=== PATIENT | male | born 1935 | race Two or more races ===

== ENCOUNTER 2020-10-23 15:15 | Inpatient (IN) | payer MEDICARE, OTHER ==
[~2020-10-23] VITALS: Ht 172.7 cm; Wt 63.5 kg
--- NOTE | 2020-10-23 15:32 | NUR ---
Patient brought in RA 84 for a mechnical fall on the right side of body that occurred three days ago, no signs of acute distress noted
--- NOTE | 2020-10-23 15:33 | NUR ---
at bedside for assessment
[2020-10-23] MEDS ORDERED: OMEP40CA13 PO (16:13)
[2020-10-23] MEDS ORDERED: LEVA15HF4 IH (16:13)
[2020-10-23] MEDS ORDERED: GABA300C PO (16:13)
[2020-10-23] MEDS ORDERED: TIOT18CA3 IH (16:13)
[2020-10-23] MEDS ORDERED: LEVO137T2 PO (16:13)
[2020-10-23] MEDS ORDERED: FLUT1DIS28 IH (16:13)
[2020-10-23] MEDS ORDERED: SERT50TA PO (16:13)
[2020-10-23] MEDS ORDERED: ASPI81TA31 PO (16:13)
[2020-10-23] MEDS ORDERED: ZOLP10TA2 PO (16:13)
[2020-10-23] MEDS ORDERED: FLUT1BLS4 IH (16:13)
[2020-10-23] MEDS ORDERED: ATOR10TA PO (16:13)
[2020-10-23] MEDS ORDERED: MELO-105 PO (16:13)
[2020-10-23] MEDS ORDERED: SILO8CAP2 PO (16:13)
[2020-10-23] MEDS ORDERED: ERGO500040 PO (16:13)
[2020-10-23] MEDS ORDERED: UMEC1BLS IH (16:13)
[2020-10-23] MEDS ORDERED: METH5TAB2 PO (16:13)
[2020-10-23] MEDS ORDERED: IV NORMAL SALINE 1000 ML BAG IV ONE (16:45)
[2020-10-23 16:59] LABS: BASOPHILS % (AUTO) 0.2 % (0.0-2.0); EOSINOPHILS # (AUTO) 0.1 K/uL (0.0-0.7); EOSINOPHILS % (AUTO) 2.9 % (0.0-7.0); HEMATOCRIT 36.8 % (36.7-47.1); HEMOGLOBIN 12.4 g/dL (12.5-16.3); LYMPHOCYTES # (AUTO) 1.1 K/uL (20.0-40.0); LYMPHOCYTES % (AUTO) 23.5 % (20.5-51.5); MEAN CORPUSCULAR HEMOGLOBIN 33.2 uug (23.8-33.4); MEAN CORPUSCULAR HGB CONC 34 g/dL (32.5-36.3); MEAN CORPUSCULAR VOLUME 98.8 fL (73.0-96.2); MONOCYTES # (AUTO) 0.3 K/uL (2.0-10.0); MONOCYTES % (AUTO) 6.1 % (0.0-11.0); NEUTROPHILS # (AUTO) 3.2 K/uL (1.8-8.9); NEUTROPHILS % (AUTO) 67.3 % (38.5-71.5); PLATELET COUNT (AUTO) 162 K/uL (152-348); RED BLOOD CELL COUNT(AUTO) 3.72 MIL/uL (4.06-5.63); WHITE BLOOD COUNT (AUTO) 4.7 K/uL (3.6-10.2)
[2020-10-23 17:04] LABS: CREATININE 0.8 mg/dL (0.6-1.3); POTASSIUM 3.9 mmol/L (3.5-5.1)
[2020-10-23] MEDS ORDERED: MORPHINE SULFATE 4 MG/1 ML DISP.SYRIN IV ONE (17:15)
[2020-10-23] MEDS ORDERED: ONDANSETRON 4 MG/2 ML VIAL IV ONE (17:15)
[2020-10-23] MEDS ORDERED: ONDANSETRON 4 MG/2 ML VIAL ONE (17:17)
[2020-10-23] MEDS ORDERED: MORPHINE SULFATE 2 MG/1 ML DISP.SYRIN ONE (17:18)
[2020-10-23 17:20] LABS: BILIRUBIN,DIRECT 0.2 mg/dL (0.0-0.2); BILIRUBIN,TOTAL 0.5 mg/dL (0.2-1.0); TOTAL PROTEIN, SERUM 6.8 g/dL (6.4-8.2)
--- NOTE | 2020-10-23 17:25 | NUR ---
Medsur bed 307
--- NOTE | 2020-10-23 17:30 | NUR ---
urine sent to lab
[2020-10-23 18:08] LABS: *BILIRUBIN,URIN NEGATIVE (NEGATIVE); *BLOOD, URINE NEGATIVE (NEGATIVE); *CLARITY,URINE CLEAR (CLEAR); *COLOR,URINE YELLOW (YELLOW); *KETONES,URINE NEGATIVE (NEGATIVE); *UROBILINOGEN,URINE 0.2 E.U./dl (NORMAL); LEUKOCYTE ESTERASE ,URINE NEGATIVE (NEGATIVE); NITRITE, URINE NEGATIVE (NEGATIVE); UGLUCOSE NEGATIVE (NEGATIVE)
[2020-10-23] MEDS ORDERED: ONDANSETRON 4 MG/2 ML VIAL IV PRN (19:15)
--- NOTE | 2020-10-23 19:46 | NUR ---
Report given to Clare BEATTY Medsurg.
--- NOTE | 2020-10-23 20:15 | NUR ---
Admitted a 85 year old male to tele unit came from Er via gurphi accompanied by ER nurse.Dx of s/p fall and weakness.Patient alert able to make needs know. Farsi speaking .No s/s of distress noted.O2 at 2LPm via NC saturating at 96 %.Iv on left Ac 20g patent and intact. Patient continent ,able to use urinal.Safety measure in place. Call light with in reach. VSS .Will continue to monitor.
[2020-10-23] MEDS: ATORVASTATIN 10 MG TABLET PO SCH (20:38)
[2020-10-23] MEDS: ACETAMINOPHEN 325 MG TABLET PO PRN (20:39)
[2020-10-23 20:52] VITALS: BP 132/67
[2020-10-23] MEDS ORDERED: ZOLPIDEM 5 MG TABLET PO PRN (22:45)
[2020-10-24] MEDS: MORPHINE SULFATE 2 MG/1 ML DISP.SYRIN IV PRN ×3 (00:20→06:44)
[2020-10-24 00:30] VITALS: BP 127/65
--- NOTE | 2020-10-24 00:45 | NUR ---
Patient restless and agitated c/o right hip pain.Dr Dixon made aware with new order given noted and carried out. Morphine IVP given. Will continue to monitor.
[2020-10-24 05:41] VITALS: BP 125/64
[2020-10-24] MEDS: LEVOTHYROXINE SODIUM 137 MCG TABLET PO SCH (06:08)
[2020-10-24] MEDS: PANTOPRAZOLE SODIUM 40 MG TABLET.DR PO SCH (06:08)
[2020-10-24 07:04] LABS: BASOPHILS % (AUTO) 0.4 % (0.0-2.0); EOSINOPHILS # (AUTO) 0.2 K/uL (0.0-0.7); EOSINOPHILS % (AUTO) 3.9 % (0.0-7.0); HEMATOCRIT 36.6 % (36.7-47.1); HEMOGLOBIN 12.2 g/dL (12.5-16.3); LYMPHOCYTES # (AUTO) 1.2 K/uL (20.0-40.0); LYMPHOCYTES % (AUTO) 27.5 % (20.5-51.5); MEAN CORPUSCULAR HEMOGLOBIN 33.2 uug (23.8-33.4); MEAN CORPUSCULAR HGB CONC 33 g/dL (32.5-36.3); MEAN CORPUSCULAR VOLUME 99.3 fL (73.0-96.2); MONOCYTES # (AUTO) 0.3 K/uL (2.0-10.0); MONOCYTES % (AUTO) 7.5 % (0.0-11.0); NEUTROPHILS # (AUTO) 2.7 K/uL (1.8-8.9); NEUTROPHILS % (AUTO) 60.7 % (38.5-71.5); PLATELET COUNT (AUTO) 163 K/uL (152-348); RED BLOOD CELL COUNT(AUTO) 3.68 MIL/uL (4.06-5.63); WHITE BLOOD COUNT (AUTO) 4.5 K/uL (3.6-10.2)
[2020-10-24 07:26] LABS: BILIRUBIN,TOTAL 0.7 mg/dL (0.2-1.0); CREATININE 0.7 mg/dL (0.6-1.3); PHOSPHOROUS 3.1 mg/dL (2.5-4.9); POTASSIUM 3.7 mmol/L (3.5-5.1); TOTAL PROTEIN, SERUM 6.3 g/dL (6.4-8.2)
[2020-10-24] MEDS: GABAPENTIN 300 MG CAPSULE PO SCH ×2 (08:03→16:47)
[2020-10-24] MEDS: MELOXICAM 7.5 MG TABLET PO SCH (08:03)
[2020-10-24] MEDS: SERTRALINE HCL 50 MG TABLET PO SCH (08:04)
[2020-10-24] MEDS: ASPIRIN 81 MG TAB.CHEW PO SCH (08:04)
--- NOTE | 2020-10-24 08:34 | NUR ---
RECEIVED PATIENT AWAKE, ALERT AND ORIENTED. FARSI SPEAKING. ABLE TO MAKE BASIC NEEDS KNOWN. INSTRUCTED PATIENT ON HOW TO USE BEDSIDE PHONE - DAUGHTER'S PHONE NUMBER AT BEDSIDE. PLACED CALL TO DAUGHTER ANDRY. MORNING MEDICATIONS GIVEN ORDERED. DENIES PAIN AT THIS TIME. SAFETY PRECAUTIONS IN PLACE. WILL CONTINUE TO MONITOR.
[2020-10-24] MEDS ORDERED: BREO ELLIPTA 200-25 MCG INH INH SCH ×2 (09:00→12:47)
[2020-10-24] MEDS ORDERED: RAPAFLO PO SCH (09:00)
[2020-10-24] MEDS ORDERED: MORPHINE SULFATE 4 MG/1 ML DISP.SYRIN IV PRN (09:49)
--- NOTE | 2020-10-24 10:06 | NUR ---
PER PATIENT'S SON, PATIENT WOULD LIKE TO MODIFY THE TEXTURE OF HIS FOOD HE WAS HAVING A HARD TIME CHEWING HIS FOOD. ALSO, PATIENT REQUESTED ENSURE WITH EVERY MEAL. WILL NOTIFY .
[2020-10-24 12:00] VITALS: BP 110/69
[2020-10-24] MEDS ORDERED: SILODOSIN 4 MG PO SCH (12:44)
--- NOTE | 2020-10-24 15:05 | NUR ---
SON AND [id number] VISITED THIS AFTERNOON. BROUGHT SOME FOOD FOR PATIENT AT BEDSIDE. SUPERVISOR PROPERTIES NOTED A SMALL KITCHEN KNIFE WITH THE FOOD BROUGHT BY FAMILY. REMOVED KNIFE FROM BEDSIDE AND REPLACED IT WITH A PLASTIC KNIFE A SAFETY PRECAUTION. WILL INFORM FAMILY OF CONTRABAND PROTOCOL, INCLUDING SHARP OBJECTS AT BEDSIDE. SAFETY PRECAUTIONS IN PLACE. WILL CONTINUE TO MONITOR.
[2020-10-24 16:00] VITALS: BP 124/61
[2020-10-24 20:14] VITALS: BP 112/67
[2020-10-24] MEDS: METHADONE HCL 10 MG TABLET PO PRN (21:15)
[2020-10-24] MEDS: ATORVASTATIN 10 MG TABLET PO SCH (21:15)
--- NOTE | 2020-10-24 21:45 | NUR ---
Patient in bed alert and able to make needs known.Farsi speaking c/o right hip pain. Medicated with PRn methadone with good result.No acute distress noted. On O2 at 2LPM via NC saturating at 97%. Denies SOB.Patient requesting for breathing tx.Ashley Dwyer made aware. Stated will f/u with in a.m.Will continue to monitor .continue safety measures.
[2020-10-25 00:24] VITALS: BP 105/56
[2020-10-25] MEDS: ACETAMINOPHEN 325 MG TABLET PO PRN (01:44)
[2020-10-25 05:33] VITALS: BP 124/64
[2020-10-25] MEDS: PANTOPRAZOLE SODIUM 40 MG TABLET.DR PO SCH (06:04)
[2020-10-25] MEDS: LEVOTHYROXINE SODIUM 137 MCG TABLET PO SCH (06:04)
[2020-10-25 06:52] LABS: BASOPHILS % (AUTO) 0.3 % (0.0-2.0); EOSINOPHILS # (AUTO) 0.2 K/uL (0.0-0.7); EOSINOPHILS % (AUTO) 4.4 % (0.0-7.0); HEMATOCRIT 37.2 % (36.7-47.1); HEMOGLOBIN 12.5 g/dL (12.5-16.3); LYMPHOCYTES # (AUTO) 1.1 K/uL (20.0-40.0); LYMPHOCYTES % (AUTO) 22.1 % (20.5-51.5); MEAN CORPUSCULAR HEMOGLOBIN 33.4 uug (23.8-33.4); MEAN CORPUSCULAR HGB CONC 34 g/dL (32.5-36.3); MEAN CORPUSCULAR VOLUME 99.4 fL (73.0-96.2); MONOCYTES # (AUTO) 0.4 K/uL (2.0-10.0); NEUTROPHILS # (AUTO) 3.1 K/uL (1.8-8.9); NEUTROPHILS % (AUTO) 65.2 % (38.5-71.5); PLATELET COUNT (AUTO) 167 K/uL (152-348); RED BLOOD CELL COUNT(AUTO) 3.74 MIL/uL (4.06-5.63); WHITE BLOOD COUNT (AUTO) 4.8 K/uL (3.6-10.2)
--- NOTE | 2020-10-25 07:36 | NUR ---
RECEIVED PATIENT IN BED ASLEEP BUT EASILY AROUSABLE ON ROUNDS HE IS ALERT AND ORIENTED NO S/S OF PAIN OR DISCOMFORTS AT THIS TIME ON O2 AT 2L/M BY NASAL CANULLA WITH NO SOB AT THIS TIME CALL LIGHTS AND PERSONAL BELONGINGS ARE WITHIN EASY REACH WILL CONTINUE TO OBSERVE AND PROVIDE COMFORT.
[2020-10-25 07:44] LABS: CREATININE 0.9 mg/dL (0.6-1.3); PHOSPHOROUS 4.1 mg/dL (2.5-4.9); POTASSIUM 4.4 mmol/L (3.5-5.1)
[2020-10-25] MEDS: SILODOSIN 4 MG PO SCH (08:34)
[2020-10-25] MEDS: SERTRALINE HCL 50 MG TABLET PO SCH (08:35)
[2020-10-25] MEDS: MELOXICAM 7.5 MG TABLET PO SCH (08:35)
[2020-10-25] MEDS: ASPIRIN 81 MG TAB.CHEW PO SCH (08:35)
[2020-10-25] MEDS: GABAPENTIN 300 MG CAPSULE PO SCH ×2 (08:35→16:13)
[2020-10-25] MEDS: METHADONE HCL 10 MG TABLET PO PRN (09:02)
[2020-10-25] MEDS: BREO ELLIPTA 200-25 MCG INH INH SCH (09:13)
--- NOTE | 2020-10-25 09:30 | NUR ---
PATIENT PICKED UP BY BED TO RADIOLOGY FOR CT SCAN ORDERED FAMILY AT THE BEDSIDE VISITING.
--- NOTE | 2020-10-25 09:45 | NUR ---
PATIENT RETURNED BACK TO HIS ROOM AWAKE ALERT AND ORIENTED DENIES DISCOMFORTS NOT IN DISTRESS AT THIS TIME.
[2020-10-25 11:31] VITALS: BP 100/50
--- NOTE | 2020-10-25 11:50 | NUR ---
WOUND CARE CONSULT: PT PRESENTS WITH LEFT 4TH FINGER OPEN WOUND, PRESENT ON ADMISSION. RECOMMEND SURGICAL CONSULT. PT SEEN BY PLASTIC SURGERY Jaya OZUNA. RECOMMENDATIONS MADE FOR WOUND CARE AND SKIN PROTECTION AND DISCUSSED WITH NURSING STAFF WELL SURGICAL Jaya RESTREPO IN AGREEMENT WITH PLAN OF CARE. Addendum: 10/25/20 at 1152 by GARRISON ALARCON RN Amended: Links added. Addendum: 10/25/20 at 1208 by GARRISON ALARCON RN DR BROOKS NOTIFIED OF SURGICAL CONSULT REQUEST.
[2020-10-25 15:32] VITALS: BP 107/59
--- NOTE | 2020-10-25 15:32 | NUR ---
JUNAID DIE DESIGNER APPRENTICE HERE TO SEE PATIENT WITH NEW ORDERS AND NOTED
--- NOTE | 2020-10-25 18:09 | NUR ---
PATIENTS DAUGHTER JOAN HERE AND AWARE OF THE ORDERS FOR CT HEAD CT ABDOMEN AND PELVIS AND ALSO TO GET MEDICAL RECORDS FROM HIS [facility] ONCOLOGIST NEEDED HER TO CONSCENT AND SHE DECLINED STATED THAT THERE WAS NO NEED FOR ALL THAT THEY ALREADY KNOW THAT HE HAS CANCER SO DR SALAZAR AND DR MADRID NOTIFIED THAT PATIENTS DAUGHTER HAS DECLINED THESE TESTS ORDERED.
--- NOTE | 2020-10-25 19:30 | NUR ---
Received patient lying in bed. AAOx4 but Farsi speaking only. [facility] translated for this nurse. Denies any pain or SOB. On O2 at 2LPM via NC in place. NSR on tele at 72/hr. IV site on left AC intact and patent. Safety measure initiated and call dennis within reached.
[2020-10-25 20:06] VITALS: BP 105/69
[2020-10-25] MEDS: ATORVASTATIN 10 MG TABLET PO SCH (20:07)
--- NOTE | 2020-10-25 23:47 | NUR ---
Informed Dr. Garcia that patient and family already agreed to have Ct abd/pelvis with contrast and Ct head without contrast done. IC obtained and verified. Pt NPO at midnight.
[2020-10-26 00:03] VITALS: BP 113/65
[2020-10-26] MEDS: METHADONE HCL 10 MG TABLET PO PRN ×2 (01:36→08:42)
[2020-10-26 04:06] VITALS: BP 117/69
--- NOTE | 2020-10-26 05:55 | NUR ---
AAOx4. Methadone 5mg PO given for complain of hip pain and effective. Denies any SOB. O2 at 2LPM via NC in place. O2 sat at 98%. NSR on tele at 72/hr. IV site on left AC intact and patent. NPO status. Needs attended to and met. Safety measure initiated and call dennis within reached.
[2020-10-26] MEDS: LEVOTHYROXINE SODIUM 137 MCG TABLET PO SCH (06:07)
[2020-10-26] MEDS: PANTOPRAZOLE SODIUM 40 MG TABLET.DR PO SCH (06:07)
[2020-10-26] MEDS ORDERED: SWABABLE VALVE TRANSFER SET EA MC ONE (07:32)
[2020-10-26] MEDS ORDERED: IOHEXOL 300MG/ML 100 ML INFUS..BTL ONE (07:33)
[2020-10-26] MEDS ORDERED: IV NORMAL SALINE 250 ML IV ONE (07:33)
[2020-10-26 08:06] LABS: *IMMUNOGLOBULIN G, SERUM 818 mg/dL (603-1613); IMMUNOGLOBULIN A, SERUM 341 mg/dL (61-437); IMMUNOGLOBULIN M, SERUM 43 mg/dL (15-143)
--- NOTE | 2020-10-26 08:28 | NUR ---
CALL RECEIVED FROM PATIENTS SON EVAN STATED THAT HE HAS CHANGED HIS MIND ABOUT THE CT SCAN EVEN THOUGH THE CONSCENT WAS SIGNED ALREADY WILL NOTIFY THE DOCTOR.
[2020-10-26] MEDS: SERTRALINE HCL 50 MG TABLET PO SCH (08:42)
[2020-10-26] MEDS: GABAPENTIN 300 MG CAPSULE PO SCH (08:42)
[2020-10-26] MEDS: ASPIRIN 81 MG TAB.CHEW PO SCH (08:42)
[2020-10-26] MEDS: MELOXICAM 7.5 MG TABLET PO SCH (08:42)
[2020-10-26] MEDS: SILODOSIN 4 MG PO SCH (08:43)
[2020-10-26] MEDS: BREO ELLIPTA 200-25 MCG INH INH SCH (08:44)
[2020-10-26] MEDS ORDERED: NEOMY/BACITRAC/POLYMI OINT 28.35 GM TUBE TOP SCH (09:00)
--- NOTE | 2020-10-26 09:38 | NUR ---
DR MADRID NOTIFIED RE PATIENTS SON DID NOT WANT THE CT SCAN SHE ORDERED AND SHE STATED WILL CALL AND TALK TO THE FAMILY.
[2020-10-26 10:07] LABS: ALPHA-1-GLOBULIN 0.3 g/dL (0.0-0.4); ALPHA-2-GLOBULIN 0.7 g/dL (0.4-1.0); BETA GLOBULIN 1.1 g/dL (0.7-1.3); GAMMA GLOBULIN 0.9 g/dL (0.4-1.8); GLOBULIN, TOTAL 3.1 g/dL (2.2-3.9); M-SPIKE Not Observed g/dL (Not Observed)
--- NOTE | 2020-10-26 11:00 | NUR ---
CALL RECEIVED FROM PATIENTS DAUGHTER STATED THAT SHE WILL LIKE HER FATHER TO BE DISCHARGED TODAY WILL NOTIFIED DR VAIBHAV HERNANDEZ SOON POSSIBLE.
[2020-10-26 11:32] VITALS: BP 104/69
--- NOTE | 2020-10-26 12:30 | NUR ---
DR BLANK HERE SEEN PATIENT AND NOTIFIED THAT PATIENTS DAUGHTER JOAN WANTS PATIENT DISCHARGED TODAY STATED OKAY AND HE ORDERED FOR PATIENT TO BE DISCHARGE TODAY AND FOR LAUNDRY EQUIPMENT OPERATOR TO FOLLOW UP.
--- NOTE | 2020-10-26 13:00 | NUR ---
PATIENT WILL BE PICKED UIP BY [phone] TODAY WILL NOTIFY THE DAUGHTER JOAN OF DISCHARGE TIMING.
--- NOTE | 2020-10-26 13:41 | NUR ---
PATIENT IS BEING PREPPED FOR DISCHARGE [place] REMOVED WOUND ON HIS LEFT INDEX FINGER CLEANSED AND TX APPLIED PATIENT AWARE THAT HE WILL BE DISCHARGED TODAY WAS TOLD TO HIM BY HIS DAUGHTER.
--- NOTE | 2020-10-26 14:00 | NUR ---
PATIENTS DAUGHTER CALLED AND STATED THAT PATIENT HAS STITCHES ON HIS LEFT RING FINGER BUT I DID NOT SEE ANY STITCHES SO I ASKED 2 NURSES TO VERIFY WITH ME BUT NON OF THEM SAW ANY STITCHES AT THIS TIME DRESSING IS DRY AND INTACT.
[2020-10-26] MEDS ORDERED: BISACODYL 10 MG SUPP.RECT RC ONE (14:15)
--- NOTE | 2020-10-26 15:44 | NUR ---
2:45pm: Hybrid Car Mechanic consultation received. SW spoke with Dr. Shoemaker, and discussed reason for consultation, which includes to assess for safe discharge plan, as patient's family has asked for patient to be discharged home today, and family has refused CT scans that were recommended. Per patients medical records, patient has a history of cancer, and had been seen by an oncologist at [facility] in the past, however patient has not been under the regular care of this oncologist. SW consulted with DIVISION HEAD Ekta Hunt, who stated that she has been in contact with patients daughter, who had expressed not wanting chemotherapy for the patient, and therefore alternative treatment options for patients cancer treatment were discussed. Ekta stated that family would like to do some research on these options before deciding on how to proceed. Per nursing, patient is in constant communication with his family throughout the day, and family is involved in patients care. Discharge plans are for the patient to go home. This SW called patients daughter Antonia [phone] to assess for psychosocial needs, however Antonia was not available and therefore this SW left a voicemail message asking for a call back.
--- NOTE | 2020-10-26 15:45 | NUR ---
PATIENT DISCHARGED PICKED UP BY [facility] IN SATISFACTORY CONDITION WITH ALL HIS PERSONAL BELONGINGS PATIENT HOME MEDICATIONS WAS PICKED UP FROM THE PHARMACY AND GIVEN TO THE LINE APPLIANCE ASSEMBLER TO DELIVER TO PATIENTS DAUGHTER AT HIS HOUSE.
[2020-10-26] MEDS ORDERED: ENSURE ENLIVE (VAN) 240 ML LIQUID PO SCH (17:00)
[2020-10-29] MEDS ORDERED: VITAMIN D2 PO SCH (08:00)
== END 2020-10-26 16:53 | disposition home or self-care (01) | DRG 605 ==
LOC: ER 15:17 → MEDSURG3 19:50 → TELE3 20:29
PROVIDERS: ADMIT Internal Medicine
DX: S70.01XA Contusion of right hip, initial encounter (principal); E44.0 Moderate protein-calorie malnutrition; C78.02 Secondary malignant neoplasm of left lung; C78.01 Secondary malignant neoplasm of right lung; D68.69 Other thrombophilia; M25.551 Pain in right hip; G89.4 Chronic pain syndrome; E89.0 Postprocedural hypothyroidism; Z85.850 Personal history of malignant neoplasm of thyroid; K56.41 Fecal impaction; D64.9 Anemia, unspecified; Z79.891 Long term (current) use of opiate analgesic; Z87.891 Personal history of nicotine dependence; N40.0 Benign prostatic hyperplasia without lower urinary tract symptoms; Z20.822 Contact with and (suspected) exposure to COVID-19; M19.90 Unspecified osteoarthritis, unspecified site; M85.80 Other specified disorders of bone density and structure, unspecified site; D75.89 Other specified diseases of blood and blood-forming organs; N28.1 Cyst of kidney, acquired; S61.215A Laceration without foreign body of left ring finger without damage to nail, initial encounter; F32.9 Major depressive disorder, single episode, unspecified; J44.9 Chronic obstructive pulmonary disease, unspecified; M48.061 Spinal stenosis, lumbar region without neurogenic claudication; M54.16 Radiculopathy, lumbar region; W18.30XA Fall on same level, unspecified, initial encounter; Y93.9 Activity, unspecified; Y92.89 Other specified places as the place of occurrence of the external cause; R59.1 Generalized enlarged lymph nodes; R55 Syncope and collapse; Z74.09 Other reduced mobility; R94.31 Abnormal electrocardiogram [ECG] [EKG]; Z79.890 Hormone replacement therapy; Z68.21 Body mass index [BMI] 21.0-21.9, adult
CPT/HCPCS: 36415; 70030-TC; 71045; 71250; 72131; 72192; 82378; 82652; 82784; 83605; 83690; 83735; 84100; 84153; 84155; 84165; 84443; 85025; 85730; 86334; 87086; 93005; A4663; G0378; J2270; J2405; J7050; Q9967; U0003

== ENCOUNTER 2021-03-20 13:43 | Inpatient (IN) | payer MEDICARE, OTHER ==
[~2021-03-20] VITALS: Ht 172.7 cm; Wt 54.9 kg
[~2021-03-20 13:43] MED LIST: ASPI81TA31 PO; ATOR10TA PO; ERGO500040 PO; FLUT1BLS4 IH; FLUT1DIS28 IH; GABA300C PO; LEVA15HF4 IH; LEVO137T2 PO; MELO-105 PO; METH-815 PO; OMEP40CA21 PO; SERT50TA PO; SILO8CAP2 PO; TIOT18CA3 IH; UMEC1BLS IH; ZOLP10TA2 PO
[2021-03-20] MEDS ORDERED: BISACODYL 10 MG SUPP.RECT RC ONE (14:07)
--- NOTE | 2021-03-20 14:13 | NUR ---
UNABLE TO RECONCILE MEDS PT IS A POOR HISTORIAN.
[2021-03-20] MEDS ORDERED: IV NORMAL SALINE 500 ML BAG IV ONE (14:15)
[2021-03-20] MEDS ORDERED: ONDANSETRON 4 MG/2 ML VIAL IV ONE (14:15)
[2021-03-20] MEDS ORDERED: MORPHINE SULFATE 2 MG/1 ML DISP.SYRIN IV ONE (14:15)
[2021-03-20 14:27] LABS: MEAN CORPUSCULAR HEMOGLOBIN 31.5 uug (23.8-33.4); MEAN CORPUSCULAR VOLUME 93.7 fL (73.0-96.2); PLATELET COUNT (AUTO) 237 K/uL (152-348)
[2021-03-20] MEDS ORDERED: ONDANSETRON 4 MG/2 ML VIAL ONE (14:27)
[2021-03-20] MEDS ORDERED: MORPHINE SULFATE 2 MG/1 ML DISP.SYRIN ONE (14:28)
[2021-03-20 14:35] LABS: CREATININE 0.8 mg/dL (0.6-1.3); POTASSIUM 4.2 mmol/L (3.5-5.1)
[2021-03-20 14:51] LABS: BILIRUBIN,DIRECT 0.1 mg/dL (0.0-0.2); BILIRUBIN,TOTAL 0.5 mg/dL (0.2-1.0); TOTAL PROTEIN, SERUM 5.8 g/dL (6.4-8.2)
--- NOTE | 2021-03-20 16:00 | NUR ---
Pt resting in gurney with eyes closed and no s/s of acute distress noted. Per pt to be admitted to tele, no tele beds available at this time.
[2021-03-20 16:09] LABS: *BILIRUBIN,URIN NEGATIVE (NEGATIVE); *BLOOD, URINE NEGATIVE (NEGATIVE); *CLARITY,URINE SLIGHTLY CLOUDY (CLEAR); *COLOR,URINE YELLOW (YELLOW); *KETONES,URINE NEGATIVE (NEGATIVE); LEUKOCYTE ESTERASE ,URINE NEGATIVE (NEGATIVE); NITRITE, URINE NEGATIVE (NEGATIVE); PH,URINE 7.5 (5.0-8.0); UGLUCOSE NEGATIVE (NEGATIVE)
[2021-03-20 16:15] LABS: BACTERIA,URINE FEW /HPF (NONE SEEN); RBC,URINE 0-3 /HPF (0-3); SQUAMOUS EPITHELIAL CELL,UR NONE SEEN /HPF (NONE SEEN); URINE AMORPHOUS PHOSPHATES MANY /HPF; WBC,URINE 0-3 /HPF (0-3)
[2021-03-20] MEDS ORDERED: METRONIDAZOLE 500 MG/NS 100 ML PIGGYBACK IV ONE (16:45)
[2021-03-20] MEDS ORDERED: PIPERACILLIN SODIUM/TAZOBACTAM 3.375 G in IV DEXTROSE 5% 50 ML IV ONE (16:45)
[2021-03-20] MEDS ORDERED: PIPERACILLIN/TAZOBACTAM/D5W 50 ML IV ONE (17:00)
[2021-03-20] MEDS ORDERED: Z GUARD REMEDY PASTE 57 GM TUBE TOP PRN (17:15)
[2021-03-20] MEDS ORDERED: ONDANSETRON 4 MG/2 ML VIAL IV PRN (17:15)
[2021-03-20] MEDS ORDERED: MAGNESIUM HYDROXIDE 30 ML LIQUID UDC PO PRN (17:15)
[2021-03-20] MEDS ORDERED: ACETAMINOPHEN 325 MG TABLET PO PRN (17:15)
--- NOTE | 2021-03-20 17:30 | NUR ---
Brittny Garcia in to see pt.
[2021-03-20] MEDS ORDERED: levoFLOXacin 500 MG/D5W 100 ML ONE (17:51)
[2021-03-20] MEDS: levoFLOXacin 500 MG/D5W 500 MG in PREMIXED 1 EACH IV SCH (17:53)
--- NOTE | 2021-03-20 18:35 | NUR ---
Pt eating dinner, pending tele admission, NAD noted.
[2021-03-20] MEDS: HYDROCODONE/APAP 10-325 MG TABLET PO PRN (19:29)
[2021-03-20] MEDS ORDERED: HYDROCODONE/APAP 10-325 MG TABLET ONE (19:34)
--- NOTE | 2021-03-20 20:51 | NUR ---
Report given to Diaz BEATTY Tele.
[2021-03-20 22:37] VITALS: BP 101/45
[2021-03-20] MEDS ORDERED: ZOLPIDEM 5 MG TABLET ONE (23:29)
[2021-03-20] MEDS: ATORVASTATIN 10 MG TABLET PO SCH (23:45)
[2021-03-21 00:31] VITALS: BP 105/54
[2021-03-21 04:40] VITALS: BP 108/50
[2021-03-21] MEDS ORDERED: ZOLPIDEM 5 MG TABLET PO PRN (06:00)
[2021-03-21 06:19] LABS: HEMATOCRIT 32.6 % (36.7-47.1); MEAN CORPUSCULAR VOLUME 94.1 fL (73.0-96.2); PLATELET COUNT (AUTO) 210 K/uL (152-348)
[2021-03-21 06:41] LABS: CREATININE 0.8 mg/dL (0.6-1.3); PHOSPHOROUS 4.2 mg/dL (2.5-4.9); POTASSIUM 4.3 mmol/L (3.5-5.1)
[2021-03-21] MEDS: LEVOTHYROXINE SODIUM 137 MCG TABLET PO SCH (06:43)
[2021-03-21] MEDS: PANTOPRAZOLE SODIUM 40 MG TABLET.DR PO SCH (06:43)
[2021-03-21] MEDS ORDERED: PANTOPRAZOLE SODIUM 40 MG TABLET.DR PO SCH (07:00)
[2021-03-21] MEDS: MELOXICAM 7.5 MG TABLET PO SCH (08:51)
[2021-03-21] MEDS: GABAPENTIN 300 MG CAPSULE PO SCH ×2 (08:51→16:22)
[2021-03-21] MEDS: METHADONE HCL 10 MG TABLET PO SCH ×2 (08:51→21:49)
[2021-03-21] MEDS: SERTRALINE HCL 50 MG TABLET PO SCH (08:51)
[2021-03-21] MEDS: ASPIRIN 81 MG TAB.CHEW PO SCH (08:51)
[2021-03-21] MEDS: FLUTICASONE/VILANTEROL 1 EACH BLST.W.DEV INH SCH (09:49)
[2021-03-21 11:58] VITALS: BP 106/47
[2021-03-21 15:15] VITALS: BP 98/47
[2021-03-21] MEDS ORDERED: LACTULOSE 20 G/30 ML LIQUID UDC PO ONE (15:30)
[2021-03-21] MEDS: levoFLOXacin 500 MG/D5W 500 MG in PREMIXED 1 EACH IV SCH (17:09)
--- NOTE | 2021-03-21 18:20 | NUR ---
Patient awake resting in bed. AOx3-4. On 4L O2 via NC, saturating at 95-96%. No signs of acute distress. Patient denies pain/ discomfort. Patient denies SOB/ . Patient compliant with medications and care. Needs anticipated and met. Safety measures provided. Call light within reach. Bed in low position. Will endorse to incoming shift for continuity of care.
[2021-03-21 20:00] VITALS: BP 91/43
--- NOTE | 2021-03-21 20:00 | NUR ---
pt a/ox1 farsee speaking, c/o pain, pain meds given, pt went for ct abdomen this evening. pt 's daughter here to see pt and discuss which meds her father is taken. pt 's iv site infiltrated and new one placed. report given to day nurse.
[2021-03-21] MEDS: HYDROCODONE/APAP 10-325 MG TABLET PO PRN (20:20)
[2021-03-21] MEDS: ATORVASTATIN 10 MG TABLET PO SCH (21:00)
[2021-03-21] MEDS ORDERED: ZOLPIDEM 5 MG TABLET PO SCH (21:00)
[2021-03-21] MEDS: DOCUSATE SODIUM 100 MG CAPSULE PO SCH (21:48)
[2021-03-22 04:00] VITALS: BP 95/51
[2021-03-22] MEDS: PANTOPRAZOLE SODIUM 40 MG TABLET.DR PO SCH (07:00)
[2021-03-22 07:15] LABS: MEAN CORPUSCULAR HEMOGLOBIN 31.1 uug (23.8-33.4); MEAN CORPUSCULAR VOLUME 94.1 fL (73.0-96.2); PLATELET COUNT (AUTO) 203 K/uL (152-348)
[2021-03-22 07:31] LABS: CARBON DIOXIDE 38 mmol/L (21-32); CHLORIDE 96 mmol/L (98-107); CREATINE KINASE, TOTAL 22 U/L (39-308); CREATININE 0.5 mg/dL (0.6-1.3); GLUCOSE 93 mg/dL (74-106); LACTATE DEHYDROGENASE 105 U/L (85-227); POTASSIUM 4.4 mmol/L (3.5-5.1); UREA NITROGEN, BLOOD 20 mg/dL (7-18)
[2021-03-22] MEDS: LEVOTHYROXINE SODIUM 137 MCG TABLET PO SCH (07:52)
[2021-03-22] MEDS: METHADONE HCL 10 MG TABLET PO SCH ×2 (07:59→20:15)
[2021-03-22] MEDS: ASPIRIN 81 MG TAB.CHEW PO SCH (07:59)
[2021-03-22] MEDS: DOCUSATE SODIUM 100 MG CAPSULE PO SCH ×2 (08:00→20:15)
[2021-03-22] MEDS: GABAPENTIN 300 MG CAPSULE PO SCH ×2 (08:00→16:05)
[2021-03-22] MEDS: SERTRALINE HCL 50 MG TABLET PO SCH (08:00)
[2021-03-22] MEDS: FLUTICASONE/VILANTEROL 1 EACH BLST.W.DEV INH SCH (08:00)
[2021-03-22] MEDS: MELOXICAM 7.5 MG TABLET PO SCH (08:00)
[2021-03-22 09:34] LABS: IRON, SERUM 23 ug/dL (50-175)
[2021-03-22 09:37] LABS: FERRITIN 114 ng/mL (26-388)
[2021-03-22] MEDS ORDERED: IV NORMAL SALINE 500 ML IV ONE ×2 (11:00→19:00)
[2021-03-22 11:17] VITALS: BP_SYST 90; BP_SYST 92; BP_DIAS 45; BP_DIAS 52
[2021-03-22 16:05] VITALS: BP 97/48
[2021-03-22] MEDS: ENSURE ENLIVE (VAN) 240 ML LIQUID PO SCH (16:06)
[2021-03-22] MEDS: levoFLOXacin 500 MG/D5W 500 MG in PREMIXED 1 EACH IV SCH (17:02)
[2021-03-22 20:00] VITALS: BP 81/41
[2021-03-22] MEDS ORDERED: IRON SUCROSE COMPLEX 200 MG in IV NORMAL SALINE 100 ML IV SCH (20:00)
[2021-03-22] MEDS: SOD FERRIC GLUC COMPLX/SUCROSE 125 MG in IV NORMAL SALINE 100 ML IV SCH (20:09)
[2021-03-22] MEDS: ATORVASTATIN 10 MG TABLET PO SCH (20:15)
[2021-03-23] VITALS (21 sets, daily range): BP systolic 90–117; BP diastolic 43–71
[2021-03-23] MEDS: PANTOPRAZOLE SODIUM 40 MG TABLET.DR PO SCH (06:03)
[2021-03-23] MEDS: LEVOTHYROXINE SODIUM 137 MCG TABLET PO SCH (06:03)
[2021-03-23 06:37] LABS: MEAN CORPUSCULAR HEMOGLOBIN 31.4 uug (23.8-33.4); MEAN CORPUSCULAR VOLUME 96.2 fL (73.0-96.2); PLATELET COUNT (AUTO) 192 K/uL (152-348)
[2021-03-23 06:54] LABS: CREATININE 1.1 mg/dL (0.6-1.3); PHOSPHOROUS 4.9 mg/dL (2.5-4.9); POTASSIUM 5.7 mmol/L (3.5-5.1)
[2021-03-23] MEDS ORDERED: IV NS 1000 ML 1,000 ML IV ONE (08:30)
[2021-03-23] MEDS ORDERED: DEXTROSE 50% 50 ML DISP.SYRIN IV ONE ×3 (08:30→20:30)
[2021-03-23] MEDS ORDERED: INSULIN REGULAR, HUMAN 300 UNIT/3 ML VIAL IV ONE (08:30)
[2021-03-23] MEDS: ASPIRIN 81 MG TAB.CHEW PO SCH (08:43)
[2021-03-23] MEDS: DOCUSATE SODIUM 100 MG CAPSULE PO SCH ×2 (08:43→21:00)
[2021-03-23] MEDS: SERTRALINE HCL 50 MG TABLET PO SCH (08:44)
[2021-03-23] MEDS: SILODOSIN 4MG CAPSULE PO SCH (08:44)
[2021-03-23] MEDS: METHADONE HCL 10 MG TABLET PO SCH ×2 (08:44→21:00)
[2021-03-23] MEDS: ENSURE ENLIVE (VAN) 240 ML LIQUID PO SCH ×2 (08:44→17:00)
[2021-03-23] MEDS: GABAPENTIN 300 MG CAPSULE PO SCH (08:44)
[2021-03-23] MEDS: MELOXICAM 7.5 MG TABLET PO SCH (08:44)
[2021-03-23] MEDS: FLUTICASONE/VILANTEROL 1 EACH BLST.W.DEV INH SCH (10:45)
[2021-03-23] MEDS: SOD FERRIC GLUC COMPLX/SUCROSE 125 MG in IV NORMAL SALINE 100 ML IV SCH (14:18)
[2021-03-23] MEDS ORDERED: LEVOFLOXACIN/D5W 250 MG in PREMIX 1 EA IV SCH (17:00)
[2021-03-23] MEDS ORDERED: CEFTRIAXONE 1 G in IV DEXTROSE 5% 50 ML IV SCH (17:00)
[2021-03-23] MEDS ORDERED: IV D5 1/2 NS 1000 ML 1,000 ML IV PRN (18:00)
[2021-03-23 18:47] LABS: *BILIRUBIN,URIN NEGATIVE (NEGATIVE); *BLOOD, URINE 1+ (NEGATIVE); *CLARITY,URINE CLEAR (CLEAR); *COLOR,URINE DARK YELLOW (YELLOW); *KETONES,URINE NEGATIVE (NEGATIVE); *UROBILINOGEN,URINE 0.2 E.U./dl (NORMAL); LEUKOCYTE ESTERASE ,URINE NEGATIVE (NEGATIVE); NITRITE, URINE NEGATIVE (NEGATIVE); PH,URINE 5.5 (5.0-8.0); UGLUCOSE NEGATIVE (NEGATIVE)
[2021-03-23] MEDS ORDERED: ASPIRIN 325 MG TABLET PO ONE (19:00)
[2021-03-23] MEDS ORDERED: IV D5W 1000ML 1,000 ML IV PRN (19:00)
[2021-03-23 19:01] LABS: HEMATOCRIT 35.8 % (36.7-47.1); MEAN CORPUSCULAR HEMOGLOBIN 31.3 uug (23.8-33.4); MEAN CORPUSCULAR VOLUME 96.9 fL (73.0-96.2); PLATELET COUNT (AUTO) 180 K/uL (152-348)
[2021-03-23] MEDS ORDERED: SWABABLE VALVE TRANSFER SET EA MC ONE (19:07)
[2021-03-23] MEDS ORDERED: IOHEXOL 350 100 ML INFUS..BTL ONE (19:07)
[2021-03-23] MEDS ORDERED: IV NORMAL SALINE 250 ML IV ONE (19:08)
[2021-03-23 19:09] LABS: CREATININE 0.7 mg/dL (0.6-1.3); POTASSIUM 4.5 mmol/L (3.5-5.1)
[2021-03-23 19:13] LABS: BACTERIA,URINE NONE SEEN /HPF (NONE SEEN); SQUAMOUS EPITHELIAL CELL,UR FEW /HPF (NONE SEEN); URINE AMORPHOUS URATE FEW /HPF
--- NOTE | 2021-03-23 19:20 | NUR ---
RECEIVED PATIENT FROM CT S/P CODE STROKE FROM THE MEDICAL SURGICAL FLOOR . PATIENT VERY LETHARGIC AROUSAL ONLY OT PAIN ,ON AND OFF MOVED UPPER AND LOWER EXTREMITIES BUT VERY WEAK . ON 02 AT 4L/MIN TOLERATING SATURATION 100% AND RR 18 TO 20, PATIENT DOESN'T NOT FOLLOW COMMANDS ,CONNECTED TO ICU MONITOR . PATIENT WITH CONDOM CATHETER IN PLACED . NEUROLOGIST AT THE TELESTROKE MONITOR SCREEN DOING HIS TELE STROKE ASSESSMENT . PATIENT UNABLE TO FOLLOW COMMANDS,AND EXAM IS LIMITED DUE TO LANGUAGE BARRIER .CT NO BLEED ,AMS DUE TO HYPOGLYCEMIA .MEDICAL HISTORY GIVEN TO THE NEUROLOGIST.
--- NOTE | 2021-03-23 19:30 | NUR ---
temperature low done rectally 94.5 F,placed Rahul hugger to warm patient .
--- NOTE | 2021-03-23 19:31 | NUR ---
teleneurologist consult at bedside DR: GEMINI MACIEL 1.ALTERED MENTAL STATUS- WITH SEVER HYPOGLYCEMIA THAT IS BEING CORRECTED ,NOT LIKELY TO BE STROKE WITH NON FOCAL EXAMINATION AND KNOWN REASON FOR ALTERED MENTAL STATUS .ENCEPHALOPATHY BEST EXPLAIN AND HYPOGLYCEMIA . PLEASE REFER TO HIS NOTES IN THE CHART .
--- NOTE | 2021-03-23 19:45 | NUR ---
called troponin result to SG DAVISON . TROPONIN 1.471 (H)
--- NOTE | 2021-03-23 19:50 | NUR ---
During rounds, patient appeared lethargic and difficult to arouse. Patient had cold, clammy skin. Vital signs taken 91/62, MO 82, O2 saturation 96%. Blood glucose was 12. Grand juice with sugar given. Blood glucose retaken was 15. Contacted Dr. Underwood for orders. D50 50ml one time order given. Order carried out. Blood glucose retaken after 10 minutes was 174. Patient remained lethargic. Blood glucose taken was 149. Continued to monitor patient and attempted to arouse. Rechecked blood glucose, blood glucose was 130. Patient still remained difficult to arouse. Rechecked blood glucose, blood glucose was 76. Rapid response called at 1841pm due to altered mental status. Code stroke called at 1844pm. Dr. Underwood informed of code stroke. Dr. Wright of ED responded and gave orders. Orders carried out. Patient tranfered to CCU. Nursing report given to CCU RN.
--- NOTE | 2021-03-23 20:00 | NUR ---
fingerstick done and blood sugar is 58 low - given x1 d50
--- NOTE | 2021-03-23 20:30 | NUR ---
PATIENTS DAUGHTER JOAN VERY ACCUSATORY AND SAYING THAT THE RN UPSTAIRS KILL THE PATIENT AND OVER MEDICATED PATIENT WITH METHADONE AND GAVE PATIENT INSULIN AND DROP THE BLOOD SUGAR AND DID NOT CHECKED THE BLOOD SUGAR . INFORMED THAT WHATEVER HAPPENS UPSTAIRS I HAVE NO INFORMATION I'M HERE IN ICU NOW AND WILL DO WHAT I CAN FOR THIS PATIENT AND WILL FOLLOW ORDERS ACCORDINGLY AND WILL UPDATE HER EVERY NOW AND THEN WHAT MEDICATION IM GIVING .
[2021-03-23] MEDS ORDERED: GLUCAGON,HUMAN RECOMBINANT 1 MG VIAL IM ONE (20:45)
[2021-03-23] MEDS ORDERED: VANCOMYCIN IV 1,000 MG in IV DEXTROSE 5% 250 ML IV ONE (21:00)
[2021-03-23] MEDS: ATORVASTATIN 10 MG TABLET PO SCH (21:00)
[2021-03-23] MEDS ORDERED: IV 10% DEXTROSE 1,000 ML IV PRN (21:00)
[2021-03-23 21:01] LABS: ABG BASE EXCESS 7.3 mmol/L; ABG HCO3 38.3 mmol/L; ABG PCO2 97.5 mmHg (35.0-45.0); ABG PH 7.212 (7.350-7.450); ABG SITE RIGHT RADIAL; ABG TOTAL HEMOGLOBIN 12.1 G/dL (13.5-18.0); COHb 1.8 % (0.5-1.5); MetHb 0.2 % (0.0-1.5); O2Hb 92.9 % (94.0-97.0); VENT MODE Nasal Cannula
[2021-03-23] MEDS: HYDROCORTISONE SOD SUCCINATE 100 MG/2 ML VIAL IV SCH (21:12)
--- NOTE | 2021-03-23 21:15 | NUR ---
abg result dictated to MANAGER OF [facility] LENI BETTENCOURT and EKG results fax to MANAGER OF [facility] ALSO .
--- NOTE | 2021-03-23 21:30 | NUR ---
inserted Nicole catheter done aseptically , no resistance , urine send for c and s.
--- NOTE | 2021-03-23 22:00 | NUR ---
RESPIRATORY THERAPIST AT B/S PLACED PATIENT ON BIPAP 15/5 RATE 20 100% FIO2.
[2021-03-23] MEDS: PIPERACILLIN SODIUM/TAZOBACTAM 3.375 G in IV DEXTROSE 5% 50 ML IV SCH (22:03)
[2021-03-23] MEDS ORDERED: HEPARIN SODIUM,PORCINE 5,000 UNITS/ML VIAL IV ONE (22:15)
[2021-03-23] MEDS: HEPARIN/D5W DRIP 500 ML IV PRN (22:42)
[2021-03-23] MEDS: OCTREOTIDE ACETATE 50 MCG/1 ML ML SQ SCH ×2 (22:49→23:05)
[2021-03-23] MEDS ORDERED: OCTREOTIDE ACETATE 500 MCG/1 ML VIAL ONE ×2 (22:53→23:08)
[2021-03-23] MEDS ORDERED: IV D5W 1000ML 1,000 ML IV ONE (23:15)
[2021-03-23 23:31] LABS: ABG BASE EXCESS 9.8 mmol/L; ABG HCO3 43.2 mmol/L; ABG PCO2 128.3 mmHg (35.0-45.0); ABG PH 7.145 (7.350-7.450); ABG PO2 195.8 mmHg (75.0-100.0); ABG SITE RIGHT RADIAL; ABG TOTAL HEMOGLOBIN 12.4 G/dL (13.5-18.0); COHb 1.4 % (0.5-1.5); MetHb 0.3 % (0.0-1.5); O2Hb 97.5 % (94.0-97.0); VENT MODE BIPAP 15/5
[2021-03-24] VITALS (103 sets, daily range): BP systolic 38–176; BP diastolic 19–104
--- NOTE | 2021-03-24 | NUR ---
CALLED PATIENT FAMILY MEMBERS UNABLE TO CALL JOAN DAUGHTER PHONE KEEPS ON RINGING CALLED EVAN AND INFORMED PATIENT NEED TO BE INTUBATED HE SAID YES GO AHEAD AND INTUBATE PATIENT AND THEY ARE ON THERE WAY TO THE HOSPITAL .
[2021-03-24] MEDS ORDERED: ETOMIDATE 20 MG/10 ML VIAL IV ONE ×2 (00:05→06:00)
[2021-03-24] MEDS ORDERED: ROCURONIUM BROMIDE 50 MG/5 ML VIAL IV ONE ×2 (00:06→06:00)
--- NOTE | 2021-03-24 00:10 | NUR ---
ADAN CARMEN called ER MD TO SEE PATIENT : DR :ARPIT MARTINEZ CAME AND INTUBATED PATIENT .
[2021-03-24] MEDS ORDERED: PROPOFOL 50 ML IV PRN (00:30)
[2021-03-24] MEDS: IV D5/ 0.9% NACL 1,000 ML IV PRN ×2 (00:30→14:26)
[2021-03-24] MEDS ORDERED: IV NS 1000 ML 1,000 ML IV ONE (00:30)
[2021-03-24] MEDS: NOREPINEPHRINE BITARTRATE 8 MG in IV NORMAL SALINE 242 ML IV PRN ×2 (00:55→15:23)
--- NOTE | 2021-03-24 00:56 | NUR ---
called PATSY DIAZ patient went to SB [facility] and PEA,ACLS protocol followed and JUANITO MARTINEZ came and mandated the code blue . see code blue papers .
--- NOTE | 2021-03-24 01:09 | NUR ---
PER ADAN CARMEN ADVISED TO RETRACT THE ETT 2CM INFORMED CLEMENTINE RESPIRATORY THERAPIST . DONE
--- NOTE | 2021-03-24 01:14 | NUR ---
SPOKED TO DAUGHTER VIA PHONE NAME JOAN NOW SHE WANTS HIM NO CODE AND SHES COMING TO THE HOSPITAL .
[2021-03-24 01:21] LABS: ABG BASE EXCESS 9.5 mmol/L; ABG HCO3 37.2 mmol/L; ABG PCO2 68.3 mmHg (35.0-45.0); ABG PH 7.354 (7.350-7.450); ABG PO2 438.1 mmHg (75.0-100.0); ABG SITE RIGHT RADIAL; ABG TOTAL HEMOGLOBIN 11.3 G/dL (13.5-18.0); COHb 0.9 % (0.5-1.5); MetHb 0.2 % (0.0-1.5); O2Hb 98.8 % (94.0-97.0); VENT MODE VENT - A/C; VT, ABG 450 mL
[2021-03-24] MEDS ORDERED: NOREPINEPHRINE BITARTRATE 4 MG/4 ML VIAL IV ONE (01:28)
--- NOTE | 2021-03-24 01:30 | NUR ---
cally BEATTY /YAMILKA Rosas at bedside for PICCLINE insertion .
--- NOTE | 2021-03-24 01:40 | NUR ---
chest xray at bedside for portable chest . verification of piccline placement .
--- NOTE | 2021-03-24 01:57 | NUR ---
family at bedside daughter and son .
--- NOTE | 2021-03-24 02:00 | NUR ---
daughter JOAN refused NGT placement and thinking of DNR . she will meet with all siblings in the morning .
--- NOTE | 2021-03-24 04:00 | NUR ---
TEMPERATURE 100.4 F RECTALLY ,SPONGE BATH PATIENT WITH COLD WATER APPLIED ICE PACKS TO BILATERAL GROIN AND AXILLARY AREA .
[2021-03-24] MEDS: PIPERACILLIN SODIUM/TAZOBACTAM 3.375 G in IV DEXTROSE 5% 50 ML IV SCH ×4 (04:30→21:04)
[2021-03-24] MEDS ORDERED: PROPOFOL 100 ML IV PRN (04:45)
[2021-03-24] MEDS ORDERED: Z GUARD REMEDY PASTE 57 GM TUBE TOP PRN (04:45)
[2021-03-24] MEDS: PROPOFOL 100 ML IV PRN ×3 (04:51→23:28)
[2021-03-24 05:07] LABS: HEMATOCRIT 33.7 % (36.7-47.1); PLATELET COUNT (AUTO) 164 K/uL (152-348)
[2021-03-24 05:24] LABS: CREATININE 0.7 mg/dL (0.6-1.3); MAGNESIUM 1.7 mg/dL (1.8-2.4); PHOSPHOROUS 2.8 mg/dL (2.5-4.9); POTASSIUM 4.6 mmol/L (3.5-5.1)
[2021-03-24 05:26] LABS: ABG BASE EXCESS 12.1 mmol/L; ABG HCO3 35.9 mmol/L; ABG PCO2 42.9 mmHg (35.0-45.0); ABG PO2 238.3 mmHg (75.0-100.0); ABG SITE RIGHT RADIAL; COHb 0.8 % (0.5-1.5); MetHb 0.2 % (0.0-1.5); O2Hb 98.6 % (94.0-97.0); VENT MODE VENT - A/C; VT, ABG 450 mL
--- NOTE | 2021-03-24 05:33 | NUR ---
Pt is currently on AC 24, VT 450, PEEP +5 and FIO2 40%. 7.5 ETT is patent and secure at approx. 24 cm at the lip. Pt had been routinely sx'd and is in no resp. distress. Ventilator alarms are on and audible. BVM is at bedside.
[2021-03-24] MEDS ORDERED: SUCCINYLCHOLINE CHLORIDE 200 MG/10 ML VIAL IV ONE (06:00)
[2021-03-24] MEDS: PANTOPRAZOLE SODIUM 40 MG TABLET.DR PO SCH (06:17)
[2021-03-24] MEDS: LEVOTHYROXINE SODIUM 137 MCG TABLET PO SCH (06:18)
[2021-03-24] MEDS: HYDROCORTISONE SOD SUCCINATE 100 MG/2 ML VIAL IV SCH ×3 (06:19→21:03)
--- NOTE | 2021-03-24 07:15 | NUR ---
Received report from sports agent nurse, patient in bed on propofol but able to move all extremities. Opens eyes to light pain. Vent on AC mode, Levophed infusing at 0.1mcg/kg/min, Afebrile. Nicole catheter intact and draining appropriately. Sacral redness noted with mepilex in place. SCD's on. Bed in low position, side rial up x2, all alarms checked.
[2021-03-24] MEDS: OCTREOTIDE ACETATE 50 MCG/1 ML ML SQ SCH ×3 (07:42→21:05)
[2021-03-24] MEDS ORDERED: HEPARIN SODIUM,PORCINE 5,000 UNITS/ML VIAL SQ ONE (07:45)
--- NOTE | 2021-03-24 07:58 | NUR ---
ENDORSED TO DAY SHIFT RN MATTHIAS . PATIENT IN BED TOLERATING VENT SETTINGS SEDATED ON PROPOFOL AND ON LEVOPHED DRIP FOR BP SUPPORT .
[2021-03-24] MEDS ORDERED: HEPARIN SODIUM,PORCINE 5,000 UNITS/ML VIAL IV ONE (08:15)
[2021-03-24] MEDS: BLOOD SUGAR DIAGNOSTIC 1 EACH STRIP VI SCH ×9 (08:23→22:41)
[2021-03-24] MEDS ORDERED: SERTRALINE HCL 50 MG TABLET GT SCH (08:55)
[2021-03-24] MEDS ORDERED: ASPIRIN 81 MG TAB.CHEW GT SCH (08:56)
[2021-03-24] MEDS ORDERED: ZOLPIDEM 5 MG TABLET GT PRN (08:56)
[2021-03-24] MEDS ORDERED: ZOLPIDEM 5 MG TABLET NG PRN (08:57)
[2021-03-24] MEDS ORDERED: METHADONE HCL 10 MG TABLET GT SCH (08:57)
[2021-03-24] MEDS ORDERED: MAGNESIUM HYDROXIDE 30 ML LIQUID UDC NG PRN (08:59)
[2021-03-24] MEDS: ASPIRIN 81 MG TAB.CHEW NG SCH (09:00)
[2021-03-24] MEDS ORDERED: LACTULOSE 20 G/30 ML LIQUID UDC GT SCH (09:00)
[2021-03-24] MEDS: LACTULOSE 20 G/30 ML LIQUID UDC NG SCH (09:00)
[2021-03-24] MEDS: FLUTICASONE/VILANTEROL 1 EACH BLST.W.DEV INH SCH (09:00)
[2021-03-24] MEDS ORDERED: LACTULOSE 20 G/30 ML LIQUID UDC PO SCH (09:00)
[2021-03-24] MEDS: METHADONE HCL 10 MG TABLET NG SCH ×2 (09:00→20:59)
[2021-03-24] MEDS: SILODOSIN 4MG CAPSULE PO SCH (09:00)
[2021-03-24] MEDS: ENSURE ENLIVE (VAN) 240 ML LIQUID NG SCH ×2 (09:00→17:00)
--- NOTE | 2021-03-24 09:06 | NUR ---
Patients family is at the bedside, discussed need for NG tube in order to administer medications. Patients son stated that he needs to talk to the sister that is a nurse, and refused at this time for NG insertion.
[2021-03-24] MEDS ORDERED: DOCUSATE SODIUM 100 MG/10 ML LIQUID UDC NG PRN (09:15)
[2021-03-24] MEDS: Z GUARD REMEDY PASTE 57 GM TUBE TOP SCH ×2 (11:29→20:59)
[2021-03-24] MEDS ORDERED: HEPARIN SODIUM,PORCINE 5,000 UNITS/ML VIAL IV PRN (11:30)
--- NOTE | 2021-03-24 11:39 | NUR ---
Patient's family requested to sign paperwork as to the withdrawal of care. Patient notified by this expert medical writer that contact will be made with the practitioner and that they should express their wishes to her. YAMILKA Underwood notified.
--- NOTE | 2021-03-24 11:45 | NUR ---
sound effects technician at bedside, after discussing with patients family that they want to withdraw care, they refused echocardiogram.
--- NOTE | 2021-03-24 12:17 | NUR ---
YAMILKA Johnson notified that patient has a temperature of 100F. no new orders received at this time.
--- NOTE | 2021-03-24 12:20 | NUR ---
Laura Underwood notified that the family changed their mind and does not want to withdraw care as one of the son's does not agree. They want to continue with trying to "feed patient and see what happens in a few days to give him a chance".
[2021-03-24] MEDS: ACETAMINOPHEN 650 MG/20.3 ML LIQUID UDC NG PRN (13:05)
[2021-03-24] MEDS: MAGNESIUM SULFATE/D5W 100 ML IV SCH ×2 (14:07→15:01)
[2021-03-24] MEDS ORDERED: VANCOMYCIN IV 750 MG in IV DEXTROSE 5% 250 ML IV SCH (15:00)
[2021-03-24] MEDS: SOD FERRIC GLUC COMPLX/SUCROSE 125 MG in IV NORMAL SALINE 100 ML IV SCH (15:09)
[2021-03-24] MEDS: FENTANYL CITRATE/PF 1,000 MCG in IV NORMAL SALINE 80 ML IV PRN (15:24)
--- NOTE | 2021-03-24 15:47 | NUR ---
NARENDRA Consult: SW was requested for consult. NARENDRA was present with Lakeshia, Admin and family discussing on treatment. Family had concerns in regards to patients treatment and in regards to Methadone dosages. Lakeshia went through patient's medication list and explained what was given to pt. Lakeshia expressed to conduct a meeting with administration and family to come to a conclusion. Dr. Mcmahon also spoke with pt's daughter and explained what would be the appropriate treatment for pt. Lakeshia will coordinate meeting.
[2021-03-24] MEDS: VANCOMYCIN FOR PO/GT/NG USE NG SCH (16:59)
--- NOTE | 2021-03-24 18:36 | NUR ---
Patient continues to be sedated on propofol 25mcg/kg/min, and fentanyl 25mcg/hr. Patient is intubated, afebrile at this time. Patient has episodes of bradycardia. Patient continues to be on heparin drip, minor oral bleeding noted, OG tube to feeding at 10cc/hr, patient has 50 residual as of now. Received orders for reglan from YAMILKA Underwood. Air mattress inflated, scd's on. Bed in low position, side rails up x2. Will give report to casino shift manager nurse.
--- NOTE | 2021-03-24 20:00 | NUR ---
rounds made patient in bed resting and tolerating vent setting AC 24/450 TV /PEEP OF 5 FIO2 40% .saturation 100% rr 24, suction via ett and around the mouth with moderate amt of thick to thin brownish to blood blood. sedated on propofol and on fentanyl drip patient withdraws to pain but doesn't follow commands .open eyes but doesn't follow .TF in progress Glucerna at 10 ml /hr ,hob up and aspiration precaution observed , Levophed drip in progress for BP support .heparin drip in progress and to follow heparin drip protocol appt is due and will call labs to draw the blood . continue to monitor v/s q15 minutes and to monitor levels of comfort . sr to sb on the heart monitor .patient in DNR status .
--- NOTE | 2021-03-24 20:42 | NUR ---
RECEIVED PATIENT INTUBATED ON A MECHANICAL VENTILATOR WITH THE FOLLOWING SETTINGS THAT ARE CHARTED ON THE MECHANICAL VENTILATOR NOTES. PATIENT HAS A SIZE 7.5 ET TUBE. ET TUBE IS PATENT AND SECURED AT APPROX 24CM AT THE LIP USING AN ANCHOR FAST. AMBU BAG IS BY BEDSIDE. VENTILATOR IS PLUGGED IN THE RED EMERGENCY OUTLET. VENTILATOR ALARMS CHECKED AND THEY ARE ON AND AUDIBLE. PATIENT IS TOLERATING CURRENT VENTILATOR SETTINGS WELL WITH NO SOB NOTED AT THIS TIME. WILL CONTINUE TO MONITOR.
[2021-03-24] MEDS: DOCUSATE SODIUM 100 MG/10 ML LIQUID UDC NG SCH (21:02)
[2021-03-24] MEDS: ATORVASTATIN 10 MG TABLET NG SCH (21:03)
--- NOTE | 2021-03-24 21:30 | NUR ---
suction via the ett and around the mouth ,oral care done . turned and reposition patient and offloaded back with pillows . upper bilateral extremities elevated with pillows .
[2021-03-24] MEDS: METOCLOPRAMIDE HCL 10 MG/10 ML UDC NG SCH (23:29)
[2021-03-25] VITALS (94 sets, daily range): BP systolic 76–156; BP diastolic 37–85
--- NOTE | 2021-03-25 00:19 | NUR ---
patient son EVAN came with his and visited patient ,updated with patient v/s ,medication and vent .EVAN verbalizes that his father dont want any of this and he will speak again to her sister in the morning about the ETT AND VENT .
[2021-03-25] MEDS: BLOOD SUGAR DIAGNOSTIC 1 EACH STRIP VI SCH ×7 (00:39→23:40)
--- NOTE | 2021-03-25 02:00 | NUR ---
decrease Levophed drip to 0.03 mcg/kg/min bp 122 /65 hr 62. continue to monitor bp .
[2021-03-25] MEDS: IV D5/ 0.9% NACL 1,000 ML IV PRN ×2 (02:39→14:44)
--- NOTE | 2021-03-25 03:00 | NUR ---
am care done ,bath patient changed soiled linens and gown . z guard applied to sacral area , placed protective Mepilex to sacral area c/o redness.turned and offloaded back with pillow ,heels off loaded with pillows . Nicole care done . tolerating tube feeding ,increase to 20 ml/hr and continue to checked residual very minimal residual about 10 ml.hob up aspiration precaution observed .
[2021-03-25] MEDS: PIPERACILLIN SODIUM/TAZOBACTAM 3.375 G in IV DEXTROSE 5% 50 ML IV SCH ×2 (03:26→10:29)
[2021-03-25 05:07] LABS: HEMATOCRIT 29.6 % (36.7-47.1); MEAN CORPUSCULAR HEMOGLOBIN 31.6 uug (23.8-33.4); PLATELET COUNT (AUTO) 165 K/uL (152-348)
[2021-03-25] MEDS: HYDROCORTISONE SOD SUCCINATE 100 MG/2 ML VIAL IV SCH ×3 (05:34→21:35)
[2021-03-25] MEDS: METOCLOPRAMIDE HCL 10 MG/10 ML UDC NG SCH ×3 (05:34→18:00)
[2021-03-25 05:35] LABS: BILIRUBIN,DIRECT 0.2 mg/dL (0.0-0.2); BILIRUBIN,TOTAL 0.4 mg/dL (0.2-1.0); TOTAL PROTEIN, SERUM 4.7 g/dL (6.4-8.2)
[2021-03-25] MEDS: OCTREOTIDE ACETATE 50 MCG/1 ML ML SQ SCH ×3 (05:35→21:35)
[2021-03-25 05:36] LABS: CREATININE 0.6 mg/dL (0.6-1.3); MAGNESIUM 1.9 mg/dL (1.8-2.4); PHOSPHOROUS 2.2 mg/dL (2.5-4.9); POTASSIUM 3.5 mmol/L (3.5-5.1)
[2021-03-25] MEDS: HEPARIN/D5W DRIP 500 ML IV PRN ×2 (05:41→06:37)
[2021-03-25 05:56] LABS: ABG BASE EXCESS 10.4 mmol/L; ABG HCO3 33.6 mmol/L; ABG PCO2 39.5 mmHg (35.0-45.0); ABG PH 7.548 (7.350-7.450); ABG PO2 112.3 mmHg (75.0-100.0); ABG SITE RIGHT RADIAL; ABG TOTAL HEMOGLOBIN 10.4 G/dL (13.5-18.0); COHb 0.6 % (0.5-1.5); MetHb 0.2 % (0.0-1.5); O2Hb 97.6 % (94.0-97.0); VENT MODE VENT - A/C; VT, ABG 450 mL
[2021-03-25] MEDS: LEVOTHYROXINE SODIUM 137 MCG TABLET NG SCH (06:36)
--- NOTE | 2021-03-25 07:15 | NUR ---
Received report from warehouse supervisor 3rd shift nurse, patient in bed sedated on propofol and fentanyl with ETT in place ventilating adequately. Nicole catheter intact and draining appropriately. Patient is on air mattress with SCD's on. Alarms checked for safety, side rails up x2, bed alarm on. Patient is on levophed, and IV fluids infusing through right arm Picc line. Left arm swollen from prior infiltrated IV.
--- NOTE | 2021-03-25 07:45 | NUR ---
This comic book writer notified by Radiology partners that ET Tube must be pulled back 4 cm. Notified Respiratory therapist and adjustments made per radiologist.
[2021-03-25] MEDS: FLUTICASONE/VILANTEROL 1 EACH BLST.W.DEV INH SCH (08:01)
[2021-03-25] MEDS: PANTOPRAZOLE ORAL SUSPENSION 40 MG SUSPDR.PKT NG SCH (08:01)
[2021-03-25] MEDS: SERTRALINE HCL 50 MG TABLET NG SCH (08:01)
[2021-03-25] MEDS: ASPIRIN 81 MG TAB.CHEW NG SCH (08:01)
[2021-03-25] MEDS: LACTULOSE 20 G/30 ML LIQUID UDC NG SCH (08:02)
[2021-03-25] MEDS: DOCUSATE SODIUM 100 MG/10 ML LIQUID UDC NG SCH ×2 (08:02→20:05)
[2021-03-25] MEDS: METHADONE HCL 10 MG TABLET NG SCH ×2 (08:02→20:04)
[2021-03-25] MEDS: ERGOCALCIFEROL 50,000 UNIT CAPSULE PO SCH (08:04)
[2021-03-25] MEDS: Z GUARD REMEDY PASTE 57 GM TUBE TOP SCH ×2 (08:06→20:06)
[2021-03-25] MEDS: VANCOMYCIN FOR PO/GT/NG USE NG SCH (08:09)
[2021-03-25] MEDS: SILODOSIN 4MG CAPSULE NG SCH (08:25)
[2021-03-25] MEDS ORDERED: DEXTROSE 50% 50 ML DISP.SYRIN IV PRN (08:45)
[2021-03-25] MEDS: GLUCERNA 1.2 1000ML LIQUID NG PRN (09:14)
[2021-03-25] MEDS: PROPOFOL 100 ML IV PRN ×2 (11:18→22:04)
[2021-03-25] MEDS: INSULIN REGULAR, HUMAN 300 UNIT/3 ML VIAL SQ PRN ×3 (11:43→23:42)
--- NOTE | 2021-03-25 13:50 | NUR ---
WOUND CARE CONSULT: PT PRESENTS WITH SACRAL SCARRING, PRESENT ON ADMISSION. RECOMMENDATIONS MADE FOR SKIN PROTECTION. DISCUSSED WITH NURSING STAFF. PT IS ON FIRST STEP KRISSY ZAPATA MD IN AGREEMENT WITH PLAN OF CARE. Addendum: 03/25/21 at 1351 by GARRISON ALARCON RN Amended: Links added.
[2021-03-25] MEDS: SOD FERRIC GLUC COMPLX/SUCROSE 125 MG in IV NORMAL SALINE 100 ML IV SCH (14:36)
[2021-03-25] MEDS: METRONIDAZOLE 500 MG/NS 100ML 500 MG in PREMIXED 1 EACH IV SCH ×2 (14:36→21:34)
[2021-03-25] MEDS ORDERED: CEFTRIAXONE 1 G VIAL IM SCH ×2 (15:00→16:30)
[2021-03-25] MEDS: FENTANYL CITRATE/PF 1,000 MCG in IV NORMAL SALINE 80 ML IV PRN (15:30)
--- NOTE | 2021-03-25 15:50 | NUR ---
SW Consult: SW was requested for consult. Per RN in CCU, family is still unsure of what the appropriate treatment would be. Family is considering hospice care and case management will coordinate appropriate discharge planning for family.
--- NOTE | 2021-03-25 15:54 | NUR ---
Case Management: SW contacted [facility] management ([phone]) to contact family in regards to discharge plan.
[2021-03-25] MEDS ORDERED: NEUTRA PHOS PACKET PO ONE (16:00)
[2021-03-25] MEDS: NOREPINEPHRINE BITARTRATE 8 MG in IV NORMAL SALINE 242 ML IV PRN (16:36)
[2021-03-25] MEDS: CEFTRIAXONE 1 G in IV DEXTROSE 5% 50 ML IV SCH (17:07)
[2021-03-25] MEDS: ATORVASTATIN 10 MG TABLET NG SCH (20:06)
[2021-03-26] VITALS (23 sets, daily range): BP systolic 102–136; BP diastolic 43–73
--- NOTE | 2021-03-26 00:17 | NUR ---
PATIENT ON CONT VEGA VENT WITH 7.5 ET//TUBE IN PLACE 21 LIP , MOVE ANCHOR FAST Q2 HOURS ; PT WITH CURRENT VENT SETTINGS, A/C 20, 450ML, PEEP5, 40%, PT WITH MOSTLY CONTROLLED VENTILATION, SUCTION LIGHT PALE YELL TINGE SECRETIONS, AND SUCTION MOUTH WITH YANKAUER TOLL WELL, NO VENT CHANGES MADE, ALL VENT ALARMS GOOD,SAT 98% APPROX, VENT PLUGGED INTO RED WALL OUT . Ritika CARROLLP Addendum: 03/26/21 at 0020 by OLIVIER BEST Amended: Links added. Addendum: 03/26/21 at 0122 by OLIVIER BEST CORRECTION PATIENT ON CON PB 840 VENT . Ritika SCHULER RCP Addendum: 03/26/21 at 2048 by OLIVIER SCHULER RT CORRECTION: PATIENT ON FIO2 @ 35% JONELLE SCHULER RCP
[2021-03-26 04:56] LABS: HEMATOCRIT 28.2 % (36.7-47.1); MEAN CORPUSCULAR HEMOGLOBIN 31.6 uug (23.8-33.4); MEAN CORPUSCULAR VOLUME 95.6 fL (73.0-96.2); PLATELET COUNT (AUTO) 128 K/uL (152-348)
[2021-03-26] MEDS: METRONIDAZOLE 500 MG/NS 100ML 500 MG in PREMIXED 1 EACH IV SCH ×3 (05:08→21:44)
[2021-03-26] MEDS: HYDROCORTISONE SOD SUCCINATE 100 MG/2 ML VIAL IV SCH ×3 (05:08→21:40)
[2021-03-26 05:14] LABS: ALANINE AMINOTRANSFERASE 370 U/L (16-63); ALKALINE PHOSPHATASE 129 U/L (50-136); ASPARTATE AMINOTRANSFERASE 72 U/L (15-37); BILIRUBIN,DIRECT 0.2 mg/dL (0.0-0.2); BILIRUBIN,TOTAL 0.3 mg/dL (0.2-1.0); CARBON DIOXIDE 34 mmol/L (21-32); CHLORIDE 102 mmol/L (98-107); CREATININE 0.5 mg/dL (0.6-1.3); GLUCOSE 156 mg/dL (74-106); PHOSPHOROUS 2.8 mg/dL (2.5-4.9); POTASSIUM 3.7 mmol/L (3.5-5.1); TOTAL PROTEIN, SERUM 4.3 g/dL (6.4-8.2); TRIGLYCERIDES 113 MG/DL (30-150); UREA NITROGEN, BLOOD 20 mg/dL (7-18)
[2021-03-26] MEDS: BLOOD SUGAR DIAGNOSTIC 1 EACH STRIP VI SCH ×3 (05:30→18:56)
[2021-03-26] MEDS: INSULIN REGULAR, HUMAN 300 UNIT/3 ML VIAL SQ PRN ×2 (05:32→18:58)
[2021-03-26] MEDS: LEVOTHYROXINE SODIUM 137 MCG TABLET NG SCH (06:15)
[2021-03-26] MEDS: OCTREOTIDE ACETATE 50 MCG/1 ML ML SQ SCH ×3 (07:12→21:53)
[2021-03-26] MEDS: FLUTICASONE/VILANTEROL 1 EACH BLST.W.DEV INH SCH (07:34)
[2021-03-26] MEDS: METHADONE HCL 10 MG TABLET NG SCH ×2 (07:35→21:00)
[2021-03-26] MEDS: PANTOPRAZOLE ORAL SUSPENSION 40 MG SUSPDR.PKT NG SCH (07:37)
[2021-03-26] MEDS: DOCUSATE SODIUM 100 MG/10 ML LIQUID UDC NG SCH ×2 (07:37→21:40)
[2021-03-26] MEDS: SILODOSIN 4MG CAPSULE NG SCH (07:37)
[2021-03-26] MEDS: SERTRALINE HCL 50 MG TABLET NG SCH (07:37)
[2021-03-26] MEDS: ASPIRIN 81 MG TAB.CHEW NG SCH (07:37)
[2021-03-26] MEDS: VANCOMYCIN FOR PO/GT/NG USE NG SCH (07:38)
[2021-03-26] MEDS: LACTULOSE 20 G/30 ML LIQUID UDC NG SCH (07:38)
[2021-03-26] MEDS: Z GUARD REMEDY PASTE 57 GM TUBE TOP SCH ×2 (07:40→21:44)
[2021-03-26 08:50] LABS: ABG BASE EXCESS 10.9 mmol/L; ABG HCO3 35.4 mmol/L; ABG PCO2 47.1 mmHg (35.0-45.0); ABG PH 7.494 (7.350-7.450); ABG PO2 89.2 mmHg (75.0-100.0); ABG SITE RIGHT RADIAL; ABG TOTAL HEMOGLOBIN 9.7 G/dL (13.5-18.0); MetHb 0.1 % (0.0-1.5); O2Hb 95.5 % (94.0-97.0); VENT MODE VENT - A/C; VT, ABG 450 mL
[2021-03-26] MEDS: IV D5/ 0.9% NACL 1,000 ML IV PRN (08:59)
[2021-03-26] MEDS: GLUCERNA 1.2 1000ML LIQUID NG PRN (09:00)
[2021-03-26] MEDS: SOD FERRIC GLUC COMPLX/SUCROSE 125 MG in IV NORMAL SALINE 100 ML IV SCH (14:48)
[2021-03-26] MEDS: FENTANYL CITRATE/PF 1,000 MCG in IV NORMAL SALINE 80 ML IV PRN (15:21)
[2021-03-26] MEDS: CEFTRIAXONE 1 G in IV DEXTROSE 5% 50 ML IV SCH (17:12)
[2021-03-26] MEDS: PROPOFOL 100 ML IV PRN (18:38)
--- NOTE | 2021-03-26 21:04 | NUR ---
PATIENT ON CONT 7.5 ET/TUBE IN PLACE AND SECURED WITH ANCHOR FAST, ROTATE Q2 , CURRENT VENT SETTINGS, A/C 20 , 450ML, FIO2 @ 35% , PEEP 5, SUCTIONED LIGHT PALE YELL TINGE SECRETIONS, CHECK CUFF, NO VENT CHANGES MADE, ALL VENT ALARMS GOOD, SAT 95-97% APPROX, HR 57 APPROX, AMBU BAG AT BEDSIDE ; CHANGE BANKS AND DWAYNE CARROLLP Addendum: 03/26/21 at 2108 by OLIVIER SCHULER RT Amended: Links added. Addendum: 03/26/21 at 2112 by OLIVIER BEST CORRECTION; PATIENT ON CONT PB 840 VENT . Ritika SCHULER RCP
[2021-03-26] MEDS: ATORVASTATIN 10 MG TABLET NG SCH (21:43)
[2021-03-27] VITALS (25 sets, daily range): BP systolic 94–148; BP diastolic 40–75
[2021-03-27] MEDS: BLOOD SUGAR DIAGNOSTIC 1 EACH STRIP VI SCH ×4 (00:05→17:27)
[2021-03-27] MEDS: PROPOFOL 100 ML IV PRN ×3 (03:11→18:54)
[2021-03-27 05:18] LABS: HEMATOCRIT 27.6 % (36.7-47.1); MEAN CORPUSCULAR HEMOGLOBIN 31.3 uug (23.8-33.4); PLATELET COUNT (AUTO) 147 K/uL (152-348)
[2021-03-27] MEDS: HYDROCORTISONE SOD SUCCINATE 100 MG/2 ML VIAL IV SCH ×3 (05:19→21:42)
[2021-03-27] MEDS: METRONIDAZOLE 500 MG/NS 100ML 500 MG in PREMIXED 1 EACH IV SCH ×3 (05:21→21:43)
[2021-03-27 05:29] LABS: CARBON DIOXIDE 34 mmol/L (21-32); CHLORIDE 105 mmol/L (98-107); CREATININE 0.5 mg/dL (0.6-1.3); GLUCOSE 168 mg/dL (74-106); MAGNESIUM 1.8 mg/dL (1.8-2.4); PHOSPHOROUS 2.9 mg/dL (2.5-4.9); POTASSIUM 3.8 mmol/L (3.5-5.1); UREA NITROGEN, BLOOD 20 mg/dL (7-18)
[2021-03-27] MEDS: INSULIN REGULAR, HUMAN 300 UNIT/3 ML VIAL SQ PRN ×3 (05:46→17:29)
[2021-03-27] MEDS: LEVOTHYROXINE SODIUM 137 MCG TABLET NG SCH (05:47)
[2021-03-27] MEDS: OCTREOTIDE ACETATE 50 MCG/1 ML ML SQ SCH (06:53)
--- NOTE | 2021-03-27 07:20 | NUR ---
Pt received in bed, laying semi-Butcher's, unable to communicate.. Orally intubated, ETT 7.5, approx 21 at lip, secured in place with [place] Fast.. Continuous mechanical ventilation with vent: settings: A/C 20, Vt 450, PEEP +5, FiO2 35%, tolerating well, will continue to monitor..
[2021-03-27 08:15] LABS: ABG BASE EXCESS 9.6 mmol/L; ABG HCO3 33.7 mmol/L; ABG PCO2 43.8 mmHg (35.0-45.0); ABG PH 7.504 (7.350-7.450); ABG PO2 79.3 mmHg (75.0-100.0); ABG SITE RIGHT RADIAL; ABG TOTAL HEMOGLOBIN 9.3 G/dL (13.5-18.0); COHb 1.4 % (0.5-1.5); MetHb 0.2 % (0.0-1.5); O2Hb 94.2 % (94.0-97.0); VENT MODE VENT - A/C; VT, ABG 450 mL
[2021-03-27] MEDS: FLUTICASONE/VILANTEROL 1 EACH BLST.W.DEV INH SCH (08:24)
[2021-03-27] MEDS: METHADONE HCL 10 MG TABLET NG SCH ×2 (08:24→21:00)
[2021-03-27] MEDS: SILODOSIN 4MG CAPSULE NG SCH (08:26)
[2021-03-27] MEDS: PANTOPRAZOLE ORAL SUSPENSION 40 MG SUSPDR.PKT NG SCH (08:26)
[2021-03-27] MEDS: DOCUSATE SODIUM 100 MG/10 ML LIQUID UDC NG SCH ×2 (08:26→21:41)
[2021-03-27] MEDS: SERTRALINE HCL 50 MG TABLET NG SCH (08:26)
[2021-03-27] MEDS: ASPIRIN 81 MG TAB.CHEW NG SCH (08:26)
[2021-03-27] MEDS: Z GUARD REMEDY PASTE 57 GM TUBE TOP SCH ×2 (08:27→21:37)
[2021-03-27] MEDS: VANCOMYCIN FOR PO/GT/NG USE NG SCH (08:27)
[2021-03-27] MEDS: IV D5/ 0.9% NACL 1,000 ML IV PRN (09:27)
--- NOTE | 2021-03-27 10:05 | NUR ---
Seen by Dr Mcmahon, pulmonology. New orders received and implemented.
--- NOTE | 2021-03-27 12:42 | NUR ---
Facial grimacing, moving extremities, attempting to reach towards ET tube, and eyes opening. Fentanyl drip increased to 75 mcg/hr and propofol drip increased to 50 mcg/kg/hr. Monitored closely at bedside until proper sedation was achieved. Will continue to monitor.
--- NOTE | 2021-03-27 13:30 | NUR ---
Patient properly sedated. Titrated fentanyl down to 50 mcg/hr and propofol down to 35 mcg/kg/hr. Addendum: 03/27/21 at 1620 by BLAKE LAFLEUR RN Fentanyl titrated down to 25 mcg/h at 1345
[2021-03-27] MEDS: FENTANYL CITRATE/PF 1,000 MCG in IV NORMAL SALINE 80 ML IV PRN (15:28)
--- NOTE | 2021-03-27 16:14 | NUR ---
and daughter visiting at bedside at this time.
--- NOTE | 2021-03-27 16:57 | NUR ---
Two family members visiting at bedside.
[2021-03-27] MEDS: CEFTRIAXONE 1 G in IV DEXTROSE 5% 50 ML IV SCH (17:00)
[2021-03-27] MEDS: ATORVASTATIN 10 MG TABLET NG SCH (21:42)
--- NOTE | 2021-03-27 21:53 | NUR ---
PATIENT ON CONT PB 840 VENT , WITH 7.5 ET/TUBE IN PLACE AND SECURED, WITH CURRENT VENT SETTINGS, A/C 20 450, PEEP5, FIO2 @ 35%, PT WITH MOSTLY CONTROLLED VENTILATION, PT SEDATED, SUCTIONED WHITISH TINGE SECRETIONS, CHANGE HME, ALL VENT ALARMS GOOD, , WEANING AT 08:00 ON TRIAL CPAP 8, ABG @ 0900 ORDERED .Ritika SCHULER RCP Addendum: 03/27/21 at 2155 by OLIVIER SCHULER RT Amended: Links added.
[2021-03-28] VITALS (24 sets, daily range): BP systolic 98–149; BP diastolic 46–99
[2021-03-28] MEDS: BLOOD SUGAR DIAGNOSTIC 1 EACH STRIP VI SCH ×4 (00:08→17:18)
[2021-03-28] MEDS: PROPOFOL 100 ML IV PRN (01:06)
[2021-03-28 05:03] LABS: HEMATOCRIT 27.6 % (36.7-47.1); MEAN CORPUSCULAR HEMOGLOBIN 31.9 uug (23.8-33.4); MEAN CORPUSCULAR VOLUME 95.7 fL (73.0-96.2); PLATELET COUNT (AUTO) 141 K/uL (152-348)
[2021-03-28] MEDS: HYDROCORTISONE SOD SUCCINATE 100 MG/2 ML VIAL IV SCH ×3 (05:06→21:19)
[2021-03-28 05:07] LABS: CARBON DIOXIDE 33 mmol/L (21-32); CHLORIDE 106 mmol/L (98-107); CREATININE 0.5 mg/dL (0.6-1.3); GLUCOSE 153 mg/dL (74-106); MAGNESIUM 1.9 mg/dL (1.8-2.4); PHOSPHOROUS 2.6 mg/dL (2.5-4.9); POTASSIUM 3.8 mmol/L (3.5-5.1); TRIGLYCERIDES 67 MG/DL (30-150); UREA NITROGEN, BLOOD 25 mg/dL (7-18)
[2021-03-28] MEDS: METRONIDAZOLE 500 MG/NS 100ML 500 MG in PREMIXED 1 EACH IV SCH ×3 (05:07→21:19)
[2021-03-28] MEDS: INSULIN REGULAR, HUMAN 300 UNIT/3 ML VIAL SQ PRN (05:24)
[2021-03-28] MEDS: LEVOTHYROXINE SODIUM 137 MCG TABLET NG SCH (05:25)
[2021-03-28] MEDS: METHADONE HCL 10 MG TABLET NG SCH ×2 (08:39→20:18)
[2021-03-28] MEDS: FLUTICASONE/VILANTEROL 1 EACH BLST.W.DEV INH SCH (08:39)
[2021-03-28] MEDS: SERTRALINE HCL 50 MG TABLET NG SCH (08:40)
[2021-03-28] MEDS: ASPIRIN 81 MG TAB.CHEW NG SCH (08:40)
[2021-03-28] MEDS: DOCUSATE SODIUM 100 MG/10 ML LIQUID UDC NG SCH ×2 (08:40→20:18)
[2021-03-28] MEDS: PANTOPRAZOLE ORAL SUSPENSION 40 MG SUSPDR.PKT NG SCH (08:40)
[2021-03-28] MEDS: SILODOSIN 4MG CAPSULE NG SCH (08:40)
[2021-03-28] MEDS: VANCOMYCIN FOR PO/GT/NG USE NG SCH (08:40)
[2021-03-28] MEDS: Z GUARD REMEDY PASTE 57 GM TUBE TOP SCH ×2 (08:41→20:41)
[2021-03-28] MEDS: IV D5/ 0.9% NACL 1,000 ML IV PRN (08:49)
--- NOTE | 2021-03-28 09:11 | NUR ---
B/L wrist restraints initiated during CPAP trial. Patient actively reaching up for ET tube. Will continue to closely monitor.
[2021-03-28 09:33] LABS: ABG BASE EXCESS 8.2 mmol/L; ABG HCO3 32.3 mmol/L; ABG PCO2 42.6 mmHg (35.0-45.0); ABG PH 7.497 (7.350-7.450); ABG PO2 104.8 mmHg (75.0-100.0); ABG SITE LEFT RADIAL; ABG TOTAL HEMOGLOBIN 10.3 G/dL (13.5-18.0); CPAP,BG 0 cmH20; MetHb 0.1 % (0.0-1.5); VENT MODE VENT - CPAP0 PS8; VT, ABG 409 mL
--- NOTE | 2021-03-28 09:45 | NUR ---
Seen by Dr. Mcmahon, pulmonary. Passed weaning trial, received orders to be extubated. HISTOLOGY SUPERVISOR notified to inform family.
[2021-03-28] MEDS ORDERED: DC PROPOFOL ONCE EXTUBATED XX PRN (09:50)
--- NOTE | 2021-03-28 09:57 | NUR ---
Extubated at 0950 with respiratory therapists at bedside. OG tube removed as well. Patient awake and off sedation. Oral care done post-extubation.
--- NOTE | 2021-03-28 09:58 | NUR ---
B/L wrist restraints discontinued at this time post-extubation.
--- NOTE | 2021-03-28 10:32 | NUR ---
Oral suctioning and deep suctioning through right nare done. Large amount of red and white thick secretions suctioned. Elevated HR 130-140s, SpO2 96% on 4L NC, RR 26, BP 147/95
--- NOTE | 2021-03-28 11:08 | NUR ---
HR 160-180s and sustaining in that rate. CLINICAL BIOSTATISTICIAN notified. Order for STAT EKG received. CLINICAL BIOSTATISTICIAN spoke to Raz (son). Per son, if patient continues to deteriorate, he does not want patient to be re-intubated. However, he will speak with his sisters and get back with their decision whether to put patient on comfort measures only. Awaiting family callback.
--- NOTE | 2021-03-28 11:24 | NUR ---
EKG result relayed to Dr Glynn, cardiology, and Kj PRATHER.
--- NOTE | 2021-03-28 11:40 | NUR ---
Received messaged back from Dr Glynn. Orders and received and implemented.
[2021-03-28] MEDS ORDERED: DILTIAZEM HCL 25 MG IV IV ONE (11:45)
--- NOTE | 2021-03-28 11:50 | NUR ---
Daughter at bedside. Insisting that she is the person to contact and notify regarding patient. Showed her patient's facesheet where it states that it is her brother who is the point of contact. Daughter also has many questions regarding medication given for patient's rapid HR and asked "why are they saying he has to be intubated again?" Informed daughter of hospital protocol regarding code status as patient is a DNR status, but not DNI. Informed her that if her and the family decide for him not to be intubated again, they have to make that decision and inform us as soon as possible.
[2021-03-28] MEDS ORDERED: AMIODARONE HCL IV 150 MG in IV DEXTROSE 5% 100 ML IV ONE (12:00)
--- NOTE | 2021-03-28 12:13 | NUR ---
Daughter and son visiting at bedside at this time.
--- NOTE | 2021-03-28 13:11 | NUR ---
Amiodarone bolus initiated at 1245, amio drip started at 1300. VSS at this time.
[2021-03-28] MEDS: AMIODARONE HCL IV 450 MG in IV DEXTROSE 5% 250 ML IV PRN ×2 (13:17→23:06)
[2021-03-28] MEDS: IPRATROPIUM BROMIDE 0.5 MG/2.5 ML NEBU NEB PRN (13:49)
[2021-03-28] MEDS: ALBUTEROL SULFATE 2.5 MG/3 ML NEBU NEB PRN (13:49)
[2021-03-28] MEDS ORDERED: METRONIDAZOLE 500 MG TABLET GT SCH (14:00)
--- NOTE | 2021-03-28 15:17 | NUR ---
Daughter remains at bedside. Informed her of visitation policy and insisted to speak with director to stay overnight. Given Lakeshia's office number and notified director as well. Allowed by this functional tester typewriters to stay at bedside for now as patient appears anxious calling out her name when daughter leaves during hygiene care. Addendum: 03/28/21 at 1629 by BLAKE LAFLEUR RN Daughter left bedside around 1515.
[2021-03-28] MEDS: CEFTRIAXONE 1 G in IV DEXTROSE 5% 50 ML IV SCH (17:00)
--- NOTE | 2021-03-28 19:15 | NUR ---
RECEIVED PATIENT AWAKE , ABLE TO FOLLOW SIMPLE COMMAND , ON 3L NC , CRACKLES NOTED ON BREATH AUSCULTATIONS , SCHREIBER AND IV INTACT , ON AMIODARONE 0.5 MG . IV OF D5NS AT 50 ML . HR OF 94 . BP OF 139 /71 , RR OF 24 , SATURATING 96 % , NO FEVER NOTED
--- NOTE | 2021-03-28 20:00 | NUR ---
dr matthews is here to see patient , updates given on patient condition today
--- NOTE | 2021-03-28 20:15 | NUR ---
family members at bedside
[2021-03-28] MEDS: ATORVASTATIN 10 MG TABLET NG SCH (20:19)
--- NOTE | 2021-03-28 20:59 | NUR ---
another family members at bedside
--- NOTE | 2021-03-28 22:00 | NUR ---
ambien requested by family to be given to the patient as per patient request
[2021-03-29] VITALS (13 sets, daily range): BP systolic 133–162; BP diastolic 62–103
[2021-03-29] MEDS: BLOOD SUGAR DIAGNOSTIC 1 EACH STRIP VI SCH ×4 (00:18→18:15)
--- NOTE | 2021-03-29 02:33 | NUR ---
dr akbar was called to inform of severe pain as per requested by the patient for pain medication , waiting for call back
--- NOTE | 2021-03-29 02:48 | NUR ---
dr akbar called updated on patient's condition , received order
[2021-03-29] MEDS: HYDROCODONE/APAP 5-325MG TABLET PO PRN ×2 (02:59→21:08)
[2021-03-29 05:16] LABS: HEMATOCRIT 31.5 % (36.7-47.1); MEAN CORPUSCULAR HEMOGLOBIN 32.1 uug (23.8-33.4); MEAN CORPUSCULAR VOLUME 96.5 fL (73.0-96.2); PLATELET COUNT (AUTO) 147 K/uL (152-348)
[2021-03-29 05:23] LABS: CARBON DIOXIDE 35 mmol/L (21-32); CHLORIDE 106 mmol/L (98-107); CREATININE 0.4 mg/dL (0.6-1.3); GLUCOSE 256 mg/dL (74-106); MAGNESIUM 1.7 mg/dL (1.8-2.4); PHOSPHOROUS 2.6 mg/dL (2.5-4.9); UREA NITROGEN, BLOOD 16 mg/dL (7-18)
[2021-03-29] MEDS: METRONIDAZOLE 500 MG/NS 100ML 500 MG in PREMIXED 1 EACH IV SCH ×2 (05:23→13:44)
[2021-03-29] MEDS: HYDROCORTISONE SOD SUCCINATE 100 MG/2 ML VIAL IV SCH ×3 (05:23→21:35)
[2021-03-29] MEDS: IV D5/ 0.9% NACL 1,000 ML IV PRN (05:36)
[2021-03-29] MEDS: LEVOTHYROXINE SODIUM 137 MCG TABLET NG SCH (05:46)
[2021-03-29 05:53] LABS: POTASSIUM 2.6 mmol/L (3.5-5.1)
--- NOTE | 2021-03-29 06:10 | NUR ---
labored breathing on rest period , rr is on the 30 's , hr 111, no fever noted . complains of pain on bilateral chest , placed on 15/5 rate of 18 , fio2 of 35 % , tolerating well , amiodarone at 0.5 mg , d5 ns 50 ml , cedeno and iv intact , bs of 191
--- NOTE | 2021-03-29 06:13 | NUR ---
Pt placed on BIPAP at this time on settings of IPAP 15, EPAP 5 and FIO2-35%. Full face mask medium. Pt to be monitored through duration of shift. Pt appears to be tolerating BIPAP well at this time. BIPAP alarm parameters have been checked and remain audible.
--- NOTE | 2021-03-29 06:30 | NUR ---
dr akbar was called in for lab work this morning , waiting for call back
[2021-03-29] MEDS: INSULIN REGULAR, HUMAN 300 UNIT/3 ML VIAL SQ PRN ×2 (06:35→18:26)
--- NOTE | 2021-03-29 06:52 | NUR ---
placed the patient back on nc 3 l was refusing the bipap
[2021-03-29] MEDS: MAGNESIUM SULFATE/D5W 100 ML IV SCH ×2 (07:46→08:51)
[2021-03-29] MEDS: POTASSIUM CHLORIDE 50 ML IV SCH ×4 (07:46→10:45)
[2021-03-29 08:10] LABS: ABG BASE EXCESS 5.4 mmol/L; ABG HCO3 34.6 mmol/L; ABG PCO2 76.6 mmHg (35.0-45.0); ABG PH 7.273 (7.350-7.450); ABG PO2 83.8 mmHg (75.0-100.0); ABG SITE LEFT RADIAL; ABG TOTAL HEMOGLOBIN 12.7 G/dL (13.5-18.0); COHb 1.8 % (0.5-1.5); MetHb 0.2 % (0.0-1.5); O2Hb 92.5 % (94.0-97.0); VENT MODE Nasal Cannula
--- NOTE | 2021-03-29 08:21 | NUR ---
PLACED ON PRN BIPAP ORDERED DUE TO ABG RESULTS. CO2 CRITICALLY ELEVATED. MINIMAL LEAKAGE NOTED ON BIPAP. WILL CONTINUE TO MONITOR.
[2021-03-29] MEDS: DOCUSATE SODIUM 100 MG/10 ML LIQUID UDC NG SCH ×2 (08:37→21:04)
[2021-03-29] MEDS: METHADONE HCL 10 MG TABLET NG SCH ×2 (08:37→21:08)
[2021-03-29] MEDS: ASPIRIN 81 MG TAB.CHEW NG SCH (08:37)
[2021-03-29] MEDS: SILODOSIN 4MG CAPSULE NG SCH (08:38)
[2021-03-29] MEDS: VANCOMYCIN FOR PO/GT/NG USE NG SCH (08:38)
[2021-03-29] MEDS: SERTRALINE HCL 50 MG TABLET NG SCH (08:38)
--- NOTE | 2021-03-29 09:11 | NUR ---
Dr. Whitt in unit to assess patient. Dr. Whitt spoke with patients daughter (Antonia) and she decided to make patient DNI/DNR.
[2021-03-29] MEDS: FLUTICASONE/VILANTEROL 1 EACH BLST.W.DEV INH SCH (10:15)
[2021-03-29] MEDS: Z GUARD REMEDY PASTE 57 GM TUBE TOP SCH ×2 (10:19→21:35)
[2021-03-29] MEDS: PANTOPRAZOLE SODIUM 40 MG VIAL IV SCH (10:25)
--- NOTE | 2021-03-29 10:47 | NUR ---
Dr. Mcmahon in unit to assess patient
--- NOTE | 2021-03-29 11:00 | NUR ---
PT TAKEN OFF BIPAP PER PT'S FAMILY REQUEST. PT IS AWAKE, ALERT, AND RESPONSIVE WITH FAMILY. WILL CONTINUE TO MONITOR.
[2021-03-29] MEDS: IPRATROPIUM BROMIDE 0.5 MG/2.5 ML NEBU NEB PRN (12:01)
[2021-03-29] MEDS: ALBUTEROL SULFATE 2.5 MG/3 ML NEBU NEB PRN (12:01)
[2021-03-29] MEDS: GLUCERNA 1.2 1000ML LIQUID NG PRN (13:36)
[2021-03-29] MEDS: MORPHINE SULFATE 2 MG/1 ML DISP.SYRIN IV PRN (14:46)
[2021-03-29] MEDS: AMIODARONE HCL IV 450 MG in IV DEXTROSE 5% 250 ML IV PRN (15:13)
--- NOTE | 2021-03-29 18:39 | NUR ---
Patient restless but able to make needs known non-verbally. Family at bedside sporadically. Gag + cough reflex present. PERRLA. Afib albeit more controlled now. Amiodarone running at 0.5mg/hr despite it being past its 24 hour layla per orders from Dr. Glynn. Afebrile. BPs stable w/o the need for pressor support. Saturations >90% on 2L NC. Orders to keep saturations between 88-92% from Dr. Mcmahon. Large amounts of secretions suctioned at start of shift - but have now lessened as of this note. GI/: No bm (feeding initiated at 1400). 1.5L clear tea colored urine. IVF dc'd.
--- NOTE | 2021-03-29 19:15 | NUR ---
received patient awake , able to follow simple command, on nc 2l , gt ngt glucerna at 30 ml , no residual noted , placement checked and verified , amiodarone 0.5 mg running , picc line intact ang , cedeno draining , labored breathing on exertion , afib 112 hr , rr 24 , 93 oxygen saturation , no fever sbp 146/ 107 ,productive cough with yellow sputum ,
--- NOTE | 2021-03-29 20:30 | NUR ---
several family members of the family in and out to visit
--- NOTE | 2021-03-29 20:45 | NUR ---
shows signs of retching with tube feeding and water flushes , feeding was decreased from 30 ml to 20 ml , continue monitoring
[2021-03-29] MEDS: ATORVASTATIN 10 MG TABLET NG SCH (21:04)
--- NOTE | 2021-03-29 21:30 | NUR ---
dr brown was informed , patient has signs of wanting to vomit while in feeding , and noted thick secretions when suctioned , requested iv fluid , if feeding unable to tolerate , no orders received
--- NOTE | 2021-03-29 21:34 | NUR ---
dr matthews is at [facility] talked to the family members
[2021-03-30] VITALS (11 sets, daily range): BP systolic 115–151; BP diastolic 37–107
--- NOTE | 2021-03-30 | NUR ---
tolerates feeding at 20 ml , no vomiting or residual noted
[2021-03-30] MEDS: BLOOD SUGAR DIAGNOSTIC 1 EACH STRIP VI SCH ×4 (01:45→17:20)
[2021-03-30] MEDS: INSULIN REGULAR, HUMAN 300 UNIT/3 ML VIAL SQ PRN ×3 (01:47→12:22)
[2021-03-30] MEDS: AMIODARONE HCL IV 450 MG in IV DEXTROSE 5% 250 ML IV PRN ×2 (02:42→18:22)
--- NOTE | 2021-03-30 03:00 | NUR ---
patient pulled out his ngt
[2021-03-30] MEDS: MORPHINE SULFATE 2 MG/1 ML DISP.SYRIN IV PRN ×2 (04:47→12:24)
--- NOTE | 2021-03-30 05:15 | NUR ---
patient pulled ngt
[2021-03-30] MEDS: HYDROCORTISONE SOD SUCCINATE 100 MG/2 ML VIAL IV SCH ×2 (05:25→14:03)
[2021-03-30 05:42] LABS: HEMATOCRIT 33.8 % (36.7-47.1); MEAN CORPUSCULAR HEMOGLOBIN 32.2 uug (23.8-33.4); MEAN CORPUSCULAR VOLUME 96.9 fL (73.0-96.2); PLATELET COUNT (AUTO) 160 K/uL (152-348)
[2021-03-30 05:46] LABS: ABG BASE EXCESS 9.6 mmol/L; ABG HCO3 37.5 mmol/L; ABG PCO2 68.9 mmHg (35.0-45.0); ABG PH 7.354 (7.350-7.450); ABG PO2 79.9 mmHg (75.0-100.0); ABG SITE RIGHT RADIAL; ABG TOTAL HEMOGLOBIN 12.2 G/dL (13.5-18.0); COHb 1.4 % (0.5-1.5); MetHb 0.1 % (0.0-1.5); O2Hb 93.6 % (94.0-97.0); VENT MODE Nasal Cannula
[2021-03-30 05:56] LABS: CARBON DIOXIDE 39 mmol/L (21-32); CHLORIDE 103 mmol/L (98-107); CREATININE 0.4 mg/dL (0.6-1.3); GLUCOSE 153 mg/dL (74-106); PHOSPHOROUS 2.2 mg/dL (2.5-4.9); POTASSIUM 3.1 mmol/L (3.5-5.1); UREA NITROGEN, BLOOD 17 mg/dL (7-18)
--- NOTE | 2021-03-30 06:26 | NUR ---
dr lujan is here updated on patient's condition , patient pulling ngt
--- NOTE | 2021-03-30 06:50 | NUR ---
bs 132 , not coverage no ngt access
[2021-03-30] MEDS: LEVOTHYROXINE SODIUM 137 MCG TABLET NG SCH (07:00)
[2021-03-30] MEDS: ASPIRIN 81 MG TAB.CHEW NG SCH (07:57)
[2021-03-30] MEDS: METHADONE HCL 10 MG TABLET NG SCH ×2 (07:58→21:00)
[2021-03-30] MEDS: SILODOSIN 4MG CAPSULE NG SCH (07:59)
[2021-03-30] MEDS: VANCOMYCIN FOR PO/GT/NG USE NG SCH (07:59)
[2021-03-30] MEDS: SERTRALINE HCL 50 MG TABLET NG SCH (08:00)
[2021-03-30] MEDS: DOCUSATE SODIUM 100 MG/10 ML LIQUID UDC NG SCH ×2 (08:12→21:00)
[2021-03-30] MEDS: PANTOPRAZOLE SODIUM 40 MG VIAL IV SCH (08:13)
[2021-03-30] MEDS: POTASSIUM CHLORIDE 40 MEQ in IV D5W 1000ML 1,000 ML IV PRN (08:13)
[2021-03-30] MEDS: Z GUARD REMEDY PASTE 57 GM TUBE TOP SCH (08:15)
[2021-03-30] MEDS: FLUTICASONE/VILANTEROL 1 EACH BLST.W.DEV INH SCH (08:15)
[2021-03-30] MEDS ORDERED: POTASSIUM CHLORIDE 50 ML IV SCH (09:00)
--- NOTE | 2021-03-30 10:00 | NUR ---
daughter primary decision maker for dad spoke to dr. tyson extensively regarding prognosis and different options of care.
--- NOTE | 2021-03-30 10:47 | NUR ---
scott brown at this time and informed him that the family has spoken to the dad and decided to do GT placement as soon as possible so he can go home. today if possible per family.
--- NOTE | 2021-03-30 10:49 | NUR ---
Late note: On 03/23/21, Patient was NPO and Methadone 10mg not given. Methadone 10mg was returned to pharmacy.
[2021-03-30] MEDS ORDERED: LEVOTHYROXINE SODIUM 200 MCG VIAL IVP SCH (13:00)
[2021-03-30 14:20] LABS: *IMMUNOFIXATION RESULT ABNORMAL; *IMMUNOGLOBULIN G, SERUM 776; IMMUNOGLOBULIN A, SERUM 498; IMMUNOGLOBULIN M, SERUM 39
[2021-03-30 14:21] LABS: A/G RATIO 0.9; ALBUMIN 2.4; ALPHA-1-GLOBULIN 0.3; ALPHA-2-GLOBULIN 0.6; BETA GLOBULIN 0.8; GAMMA GLOBULIN 0.8; GLOBULIN, TOTAL 2.6; M-SPIKE NOT OBSERVED
[2021-03-30] MEDS ORDERED: LEVOTHYROXINE SODIUM 200 MCG VIAL IVP ONE (14:30)
--- NOTE | 2021-03-30 16:07 | NUR ---
left message with to Dr. Martinez office that daughter of patient wants to be informed of procedure so that she can sign consent. Left name and Daughters number to call her.
[2021-03-30] MEDS ORDERED: POTASSIUM PHOSPHATE MM 15 MMOL in IV NORMAL SALINE 250 ML IV ONE (17:00)
--- NOTE | 2021-03-30 19:30 | NUR ---
Report received. Patient awake, but with generalized weakness, speaks Farsi only. O2 2L NC respirations shallow, O2 sat 94-98%. Daughters at bedside. Patient able to cough up thick daley secretions. With LILLIAM PICC line. On continuous Amiodarone drip at 0.5 mg/min. automotive sales executive: Afib rate 100's-120's.
--- NOTE | 2021-03-30 20:15 | NUR ---
Dr. Kahn here. Spoke to files supervisor Leigha re: PEG insertion tonight. Also spoke to patient's daughter. Procedure is cancelled for now.
--- NOTE | 2021-03-30 20:30 | NUR ---
Dipika Arroyo SCORER HELPER notified that PEG insertion is cancelled and patient has due meds. NO NGT as per SCORER HELPER as patient is high risk for aspiration and patient had pulled it out several times. Patient's daughter Antonia informed of plan of care. Awaiting for PEG insertion schedule.
[2021-03-30] MEDS: ATORVASTATIN 10 MG TABLET NG SCH (21:00)
--- NOTE | 2021-03-30 21:00 | NUR ---
Received a call from Alisha from surgery. Spoke to [employer] Fscm Developer Leigha. New PEG insertion schedule is 0500 03/31/21. sole skiver Miriam informed. This RN spoke to patient's daughter re: rescheduled PEG insertion.
--- NOTE | 2021-03-30 21:30 | NUR ---
Received a call from Dr. Valente anesthesiologist. Plan of care discussed including intubation during procedure and patient to stay intubated after. Dipika Arroyo notified. Patient's daughter informed of Dr. Valente's plan of care.
--- NOTE | 2021-03-30 21:45 | NUR ---
Dipika Arroyo spoke with patient's daughter. Consent for PEG insertion signed by daughter Antonia, agreed with intubation as discussed.
--- NOTE | 2021-03-30 22:30 | NUR ---
Patient tachypneic with shallow respirations. Saturations 83-85%. O2 changed to 10 L mask. RT called; spoke to Cong. Patient monitored closely. Dipika Arroyo updated of patient's condition. No new orders. Patient is DNR/DNI.
--- NOTE | 2021-03-30 23:00 | NUR ---
Cong RT at bedside. O2 changed to 100% non rebreather mask; sats improved to 95%. On continuous pulse ox. Daughter Antonia notified of patient's condition. Will come. Nursing transmission supervisor also notified.
--- NOTE | 2021-03-30 23:15 | NUR ---
Patient's daughter Antonia at bedside. Advised of patient's condition appropriately.
[2021-03-31] VITALS (61 sets, daily range): BP systolic 59–158; BP diastolic 43–100
--- NOTE | 2021-03-31 | NUR ---
Patient's daughter refused accu check due at midnight despite explanation. Very angry and accusatory; advised and reoriented of patient's condition. Emotional support offered. Patient remains lethargic, opens eyes to voice. BP stable. Remains Afib on Tele monitor, rate 100's.
--- NOTE | 2021-03-31 01:45 | NUR ---
Patient's daughter Antonia remains at bedside, now agreed to Accu [id number].
--- NOTE | 2021-03-31 04:00 | NUR ---
Condition unchanged. BPs stable. Monitor: Afib rate 100's-120's. Respirations still shallow, labored. O2 saturations maintaining 94% and above. Am labs drawn.
[2021-03-31] MEDS: AMIODARONE HCL IV 450 MG in IV DEXTROSE 5% 250 ML IV PRN (04:28)
[2021-03-31 04:34] LABS: CHLORIDE 105 mmol/L (98-107); CREATININE 0.5 mg/dL (0.6-1.3); GLUCOSE 176 mg/dL (74-106); UREA NITROGEN, BLOOD 25 mg/dL (7-18)
[2021-03-31 04:50] LABS: CARBON DIOXIDE 40 mmol/L (21-32)
--- NOTE | 2021-03-31 05:00 | NUR ---
Report given to Avril BEATTY. To surgery per bed with continuous close monitoring. Remains on 100% non rebreather mask. Patient lethargic, opens eyes to name calls. Family present during transport.
[2021-03-31] MEDS ORDERED: EPHEDRINE SULFATE 50 MG/ML AMPUL IM ONE (05:56)
[2021-03-31] MEDS ORDERED: ETOMIDATE 20 MG/10 ML VIAL IV ONE (05:56)
[2021-03-31] MEDS ORDERED: PHENYLEPHRINE 10 MG/1 ML VIAL IV ONE (05:56)
[2021-03-31] MEDS ORDERED: VECURONIUM BROMIDE 10 MG VIAL IV ONE (05:56)
[2021-03-31] MEDS ORDERED: SUCCINYLCHOLINE CHLORIDE 200 MG/10 ML VIAL IV ONE (05:56)
[2021-03-31] MEDS: BLOOD SUGAR DIAGNOSTIC 1 EACH STRIP VI SCH ×4 (06:00→18:30)
[2021-03-31] MEDS ORDERED: ROCURONIUM BROMIDE 50 MG/5 ML VIAL ONE (06:16)
[2021-03-31] MEDS: IPRATROPIUM BROMIDE 0.5 MG/2.5 ML NEBU NEB PRN (06:17)
[2021-03-31] MEDS: ALBUTEROL SULFATE 2.5 MG/3 ML NEBU NEB PRN (06:18)
[2021-03-31] MEDS ORDERED: ALBUTEROL SULFATE 2.5 MG/3 ML NEBU ONE (06:21)
[2021-03-31] MEDS ORDERED: IPRATROPIUM BROMIDE 0.5 MG/2.5 ML NEBU ONE (06:21)
--- NOTE | 2021-03-31 07:26 | NUR ---
Received report from PACU JACI Warren. Patient came in from per bed with transport monitor on without any incident, ET in place size 8, 22 at lip level, attached to [facility] vent with settings of TV 600, RR 16, FiO2 100%, PEEP 6, GT in place and intact, cedeno catheter draining well to gravity, checked IV sites patent and flushed, with IV lines running Amiodarone, Levophed 0.3mcg/kgm/min, K Phos, D5W + 40mEq KCl. Patient is still sedated from anesthesia, body assessment done with no skin issues, bed at lowest position, brakes on, siderails up, call light within reach, frequent rounding for safety/needs, will continue to monitor.
[2021-03-31] MEDS: PROPOFOL 100 ML IV PRN ×2 (07:55→18:25)
[2021-03-31] MEDS: HYDROCORTISONE SOD SUCCINATE 100 MG/2 ML VIAL IV SCH ×4 (07:56→22:06)
[2021-03-31] MEDS: POTASSIUM CHLORIDE 40 MEQ in IV D5W 1000ML 1,000 ML IV PRN (07:56)
[2021-03-31] MEDS: INSULIN REGULAR, HUMAN 300 UNIT/3 ML VIAL SQ PRN ×3 (08:24→18:36)
[2021-03-31] MEDS: FLUTICASONE/VILANTEROL 1 EACH BLST.W.DEV INH SCH (08:26)
[2021-03-31] MEDS: PANTOPRAZOLE SODIUM 40 MG VIAL IV SCH (08:28)
[2021-03-31] MEDS: AMIODARONE HCL 200 MG TABLET PO SCH ×2 (08:29→20:46)
[2021-03-31] MEDS: DOCUSATE SODIUM 100 MG/10 ML LIQUID UDC NG SCH ×2 (08:29→20:46)
[2021-03-31] MEDS: METHADONE HCL 10 MG TABLET NG SCH ×2 (08:29→20:46)
[2021-03-31] MEDS: SERTRALINE HCL 50 MG TABLET NG SCH (08:29)
[2021-03-31] MEDS: ASPIRIN 81 MG TAB.CHEW NG SCH (08:29)
[2021-03-31] MEDS: SILODOSIN 4MG CAPSULE NG SCH (08:30)
[2021-03-31] MEDS: Z GUARD REMEDY PASTE 57 GM TUBE TOP SCH ×3 (08:31→20:48)
--- NOTE | 2021-03-31 09:41 | NUR ---
Pt received in bed, laying semi-Butcher's, unable to communicate.. Orally intubated, ETT 7.5, approx 21 at lip, secured in place with [place] Fast.. Continuous mechanical ventilation with vent: settings: A/C 16, Vt 600, PEEP +6, FiO2 100%, tolerating well, will continue to monitor.. Addendum: 03/31/21 at 0944 by GISEL PINTO RT Amended: Links added.
[2021-03-31] MEDS ORDERED: LEVOTHYROXINE SODIUM 100 MCG VIAL IV SCH (10:00)
[2021-03-31] MEDS ORDERED: ACETYLCYSTEINE 10% 4ML VIAL NEB SCH (11:00)
[2021-03-31] MEDS: LEVALBUTEROL HCL NEB 0.63 MG/3 ML NEBU NEB SCH ×3 (11:23→19:43)
[2021-03-31] MEDS: ACETYLCYSTEINE 10% 4ML VIAL NEB SCH ×3 (11:23→19:43)
[2021-03-31] MEDS: LEVOTHYROXINE SODIUM 137 MCG TABLET GT SCH (12:07)
[2021-03-31] MEDS: VANCOMYCIN FOR PO/GT/NG USE NG SCH (12:07)
[2021-03-31] MEDS: ACETAMINOPHEN 650 MG/20.3 ML LIQUID UDC NG PRN (12:22)
[2021-03-31] MEDS: NOREPINEPHRINE BITARTRATE 8 MG in IV NORMAL SALINE 242 ML IV PRN (12:43)
[2021-03-31] MEDS: CEFEPIME HCL 2 G in IV DEXTROSE 5% 100 ML IV SCH ×2 (14:54→22:06)
[2021-03-31] MEDS: METRONIDAZOLE 500 MG/NS 100ML 500 MG in PREMIXED 1 EACH IV SCH ×2 (14:54→23:00)
[2021-03-31] MEDS ORDERED: METRONIDAZOLE 500 MG/NS 100ML 500 MG in PREMIXED 1 EACH IV SCH (15:00)
[2021-03-31 15:22] LABS: *BLOOD, URINE 3+ (NEGATIVE); *CLARITY,URINE SLIGHTLY CLOUDY (CLEAR); *COLOR,URINE AMBER (YELLOW); *KETONES,URINE NEGATIVE (NEGATIVE); *UROBILINOGEN,URINE 0.2 E.U./dl (NORMAL); LEUKOCYTE ESTERASE ,URINE NEGATIVE (NEGATIVE); NITRITE, URINE NEGATIVE (NEGATIVE); PH,URINE 6.5 (5.0-8.0); UGLUCOSE NEGATIVE (NEGATIVE)
[2021-03-31 15:26] LABS: *BILIRUBIN,URIN 1+ (NEGATIVE)
[2021-03-31 15:38] LABS: RBC,URINE TNTC /HPF (0-3)
[2021-03-31 15:39] LABS: BACTERIA,URINE FEW /HPF (NONE SEEN); SQUAMOUS EPITHELIAL CELL,UR FEW /HPF (NONE SEEN); URINE AMORPHOUS URATE MODERATE /HPF
--- NOTE | 2021-03-31 15:56 | NUR ---
Contacted Dr. Whitt in regards to critical lab results. No orders received and will review patient's chart independently.
--- NOTE | 2021-03-31 15:57 | NUR ---
Dr. Glynn notified regarding Afib. Awaiting for orders.
--- NOTE | 2021-03-31 16:00 | NUR ---
Per Dr. Glynn, to do start amiodarone protocol.
--- NOTE | 2021-03-31 16:15 | NUR ---
Patient converted back to NSR. Informed Dr. Glynn. Per Dr. Glynn, if patient converts back to Afib, will give amiodarone drip.
[2021-03-31] MEDS ORDERED: AMIODARONE HCL IV 150 MG in IV DEXTROSE 5% 100 ML IV ONE (16:30)
[2021-03-31] MEDS ORDERED: AMIODARONE HCL IV 450 MG in IV DEXTROSE 5% 250 ML IV PRN (17:00)
[2021-03-31 18:23] LABS: HEMATOCRIT 34.8 % (36.7-47.1); MEAN CORPUSCULAR HEMOGLOBIN 32.1 uug (23.8-33.4); MEAN CORPUSCULAR VOLUME 97.2 fL (73.0-96.2); PLATELET COUNT (AUTO) 185 K/uL (152-348)
[2021-03-31 18:26] LABS: BILIRUBIN,DIRECT 0.3 mg/dL (0.0-0.2); BILIRUBIN,TOTAL 0.9 mg/dL (0.2-1.0)
--- NOTE | 2021-03-31 19:05 | NUR ---
Received patient in bed, intubated and sedated. patient is S/P EGD with G-tube placement this AM, has been intubated ever since the procedure. Patient has a size 8.0 ETT, vent settings AC 16, Vt 600, Fio2 100%, PEEP 6, currently SAT 100%. No ABG done since intubation this AM. SR on the monitor, BP supported with levophed @0.15mcg/kg/min, Temp 99.2, no signs of distress. LILLIAM PICC running Propofol @20mcg/kg/min, levophed @0.15mcg/kg/min, IVF D5 + 40Kcl @50mL/h. G-Tube secured in place, no signs of leaking, tube flushes well, currently receiving feeding Glucerna 1.2 @10mL/h with a goal rate of 65. Nicole in place draining clear pilar urine. Will be titrating levophed and FiO2 PRN during the shift.
--- NOTE | 2021-03-31 19:20 | NUR ---
Patient has an active order for Amiodarone drip due to him having bouts of A-fib RVR during the day, patient converted to SR before the day shift started the medication, and thus they didn't administer it. Medication is still active on the eMAR, I will keep it active and administer the medication if he enters A-Fib RVR again. Patient currently stable SR on the monitor.
--- NOTE | 2021-03-31 20:15 | NUR ---
Fio2 titrated down to 90%, SAT remains 100%.
[2021-03-31] MEDS: ATORVASTATIN 10 MG TABLET NG SCH (20:47)
--- NOTE | 2021-03-31 21:00 | NUR ---
FiO2 titrated to 80%. SAT remains 100%
--- NOTE | 2021-03-31 21:01 | NUR ---
PATIENT ON CONT VEGA VENT WITH 8.0 ET/TUBE IN PLACE , 23 LIP LINE, WITH ANCHOR FAST IN PLACE, WITH VENT SETTINGS, A/C 16, 600ML, PEEP6, TITRATE FIO2 100% TO 90% , 80% , SAT 100%, WILL MONITOR FIO2 AND SAT THROUGHOUT SHIFT, SUCTION VERY LIGHT PALE YELL TINGE SECRETIONS, AND SUCTION MOUTH WITH YANKAUER, NEB INLINE WITH XOPENEX, MUCOMYST, ALL VENT ALARMS GOOD, VENT PLUGGED INTO RED WALL OUTLET, AMBU BAG AT BEDSIDE. Ritika SCHULER RCP
--- NOTE | 2021-03-31 23:05 | NUR ---
FiO2 titrated to 70%. SAT remains 100%, no SOB or signs of distress.
[2021-04-01] VITALS (92 sets, daily range): BP systolic 76–133; BP diastolic 13–76
[2021-04-01] MEDS: NOREPINEPHRINE BITARTRATE 8 MG in IV NORMAL SALINE 242 ML IV PRN ×2 (00:28→17:55)
[2021-04-01] MEDS: BLOOD SUGAR DIAGNOSTIC 1 EACH STRIP VI SCH ×4 (00:32→18:05)
[2021-04-01] MEDS: INSULIN REGULAR, HUMAN 300 UNIT/3 ML VIAL SQ PRN ×4 (00:34→18:08)
--- NOTE | 2021-04-01 01:10 | NUR ---
FiO2 titrated to 60%. SAT remains 100%, no SOB or signs of distress. Patient will remain at 60% FiO2 until ABG is drawn in the AM. RT and I discussed this plan and we don't want to titrate further down without a baseline ABG to go off of. Any further adjustments to be made after ABGs are resulted in the AM.
--- NOTE | 2021-04-01 01:15 | NUR ---
23:10 - PT ON FIO2 @ 60%, TITRATED , PHILIPPE CoburnNMarlin NOTIFIED .Ritika SCHULER RCP
[2021-04-01 05:12] LABS: HEMATOCRIT 32.6 % (36.7-47.1); MEAN CORPUSCULAR HEMOGLOBIN 31.8 uug (23.8-33.4); MEAN CORPUSCULAR VOLUME 96.7 fL (73.0-96.2); PLATELET COUNT (AUTO) 144 K/uL (152-348)
[2021-04-01 05:25] LABS: ALANINE AMINOTRANSFERASE 75 U/L (16-63); ALKALINE PHOSPHATASE 138 U/L (50-136); ASPARTATE AMINOTRANSFERASE 19 U/L (15-37); BILIRUBIN,TOTAL 0.6 mg/dL (0.2-1.0); CARBON DIOXIDE 38 mmol/L (21-32); CHLORIDE 103 mmol/L (98-107); CREATININE 0.5 mg/dL (0.6-1.3); GLUCOSE 161 mg/dL (74-106); POTASSIUM 3.4 mmol/L (3.5-5.1); TOTAL PROTEIN, SERUM 4.5 g/dL (6.4-8.2); UREA NITROGEN, BLOOD 31 mg/dL (7-18)
[2021-04-01 05:43] LABS: *OCCULT BLOOD STOOL POSITIVE (NEGATIVE)
[2021-04-01 05:48] LABS: ABG BASE EXCESS 14.1 mmol/L; ABG HCO3 36.2 mmol/L; ABG PCO2 35.5 mmHg (35.0-45.0); ABG PH 7.626 (7.350-7.450); ABG PO2 90.3 mmHg (75.0-100.0); ABG SITE LEFT RADIAL; ABG TOTAL HEMOGLOBIN 11.3 G/dL (13.5-18.0); COHb 0.9 % (0.5-1.5); O2Hb 96.9 % (94.0-97.0); VENT MODE VENT - A/C; VT, ABG 600 mL
--- NOTE | 2021-04-01 06:06 | NUR ---
Spoke with Dr. Green in regard to the critical pH on the ABG. Ordered AC 10 and 400 tidal volume. All other settings to remain the same.
[2021-04-01] MEDS: HYDROCORTISONE SOD SUCCINATE 100 MG/2 ML VIAL IV SCH ×3 (06:12→21:52)
[2021-04-01] MEDS: PROPOFOL 100 ML IV PRN ×2 (06:12→11:08)
[2021-04-01] MEDS: CEFEPIME HCL 2 G in IV DEXTROSE 5% 100 ML IV SCH ×3 (06:12→21:52)
--- NOTE | 2021-04-01 06:40 | NUR ---
Patient entered uncontrolled Afib around 0630. Started amiodarone protocol.
[2021-04-01] MEDS ORDERED: LEVOTHYROXINE SODIUM 137 MCG TABLET GT SCH (07:00)
[2021-04-01] MEDS: LEVOTHYROXINE SODIUM 137 MCG TABLET GT SCH (07:03)
--- NOTE | 2021-04-01 07:10 | NUR ---
Patient remains sedated on mechanical ventilation, current vent settings AC 10, Vt 400, FiO2 60%, PEEP 6. Patient has been weaned down on levophed currently running 0.07mcg/kg/min. Tube feeding running @ 50mL/hr well tolerated, 0 residual. As noted earlier, amiodarone protocol started, currently running 1mg/min started @ 0650.
[2021-04-01] MEDS: METRONIDAZOLE 500 MG/NS 100ML 500 MG in PREMIXED 1 EACH IV SCH ×3 (07:28→22:29)
[2021-04-01] MEDS ORDERED: POTASSIUM CHLORIDE 20 MEQ POWDER PACKET GT ONE (07:30)
--- NOTE | 2021-04-01 07:45 | NUR ---
Pt received orally intubated with 8.0 ETT secured at approximately 24cm lip line on continuous mechanical ventilation. Pt is on Hdez vent with ordered settings of A/C 10, VT 400, PEEP +6, FIO2 60%. Pt tolerating vent settings well. No signs or symptoms or respiratory distress noted. ETT pulled back 4cm per MD orders. ETT is now secured at 20cm lip line, RN Jovita aware. Suctioned moderate amount of thick blood tinged secretions. Oral care done. HME changed. Vent alarm parameters checked, on and audible. Vent plugged into emergency red outlet. Bag/valve/mask at bedside. Will continue to monitor.
[2021-04-01] MEDS: LEVALBUTEROL HCL NEB 0.63 MG/3 ML NEBU NEB SCH ×3 (07:47→22:43)
[2021-04-01] MEDS: ACETYLCYSTEINE 10% 4ML VIAL NEB SCH ×3 (07:47→22:44)
--- NOTE | 2021-04-01 08:00 | NUR ---
Dr Lozano radiology called regarding ET tube to pull back 4cm. Informed RT regarding Dr. Lozano's order.
--- NOTE | 2021-04-01 08:10 | NUR ---
Per Dr. Glynn, stat EKG. Informed Dr. Glynn regarding patient's EKG. Per Dr. Glynn, d/c amiodarone.
--- NOTE | 2021-04-01 08:15 | NUR ---
RT pulled back ET tube 20cm.
[2021-04-01] MEDS: PANTOPRAZOLE SODIUM 40 MG VIAL IV SCH (08:22)
[2021-04-01] MEDS: ASPIRIN 81 MG TAB.CHEW NG SCH (08:23)
[2021-04-01] MEDS: METHADONE HCL 10 MG TABLET NG SCH (08:25)
[2021-04-01] MEDS: DOCUSATE SODIUM 100 MG/10 ML LIQUID UDC NG SCH ×2 (08:26→20:35)
[2021-04-01] MEDS: FLUTICASONE/VILANTEROL 1 EACH BLST.W.DEV INH SCH (08:27)
[2021-04-01] MEDS: SILODOSIN 4MG CAPSULE NG SCH (08:28)
[2021-04-01] MEDS: VANCOMYCIN FOR PO/GT/NG USE NG SCH (08:28)
[2021-04-01] MEDS: Z GUARD REMEDY PASTE 57 GM TUBE TOP SCH ×2 (08:29→20:36)
[2021-04-01] MEDS: ERGOCALCIFEROL 50,000 UNIT CAPSULE PO SCH (08:29)
--- NOTE | 2021-04-01 09:45 | NUR ---
Per Dr. Garber, to change Vent settings RR from 10 to 16. Orders noted and carried out.
[2021-04-01] MEDS: POTASSIUM CHLORIDE 40 MEQ in IV D5W 1000ML 1,000 ML IV PRN (11:12)
[2021-04-01] MEDS: FENTANYL CITRATE/PF 1,000 MCG in IV NORMAL SALINE 80 ML IV PRN (12:18)
[2021-04-01] MEDS: PROTEIN SUPPLEMENT (PROSTAT) 30 ML LIQUID PEG SCH (15:02)
--- NOTE | 2021-04-01 19:30 | NUR ---
Report received; care assumed. Patient S/P PEG insertion 03/31/21, orally intubated and to mechanical ventilator with settings of AC=16, FIO2=30%, PEEP=6 and TV= 400 ml. O2 saturations 92-94%. On continuous Fentanyl, Propofol and Levophed drips via LILLIAM PICC line. Patient withdraws mildly to pain but doesn't open eyes. nuclear monitoring technician: SR with PACs. Assessment completed and documented. Addendum: 04/02/21 at 0144 by MINERVA CAMPBELL RN Amended: Links added.
--- NOTE | 2021-04-01 19:30 | NUR ---
PT RECEIVED ON CONTINUOUS VENT AC 16 VT 400 PEEP 6 FIO2 30%. ETT 8.0 SECURED AT 20CM LIP LINE VIA ANCHOR FAST. BS DIMINISHED BILAT. SUCTION LAVAGE PRN. IN LINE TX GIVEN ORDERED. VENT CHECKED, ALARMS WORKING WELL. NO VENT CHANGES MADE AT THIS TIME. WILL CONTINUE TO MONITOR.
[2021-04-01] MEDS: ATORVASTATIN 10 MG TABLET NG SCH (20:35)
--- NOTE | 2021-04-01 21:00 | NUR ---
Family visited; updated of patient's condition.
[2021-04-02] VITALS (94 sets, daily range): BP systolic 11–151; BP diastolic 43–101
[2021-04-02] MEDS: BLOOD SUGAR DIAGNOSTIC 1 EACH STRIP VI SCH ×5 (00:13→23:46)
[2021-04-02] MEDS: INSULIN REGULAR, HUMAN 300 UNIT/3 ML VIAL SQ PRN ×4 (00:14→23:50)
[2021-04-02] MEDS: PROPOFOL 100 ML IV PRN ×3 (01:27→17:24)
--- NOTE | 2021-04-02 03:45 | NUR ---
Am bath given; had a moderate semi soft brown stools. Turned and repositioned. After bath telemetry monitor: Afib-flutter rate 120's-140's. SBP above 90 with Levophed drip at 0.06 mcg/kg/min. Will monitor.
--- NOTE | 2021-04-02 04:00 | NUR ---
In and out of Afib-flutter and SR. O2 sats above 92%.
[2021-04-02 05:25] LABS: HEMATOCRIT 32.5 % (36.7-47.1); MEAN CORPUSCULAR HEMOGLOBIN 32.4 uug (23.8-33.4); MEAN CORPUSCULAR VOLUME 97.1 fL (73.0-96.2); PLATELET COUNT (AUTO) 115 K/uL (152-348)
[2021-04-02] MEDS: HYDROCORTISONE SOD SUCCINATE 100 MG/2 ML VIAL IV SCH ×3 (05:29→21:22)
[2021-04-02] MEDS: PANTOPRAZOLE ORAL SUSPENSION 40 MG SUSPDR.PKT PEG SCH (05:29)
[2021-04-02] MEDS: CEFEPIME HCL 2 G in IV DEXTROSE 5% 100 ML IV SCH ×3 (05:30→21:22)
[2021-04-02 05:55] LABS: ALANINE AMINOTRANSFERASE 60 U/L (16-63); ALKALINE PHOSPHATASE 135 U/L (50-136); ASPARTATE AMINOTRANSFERASE 13 U/L (15-37); BILIRUBIN,TOTAL 0.3 mg/dL (0.2-1.0); CARBON DIOXIDE 35 mmol/L (21-32); CHLORIDE 104 mmol/L (98-107); CREATININE 0.4 mg/dL (0.6-1.3); GLUCOSE 191 mg/dL (74-106); POTASSIUM 4.7 mmol/L (3.5-5.1); TOTAL PROTEIN, SERUM 4.5 g/dL (6.4-8.2); UREA NITROGEN, BLOOD 34 mg/dL (7-18)
[2021-04-02] MEDS: LEVOTHYROXINE SODIUM 137 MCG TABLET GT SCH (06:02)
[2021-04-02] MEDS: METRONIDAZOLE 500 MG/NS 100ML 500 MG in PREMIXED 1 EACH IV SCH ×3 (06:02→22:45)
--- NOTE | 2021-04-02 06:32 | NUR ---
Remains on same vent settings. O2 saturations above 92%. cardiac monitor SR rate 70's with PACs. Current drips via LILLIAM PICC line: Levophed at 0.06 mcg/kg/min. Propofol at 25 mcg/kg/min. adequately sedation. Fentanyl 25 mcg/H. Tolerating GT feedings at 65 ml/H x 22h; off [id number]. With abdominal binder. Addendum: 04/02/21 at 0650 by MINERVA CAMPBELL RN Propofol at 25 mcg/kg/min.; adequately sedated.
[2021-04-02] MEDS: POTASSIUM CHLORIDE 40 MEQ in IV D5W 1000ML 1,000 ML IV PRN (07:23)
[2021-04-02] MEDS: LEVALBUTEROL HCL NEB 0.63 MG/3 ML NEBU NEB SCH ×3 (07:35→22:37)
[2021-04-02] MEDS: ACETYLCYSTEINE 10% 4ML VIAL NEB SCH ×3 (08:05→22:37)
[2021-04-02] MEDS: ALBUTEROL SULFATE 2.5 MG/3 ML NEBU NEB PRN (08:05)
[2021-04-02] MEDS: IPRATROPIUM BROMIDE 0.5 MG/2.5 ML NEBU NEB PRN ×2 (08:05→15:09)
[2021-04-02] MEDS ORDERED: FUROSEMIDE 40 MG/4 ML VIAL IV ONE (08:45)
[2021-04-02] MEDS: DOCUSATE SODIUM 100 MG/10 ML LIQUID UDC NG SCH ×2 (08:55→21:22)
[2021-04-02] MEDS: ASPIRIN 81 MG TAB.CHEW NG SCH (08:55)
[2021-04-02] MEDS: PROTEIN SUPPLEMENT (PROSTAT) 30 ML LIQUID PEG SCH (08:55)
[2021-04-02] MEDS: FLUTICASONE/VILANTEROL 1 EACH BLST.W.DEV INH SCH (08:56)
[2021-04-02] MEDS: SILODOSIN 4MG CAPSULE NG SCH (08:56)
[2021-04-02] MEDS: GLUCERNA 1.2 1000ML LIQUID NG PRN (08:57)
[2021-04-02] MEDS: Z GUARD REMEDY PASTE 57 GM TUBE TOP SCH ×2 (08:57→21:20)
[2021-04-02] MEDS: VANCOMYCIN FOR PO/GT/NG USE NG SCH (08:57)
--- NOTE | 2021-04-02 09:47 | NUR ---
Patient went into rapid afib, Dr. Glynn at bedside. Ordered to continue monitoring at this time as Amiodarone prolongs qtc.
--- NOTE | 2021-04-02 10:39 | NUR ---
Discussed patients continued Afib RVR with Dr. Glynn. Received orders to continue monitoring for 30 minutes and if continues give Digoxin 500mcg IV x1 and if still tachycardic at 6pm give 250mcg digoxin x1.
[2021-04-02] MEDS ORDERED: DIGOXIN 500 MCG/2 ML AMP IV ONE ×2 (11:30→16:30)
[2021-04-02] MEDS: NOREPINEPHRINE BITARTRATE 8 MG in IV NORMAL SALINE 242 ML IV PRN (11:54)
[2021-04-02] MEDS: FENTANYL CITRATE/PF 1,000 MCG in IV NORMAL SALINE 80 ML IV PRN (11:55)
--- NOTE | 2021-04-02 12:39 | NUR ---
Patient is tachycardic again at the rate of 153 bpm.
--- NOTE | 2021-04-02 16:00 | NUR ---
Notified Dr Glynn that patients rate continues to be elevated, received orders to give 250mcg of Digoxin IV.
[2021-04-02] MEDS ORDERED: NOREPINEPHRINE BITARTRATE 32 MG in IV NORMAL SALINE 218 ML IV PRN (18:15)
[2021-04-02] MEDS: ATORVASTATIN 10 MG TABLET NG SCH (21:24)
--- NOTE | 2021-04-02 21:30 | NUR ---
Heart rate converted to controlled A-FIB.
[2021-04-03] VITALS (91 sets, daily range): BP systolic 99–140; BP diastolic 48–84
[2021-04-03] MEDS: IV NORMAL SALINE 250 ML IV PRN (00:01)
[2021-04-03] MEDS: PROPOFOL 100 ML IV PRN ×4 (00:18→22:01)
[2021-04-03] MEDS: PANTOPRAZOLE ORAL SUSPENSION 40 MG SUSPDR.PKT PEG SCH (05:25)
[2021-04-03] MEDS: HYDROCORTISONE SOD SUCCINATE 100 MG/2 ML VIAL IV SCH ×3 (05:25→21:48)
[2021-04-03] MEDS: CEFEPIME HCL 2 G in IV DEXTROSE 5% 100 ML IV SCH (05:29)
[2021-04-03 05:51] LABS: HEMATOCRIT 33.9 % (36.7-47.1); MEAN CORPUSCULAR HEMOGLOBIN 32.3 uug (23.8-33.4); PLATELET COUNT (AUTO) 105 K/uL (152-348)
[2021-04-03 06:07] LABS: MAGNESIUM 2.1 mg/dL (1.8-2.4); PHOSPHOROUS 2.7 mg/dL (2.5-4.9)
[2021-04-03 06:11] LABS: ALANINE AMINOTRANSFERASE 44 U/L (16-63); ALKALINE PHOSPHATASE 140 U/L (50-136); ASPARTATE AMINOTRANSFERASE 13 U/L (15-37); BILIRUBIN,TOTAL 0.3 mg/dL (0.2-1.0); CARBON DIOXIDE 38 mmol/L (21-32); CHLORIDE 105 mmol/L (98-107); CREATININE 0.5 mg/dL (0.6-1.3); GLUCOSE 166 mg/dL (74-106); POTASSIUM 4.4 mmol/L (3.5-5.1); TOTAL PROTEIN, SERUM 4.4 g/dL (6.4-8.2); UREA NITROGEN, BLOOD 35 mg/dL (7-18)
[2021-04-03 06:22] LABS: FERRITIN 481 ng/mL (26-388)
[2021-04-03 06:41] LABS: IRON, SERUM 35 ug/dL (50-175)
[2021-04-03] MEDS: BLOOD SUGAR DIAGNOSTIC 1 EACH STRIP VI SCH ×3 (06:49→18:00)
[2021-04-03] MEDS: INSULIN REGULAR, HUMAN 300 UNIT/3 ML VIAL SQ PRN ×3 (06:50→18:02)
[2021-04-03] MEDS: METRONIDAZOLE 500 MG/NS 100ML 500 MG in PREMIXED 1 EACH IV SCH (06:53)
[2021-04-03] MEDS: LEVOTHYROXINE SODIUM 137 MCG TABLET GT SCH (07:18)
[2021-04-03] MEDS: ACETYLCYSTEINE 10% 4ML VIAL NEB SCH ×4 (07:37→22:45)
[2021-04-03] MEDS: IPRATROPIUM BROMIDE 0.5 MG/2.5 ML NEBU NEB PRN ×2 (07:37→14:51)
[2021-04-03] MEDS: LEVALBUTEROL HCL NEB 0.63 MG/3 ML NEBU NEB SCH ×4 (07:37→22:45)
[2021-04-03 07:53] LABS: ABG PCO2 55.6 mmHg (35.0-45.0); ABG PH 7.441 (7.350-7.450); ABG PO2 62.1 mmHg (75.0-100.0); ABG SITE LEFT RADIAL; ABG TOTAL HEMOGLOBIN 11.9 G/dL (13.5-18.0); COHb 1.1 % (0.5-1.5); MetHb 0.2 % (0.0-1.5); O2Hb 90.7 % (94.0-97.0); VENT MODE VENT - A/C; VT, ABG 400 mL
[2021-04-03] MEDS: GLUCERNA 1.2 1000ML LIQUID NG PRN (08:00)
[2021-04-03] MEDS: PROTEIN SUPPLEMENT (PROSTAT) 30 ML LIQUID PEG SCH (08:00)
[2021-04-03] MEDS: FLUTICASONE/VILANTEROL 1 EACH BLST.W.DEV INH SCH (08:27)
[2021-04-03] MEDS: DOCUSATE SODIUM 100 MG/10 ML LIQUID UDC NG SCH ×2 (08:29→20:34)
[2021-04-03] MEDS: VANCOMYCIN FOR PO/GT/NG USE NG SCH (08:33)
[2021-04-03] MEDS: ASPIRIN 81 MG TAB.CHEW NG SCH (08:34)
[2021-04-03] MEDS: SILODOSIN 4MG CAPSULE NG SCH (08:34)
[2021-04-03] MEDS: Z GUARD REMEDY PASTE 57 GM TUBE TOP SCH ×2 (08:35→20:34)
[2021-04-03] MEDS: DIGOXIN 125 MCG TABLET PO SCH (11:05)
[2021-04-03] MEDS: ALBUMIN HUMAN 25% 100 ML IV SCH ×2 (11:19→18:05)
[2021-04-03] MEDS: FENTANYL CITRATE/PF 1,000 MCG in IV NORMAL SALINE 80 ML IV PRN (11:48)
--- NOTE | 2021-04-03 13:00 | NUR ---
Received report from JACI Galvan. Patient continues to be on ETT to vent. a/c 16 tv 400, [id number]%, peep 6. Patient is in sinus rhythm, and is on levophed 0.12mcg/kg/min. Patient is calm and cooperative on propofol 35mcg/kg, and Fentanyl 25mcg/hr. Patient now in ER with this financial writer as 1:1. Patient tolerated transfer without incident. Air mattress is inflated, scd's on, Bed in low position, side rails upx2. Will continue to monitor.
[2021-04-03] MEDS ORDERED: HYDROCORTISONE SOD SUCCINATE 100 MG/2 ML VIAL IV ONE (13:54)
--- NOTE | 2021-04-03 16:00 | NUR ---
Patient given bed bath, noted to have a large loose stool. Patient mildly experiencing some discomfort and grimacing. Increased fentanyl.
[2021-04-03] MEDS ORDERED: NOREPINEPHRINE BITARTRATE 8 MG in IV NORMAL SALINE 242 ML IV PRN (16:15)
[2021-04-03] MEDS ORDERED: ALBUMIN HUMAN 25% 50 ML ONE ×2 (18:02)
--- NOTE | 2021-04-03 18:55 | NUR ---
Patient continues to be on ETT to vent. Sinus rhythm on the monitor. Saturation 94% with fio2 35%. Patient is on levophed 0.1 mcg/kg/min. Nicole adequately draining, patient tolerating tube feeding, Air mattress inflated, bed in low positoin, side rails upx2.
--- NOTE | 2021-04-03 19:05 | NUR ---
Received patient in bed, intubated and sedated. Patient has a size 8.0 ETT, vent settings AC 16, Vt 400, Fio2 35%, PEEP 6, currently SAT 94%. SR on the monitor, BP supported with levophed @0.1mcg/kg/min, Temp 97.6, no signs of distress. LILLIAM PICC running Propofol @35mcg/kg/min, levophed @0.1mcg/kg/min, fentanyl @25mcg/hr. G-Tube secured in place, no signs of leaking, tube flushes well, currently receiving feeding Glucerna 1.2 @65mL/h. Nicole in place draining clear pilar urine. Will be titrating levophed during the shift.
[2021-04-03] MEDS: NOREPINEPHRINE BITARTRATE 8 MG in IV NORMAL SALINE 242 ML IV PRN (20:33)
[2021-04-03] MEDS: ATORVASTATIN 10 MG TABLET NG SCH (20:34)
[2021-04-03] MEDS ORDERED: PROPOFOL 100 ML ONE (21:20)
[2021-04-04] VITALS (42 sets, daily range): BP systolic 92–138; BP diastolic 38–61
[2021-04-04] MEDS: BLOOD SUGAR DIAGNOSTIC 1 EACH STRIP VI SCH ×4 (00:24→17:26)
[2021-04-04] MEDS: INSULIN REGULAR, HUMAN 300 UNIT/3 ML VIAL SQ PRN ×3 (00:26→17:27)
[2021-04-04] MEDS: ALBUMIN HUMAN 25% 100 ML IV SCH ×2 (00:36→05:54)
[2021-04-04 04:50] LABS: CARBON DIOXIDE 39 mmol/L (21-32); CHLORIDE 105 mmol/L (98-107); CREATININE 0.4 mg/dL (0.6-1.3); GLUCOSE 104 mg/dL (74-106); POTASSIUM 4.2 mmol/L (3.5-5.1); TRIGLYCERIDES 28 MG/DL (30-150); UREA NITROGEN, BLOOD 32 mg/dL (7-18)
[2021-04-04 04:53] LABS: HEMATOCRIT 25.6 % (36.7-47.1); MEAN CORPUSCULAR HEMOGLOBIN 32.4 uug (23.8-33.4); MEAN CORPUSCULAR VOLUME 97.3 fL (73.0-96.2); PLATELET COUNT (AUTO) 79 K/uL (152-348)
[2021-04-04] MEDS: PANTOPRAZOLE ORAL SUSPENSION 40 MG SUSPDR.PKT PEG SCH (05:51)
[2021-04-04] MEDS: HYDROCORTISONE SOD SUCCINATE 100 MG/2 ML VIAL IV SCH ×3 (05:51→21:13)
[2021-04-04] MEDS: IV NORMAL SALINE 250 ML IV PRN (05:57)
[2021-04-04 06:09] LABS: ABG BASE EXCESS 11.7 mmol/L; ABG HCO3 37.4 mmol/L; ABG PCO2 56.4 mmHg (35.0-45.0); ABG PO2 59.1 mmHg (75.0-100.0); ABG SITE RIGHT RADIAL; ABG TOTAL HEMOGLOBIN 9.7 G/dL (13.5-18.0); COHb 1.2 % (0.5-1.5); MetHb 0.3 % (0.0-1.5); O2Hb 89.6 % (94.0-97.0); VENT MODE VENT - A/C; VT, ABG 400 mL
[2021-04-04] MEDS: LEVOTHYROXINE SODIUM 137 MCG TABLET GT SCH (06:09)
[2021-04-04] MEDS: PROPOFOL 100 ML IV PRN ×3 (06:34→21:17)
[2021-04-04] MEDS: ACETYLCYSTEINE 10% 4ML VIAL NEB SCH ×3 (07:10→23:48)
[2021-04-04] MEDS: LEVALBUTEROL HCL NEB 0.63 MG/3 ML NEBU NEB SCH (07:10)
--- NOTE | 2021-04-04 07:10 | NUR ---
Received pt. on Ventilator A/C 16, Tv400, FIO2 35% saturation 88-94%. Peep +6. Neuro-phelps sedated with propofol at 35mcg/kg/min and Fentanyl at 25mcg/kg/min. G-T clamped with zero residuals. Patient on sinus rhythm. cedeno to gravity. Redness to sacral area. Will continue with care plan.
--- NOTE | 2021-04-04 07:10 | NUR ---
PT REC'D ORALLY INTUBATED WITH 8.0 ETT SECURED AT APPROX 20-21 LIP-LINE, ON VEGA VENT TOLERATING SETTINGS WELL AC16 400VT PEEP+6 35%FiO2. INLINE NEB TX'S GIVEN PER MD ORDER. SXN'D MOD THICK WHITE-YELLOWISH SECRETIONS. VENT ALARMS AUDIBLE, CHECKED AND RESET, BVM AT BEDSIDE.
[2021-04-04] MEDS: DIGOXIN 125 MCG TABLET PO SCH (08:00)
[2021-04-04] MEDS: DOCUSATE SODIUM 100 MG/10 ML LIQUID UDC NG SCH ×2 (08:01→20:42)
[2021-04-04] MEDS: PROTEIN SUPPLEMENT (PROSTAT) 30 ML LIQUID PEG SCH (08:01)
[2021-04-04] MEDS: SILODOSIN 4MG CAPSULE NG SCH (08:01)
[2021-04-04] MEDS: FLUTICASONE/VILANTEROL 1 EACH BLST.W.DEV INH SCH (08:02)
[2021-04-04] MEDS: Z GUARD REMEDY PASTE 57 GM TUBE TOP SCH ×2 (08:03→21:13)
[2021-04-04] MEDS: GLUCERNA 1.2 1000ML LIQUID NG PRN (08:04)
[2021-04-04] MEDS: VANCOMYCIN FOR PO/GT/NG USE NG SCH (08:24)
--- NOTE | 2021-04-04 08:55 | NUR ---
Patient in uncontrolled A-fib sustained since 0800 this morning. Patient started to desaturated down to 87 with HR in the 130-160 on/off and is been sustained since then. FIO2 increased to 50% with saturation improvement. [place] Dr. Glynn informed. Pt's SBP within desire limits. 100/61. Addendum: 04/04/21 at 1807 by MINERVA ORELLANA RN No new orders received, will continue with care plan.
[2021-04-04] MEDS ORDERED: ASPIRIN 81 MG TAB.CHEW NG SCH (09:00)
--- NOTE | 2021-04-04 09:15 | NUR ---
Patient seen by manager relationship Dr. Glynn. report given orders to continue with care plan.
--- NOTE | 2021-04-04 10:09 | NUR ---
Patient seen by Dr. Dee pulmonary services, report given, with orders to continue with care plan received.
[2021-04-04] MEDS: FENTANYL CITRATE/PF 1,000 MCG in IV NORMAL SALINE 80 ML IV PRN (12:45)
[2021-04-04 14:23] LABS: HEMATOCRIT 24.6 % (36.7-47.1); MEAN CORPUSCULAR VOLUME 97.8 fL (73.0-96.2); PLATELET COUNT (AUTO) 75 K/uL (152-348)
[2021-04-04] MEDS: ALBUTEROL SULFATE 1.25 MG/3 ML NEBU NEB SCH ×2 (14:56→23:48)
--- NOTE | 2021-04-04 17:08 | NUR ---
Patient seen by exhaust and muffler repairer Dr. Marks. no new orders received.
--- NOTE | 2021-04-04 17:58 | NUR ---
Left pt. on Ventilator A/C 16, Tv400, FIO2 35% saturation 95%. Peep +6. Neuro-phelps adequately sedated with propofol at 40mcg/kg/min and Fentanyl at 50mcg/kg/min. Hemodynamically unstable uncontrolled A-fib on/off back to sinus and sinus jonathon lowest of 58-59. G-T with glucerna at 65cc/hr goal therapy with no residuals.During shift pt. with mushy output and left with Rectal tube. cedeno to gravity. Redness to sacral area with no complications. Despite tolerating poorly patient repositioned and no new skin issues noted. Will continue with care plan
--- NOTE | 2021-04-04 19:05 | NUR ---
Received patient in bed, intubated and sedated. Patient has a size 8.0 ETT, vent settings AC 16, Vt 400, Fio2 35%, PEEP 6, currently SAT 94%. SR on the monitor, BP stable, Levophed currently off, Temp 97.9, no signs of distress. LILLIAM PICC running Propofol @40mcg/kg/min, fentanyl @50mcg/hr. G-Tube secured in place, no signs of leaking, tube flushes well, currently receiving feeding Glucerna 1.2 @65mL/h. Nicole in place draining clear pilar urine. Flexi-seal in place draining liquid brown stool.
--- NOTE | 2021-04-04 19:28 | NUR ---
RECEIVED PATIENT ORALLY INTUBATED WITH A SIZE 8 ET TUBE. ET TUBE IS SECURED APPROX 20-21 CM LIP LINE WITH ANCHOR FAST. PATIENT IS ON THE FOLLOWING SETTINGS THAT ARE CHARTED ON THE MECHANICAL VENTILATOR NOTES. VENTILATOR IS PLUGGED IN THE RED EMERGENCY OUTLET. VENTILATOR SETTINGS CHECKED AND THEY ARE ON AND AUDIBLE. ORDERS CHECKED. SUCTIONED MODERATE AMOUNTS OF THICK YELLOW AND WHITE SECRETIONS. PATIENT IS TOLERATING CURRENT VENTILATOR SETTINGS WELL AT THIS TIME. NO SOB NOTED. WILL CONTINUE TO MONITOR.
[2021-04-04] MEDS: ATORVASTATIN 10 MG TABLET NG SCH (21:13)
[2021-04-05] VITALS (28 sets, daily range): BP systolic 93–118; BP diastolic 40–59
[2021-04-05] MEDS: BLOOD SUGAR DIAGNOSTIC 1 EACH STRIP VI SCH ×5 (00:33→23:28)
[2021-04-05] MEDS: INSULIN REGULAR, HUMAN 300 UNIT/3 ML VIAL SQ PRN ×5 (00:34→23:31)
[2021-04-05] MEDS: GLUCERNA 1.2 1000ML LIQUID NG PRN (04:06)
[2021-04-05 05:00] LABS: HEMATOCRIT 26.5 % (36.7-47.1); MEAN CORPUSCULAR HEMOGLOBIN 32.3 uug (23.8-33.4); MEAN CORPUSCULAR VOLUME 98.1 fL (73.0-96.2); PLATELET COUNT (AUTO) 85 K/uL (152-348)
[2021-04-05 05:06] LABS: CARBON DIOXIDE 37 mmol/L (21-32); CHLORIDE 105 mmol/L (98-107); CREATININE 0.4 mg/dL (0.6-1.3); GLUCOSE 154 mg/dL (74-106); POTASSIUM 4.2 mmol/L (3.5-5.1); UREA NITROGEN, BLOOD 38 mg/dL (7-18)
[2021-04-05] MEDS: PROPOFOL 100 ML IV PRN ×3 (05:20→17:28)
[2021-04-05] MEDS: PANTOPRAZOLE ORAL SUSPENSION 40 MG SUSPDR.PKT PEG SCH (05:20)
[2021-04-05] MEDS: HYDROCORTISONE SOD SUCCINATE 100 MG/2 ML VIAL IV SCH ×3 (05:20→21:27)
[2021-04-05 05:51] LABS: ABG BASE EXCESS 7.4 mmol/L; ABG HCO3 32.8 mmol/L; ABG PH 7.426 (7.350-7.450); ABG PO2 67.4 mmHg (75.0-100.0); ABG SITE LEFT RADIAL; ABG TOTAL HEMOGLOBIN 9.7 G/dL (13.5-18.0); COHb 1.1 % (0.5-1.5); MetHb 0.2 % (0.0-1.5); O2Hb 91.7 % (94.0-97.0); VENT MODE VENT - A/C; VT, ABG 400 mL
[2021-04-05] MEDS: LEVOTHYROXINE SODIUM 137 MCG TABLET GT SCH (06:37)
[2021-04-05] MEDS: ALBUTEROL SULFATE 1.25 MG/3 ML NEBU NEB SCH ×3 (07:24→23:49)
[2021-04-05] MEDS: ACETYLCYSTEINE 10% 4ML VIAL NEB SCH ×3 (07:25→23:52)
[2021-04-05] MEDS: DIGOXIN 125 MCG TABLET PO SCH (08:01)
[2021-04-05] MEDS: FLUTICASONE/VILANTEROL 1 EACH BLST.W.DEV INH SCH (08:03)
[2021-04-05] MEDS: DOCUSATE SODIUM 100 MG/10 ML LIQUID UDC NG SCH ×2 (08:03→20:30)
[2021-04-05] MEDS: SILODOSIN 4MG CAPSULE NG SCH (08:11)
[2021-04-05] MEDS: VANCOMYCIN FOR PO/GT/NG USE NG SCH (08:12)
[2021-04-05] MEDS: Z GUARD REMEDY PASTE 57 GM TUBE TOP SCH ×2 (08:15→20:17)
--- NOTE | 2021-04-05 08:15 | NUR ---
Vessel Engineer Dr. Glynn in the unit to see and examine patient, orders to continue with care plan received.
[2021-04-05] MEDS: PROTEIN SUPPLEMENT (PROSTAT) 30 ML LIQUID PEG SCH (08:34)
[2021-04-05] MEDS: NUTRISOURCE FIBER 4 GM PACKET GT SCH (08:36)
--- NOTE | 2021-04-05 08:48 | NUR ---
Pt's daughter Ms. Spain at bed side to visit pt.
--- NOTE | 2021-04-05 08:49 | NUR ---
Received pt. on ventilator: A/C16, Tv400 and 35% FIO2 Peep+6 ETT 8.0 22LL. saturation between 88-90%. no tachypnea noted. Hemodynamically stable: A-fib controlled in the 70-80's. Neuro-phelps sedated and on fentanyl running at 40mcg/kg/min and propofol 40mcg/kg/min. patient opening eyes to painful stimuli and during repositioning. G-T clumped with feeding to be restarted. Nicole to gravity. Sacral area with redness spreading Rectal tube in place and irrigated at this time due to mushy content and leaking. Will continue with care plan.
--- NOTE | 2021-04-05 10:00 | NUR ---
Pt's daughter Ms. Knight and pt's at bedside to visit pt. At this time Ms. Knight requested a call from despatch clerk contract attorney for an update on care plan. she was informed that will be notified of her request.
[2021-04-05] MEDS: FENTANYL CITRATE/PF 1,000 MCG in IV NORMAL SALINE 80 ML IV PRN (10:48)
--- NOTE | 2021-04-05 11:15 | NUR ---
Pulmonary services, Dr. Arrington in the unit to see and examine pt. report given and orders to turn off sedation on 04/06/21 at 0800 received. At this time also spoke with Ms. Knight pt's daughter and updated her of care plan.
--- NOTE | 2021-04-05 16:00 | NUR ---
Shagufta Lerner from Oncology in the unit to follow up with pt. no new orders received.
--- NOTE | 2021-04-05 16:30 | NUR ---
Patient seen by dance entertainer Dr. Marks report given and orders to increase timing for water flushes received.
[2021-04-05] MEDS: IV NORMAL SALINE 250 ML IV PRN (17:29)
--- NOTE | 2021-04-05 18:18 | NUR ---
Left pt. on ventilator: A/C16, Tv400 and 35% FIO2 Peep+6 ETT 8.0 22LL. saturation between 88-90. no tachypnea or marked desaturation during shift. Hemodynamically stable: A-fib controlled in the 70-80's. Neuro-phelps adequately sedated and on fentanyl running at 40mcg/kg/min and propofol 40mcg/kg/min. G-t to feeding at goal therapy pt. with no residuals. Rectal tube with minimal mushy out-put requiring flushing prn due to leaking. Nicole to gravity. Sacral area with redness spreading. Will continue with care plan.
--- NOTE | 2021-04-05 19:58 | NUR ---
ROUNDS MADE PATIENT IN BED ORALLY INTUBATED 8.O AT 22 LIP LINE ,AC 16/TV400/35 % PEEP OF 6,TOLERATING VENT SETTING SATURATION 94%.SUCTION VIA MOUTH ORALLY/ETT WITH THIN TO THICK MODERATE SECRETION BROWNISH /REDNESS PINK TINGED COLOR .TUBE FEEDING IN PROGRESS ON GLUCERNA 1.2 AT 65 ML/HR .FLUSHED PEG WITH WATER,PATENT .ON FENTANYL DRIP 40 MCG/HR AND PROPOFOL AT 40 MCG/KG/MIN VIA THE RIGHT UPPER ARM PICC LINE .PATIENT WHEN OFF SEDATION DOESN'T FOLLOW COMMANDS .PUPILS SLUGGISHLY REACTIVE 3CM.UPPER AND LOWER ARM SWOLLEN EDEMATOUS . F/C TO BEDS WITH YELLOWISH URINE . WILL CONTINUE TO MONITOR AND V/S DONE Q 30 MINUTES ,AFIB ON THE HEART MONITOR 75
[2021-04-05] MEDS: ATORVASTATIN 10 MG TABLET NG SCH (20:29)
--- NOTE | 2021-04-05 21:30 | NUR ---
due medication given ,crushed medication and given via peg . hob up
[2021-04-06] VITALS (33 sets, daily range): BP systolic 78–141; BP diastolic 43–80
--- NOTE | 2021-04-06 | NUR ---
afebrile temp 98.1. orally . fingerstick done blood sugar 147 follow insulin sliding scale , given 2 units of regular insulin . turned and reposition patient . offloaded back with pillows and bilateral upper and lower extremities elevated with pillows heels off bed ,scd used to bilateral legs .
--- NOTE | 2021-04-06 00:30 | NUR ---
water flushed 250 cc via the peg done with order q6 hours water flushes .
[2021-04-06] MEDS: PROPOFOL 100 ML IV PRN ×4 (01:24→17:38)
--- NOTE | 2021-04-06 01:39 | NUR ---
respiratory therapist at b/s and checked patient and checked vent settings .
--- NOTE | 2021-04-06 04:15 | NUR ---
am care done ,bath patient and changed soiled linen and gown . incontinent of stool with Flexi- seal rectal tube irrigated patent . applied Mepilex to sacral area and z guard to bilateral groin and scrotal area .
[2021-04-06 05:03] LABS: HEMATOCRIT 28.7 % (36.7-47.1); MEAN CORPUSCULAR HEMOGLOBIN 32.4 uug (23.8-33.4); MEAN CORPUSCULAR VOLUME 98.5 fL (73.0-96.2); PLATELET COUNT (AUTO) 86 K/uL (152-348)
[2021-04-06 05:07] LABS: NEUTROPHILS % (MANUAL) 0 % (42-75)
[2021-04-06] MEDS: HYDROCORTISONE SOD SUCCINATE 100 MG/2 ML VIAL IV SCH ×3 (05:08→21:06)
[2021-04-06] MEDS: PANTOPRAZOLE ORAL SUSPENSION 40 MG SUSPDR.PKT PEG SCH (05:08)
[2021-04-06] MEDS: BLOOD SUGAR DIAGNOSTIC 1 EACH STRIP VI SCH ×3 (05:10→17:38)
[2021-04-06] MEDS: INSULIN REGULAR, HUMAN 300 UNIT/3 ML VIAL SQ PRN ×2 (05:11→17:41)
[2021-04-06 05:15] LABS: ALANINE AMINOTRANSFERASE 27 U/L (16-63); ALKALINE PHOSPHATASE 119 U/L (50-136); ASPARTATE AMINOTRANSFERASE 14 U/L (15-37); BILIRUBIN,TOTAL 0.3 mg/dL (0.2-1.0); CARBON DIOXIDE 38 mmol/L (21-32); CHLORIDE 106 mmol/L (98-107); CREATININE 0.4 mg/dL (0.6-1.3); GLUCOSE 161 mg/dL (74-106); MAGNESIUM 2.2 mg/dL (1.8-2.4); PHOSPHOROUS 2.4 mg/dL (2.5-4.9); POTASSIUM 4.3 mmol/L (3.5-5.1); TOTAL PROTEIN, SERUM 4.5 g/dL (6.4-8.2); UREA NITROGEN, BLOOD 33 mg/dL (7-18)
--- NOTE | 2021-04-06 05:57 | NUR ---
PATIENT ON CONT VEGA VENT WITH 8.0 ET/TUBE SECURED ANCHOR FAST , MOVE Q2 HOURS, VENT SETTINGS, A/C 16. 400ML, PEEP6, 35%, PT DOES ASSIST AT TIMES, SUCTIONED STREAK OF BLOODY TINGE SECRETIONS, NO VENT CHANGES MADE, NEB INLINE WITH MUCOMYST AND 1.25MG ALBUTEROL, TOLL WELL , CHANGE HME, ALL VENT ALARMS GOOD, SAT APPROX 93%. Ritika SCHULER RCP Addendum: 04/06/21 at 0600 by OLIVIER SCHULER RT Amended: Links added.
[2021-04-06] MEDS: LEVOTHYROXINE SODIUM 137 MCG TABLET GT SCH (06:13)
--- NOTE | 2021-04-06 07:15 | NUR ---
Received pt. on Ventilator A/C 16, Tv400, FIO2 35% saturation 95%. Peep +6. no sob or tachypnea noted. Neuro-phelps adequately sedated with propofol at 40mcg/kg/min and Fentanyl at 40mcg/kg/min. Hemodynamically stable on sinus rhythm. G-T clamped feeding to be restarted at 0800, no residuals. rectal tube with mushy output. cedeno to gravity. Redness to sacral area with no complications. On repositing Q2H and prn. Will continue with care plan
[2021-04-06] MEDS: ALBUTEROL SULFATE 1.25 MG/3 ML NEBU NEB SCH ×3 (07:32→23:40)
[2021-04-06] MEDS: ACETYLCYSTEINE 10% 4ML VIAL NEB SCH ×3 (07:32→23:42)
[2021-04-06] MEDS: FENTANYL CITRATE/PF 1,000 MCG in IV NORMAL SALINE 80 ML IV PRN (08:14)
--- NOTE | 2021-04-06 08:15 | NUR ---
Sedation off as ordered for weaning purposes pt. tolerating with saturation of 94%.
[2021-04-06] MEDS: PROTEIN SUPPLEMENT (PROSTAT) 30 ML LIQUID PEG SCH (08:27)
[2021-04-06] MEDS: SILODOSIN 4MG CAPSULE NG SCH (08:31)
[2021-04-06] MEDS: DOCUSATE SODIUM 100 MG/10 ML LIQUID UDC NG SCH ×2 (08:31→20:03)
[2021-04-06] MEDS: FLUTICASONE/VILANTEROL 1 EACH BLST.W.DEV INH SCH (08:31)
[2021-04-06] MEDS: NUTRISOURCE FIBER 4 GM PACKET GT SCH (08:31)
[2021-04-06] MEDS: Z GUARD REMEDY PASTE 57 GM TUBE TOP SCH ×2 (08:32→20:03)
[2021-04-06] MEDS: DIGOXIN 125 MCG TABLET PO SCH (08:32)
[2021-04-06] MEDS: VANCOMYCIN FOR PO/GT/NG USE NG SCH (08:33)
--- NOTE | 2021-04-06 09:03 | NUR ---
Weaning in progress pt. Afib-uncontrolled rate in the 115-130's. sbp of 139/75. saturation of 92%. rr in the upper 20's low 30's. Addendum: 04/06/21 at 930 by MINERVA ORELLANA RN patient in sinus tachycardia in correction of the above statement.
--- NOTE | 2021-04-06 09:57 | NUR ---
A call to Dr. Garber to notify pt's current condition under weaning parameters RR in the upper 20's low 30's saturation of 90-92%. sbp of 141/65. and sinus tachy in the 120's-125's orders to continue with weaning received.
--- NOTE | 2021-04-06 10:17 | NUR ---
A call to bushler to notify Patient is currently on A-fib in the 160's sustained and orders to resume sedation received.
[2021-04-06] MEDS: GLUCERNA 1.2 1000ML LIQUID NG PRN (10:38)
[2021-04-06] MEDS: MORPHINE SULFATE 2 MG/1 ML DISP.SYRIN IV PRN (10:47)
--- NOTE | 2021-04-06 10:54 | NUR ---
Patient seen by transmission mechanic Dr. Glynn who also updated pt's daughter and who remained at bedside.
[2021-04-06] MEDS ORDERED: NEUTRA PHOS PACKET GT SCH (15:15)
--- NOTE | 2021-04-06 18:56 | NUR ---
Attending physician Zack Cowan in the unit to follow up on pt. report given orders to continue with care plan received.
--- NOTE | 2021-04-06 18:57 | NUR ---
Left pt. on Ventilator A/C 16, Tv400, FIO2 35% saturation 95%. Peep +6. no sob or tachypnea noted. After sedation resumed this morning. Neuro-phelps adequately sedated with propofol at 40mcg/kg/min and Fentanyl at 40mcg/kg/min. Hemodynamically stable on sinus rhythm. G-T clamped feeding running at 65cc/hr, no residuals. rectal tube with minimal mushy output. cedeno to gravity. Redness to sacral area with no complications. On repositing Q2H and prn. Will continue with care plan
--- NOTE | 2021-04-06 19:30 | NUR ---
received in bed DNR/DNI patient, orally intubated on ac 16/400/35%PEEP 6 tolerating vent setting saturation 90 to 92 % ,TF in progress Glucerna 1.2 at 65 ml/hr via the peg ,flushed peg patent . propofol and fentanyl drip in progress for sedation . ivf d2n/s at 50 ml/hr via the right piccline . f/c to bsd rectal tube placed ,sr on the heart monitor .
[2021-04-06] MEDS: ATORVASTATIN 10 MG TABLET NG SCH (20:03)
--- NOTE | 2021-04-06 21:00 | NUR ---
due mediation given crushed medication and given via the peg . hob up . suction patient via the ett and via mouth with moderate amt of pinkish tinged secretion .
[2021-04-07] VITALS (22 sets, daily range): BP systolic 99–132; BP diastolic 44–67
--- NOTE | 2021-04-07 | NUR ---
fingerstick done blood glucose 138 mg/dl and sliding scale insulin given, flushed peg with water 250 ml.
[2021-04-07] MEDS: BLOOD SUGAR DIAGNOSTIC 1 EACH STRIP VI SCH ×5 (00:29→23:38)
[2021-04-07] MEDS: INSULIN REGULAR, HUMAN 300 UNIT/3 ML VIAL SQ PRN ×4 (00:39→23:40)
[2021-04-07] MEDS: PROPOFOL 100 ML IV PRN ×4 (00:46→23:54)
--- NOTE | 2021-04-07 01:35 | NUR ---
turned and reposition patient ,offloaded back with pillows and bilateral upper and lower extremities up with pillow .
--- NOTE | 2021-04-07 04:15 | NUR ---
AM CARE DONE ,BATH PATH ,CHANGED SOILED LINENS AND GOWN .IRRIGATED RECTAL TUBE . MEPLIEX APPLIED TO SACRAL AREA AND Z GUARD TO BILATERAL GROIN AND SCROTAL AREA .
[2021-04-07] MEDS: HYDROCORTISONE SOD SUCCINATE 100 MG/2 ML VIAL IV SCH ×3 (05:07→21:36)
[2021-04-07] MEDS: PANTOPRAZOLE ORAL SUSPENSION 40 MG SUSPDR.PKT PEG SCH (05:07)
[2021-04-07 05:27] LABS: HEMATOCRIT 27.8 % (36.7-47.1); MEAN CORPUSCULAR HEMOGLOBIN 32.8 uug (23.8-33.4); MEAN CORPUSCULAR VOLUME 97.9 fL (73.0-96.2); PLATELET COUNT (AUTO) 85 K/uL (152-348)
[2021-04-07 05:43] LABS: CARBON DIOXIDE 38 mmol/L (21-32); CHLORIDE 106 mmol/L (98-107); CREATININE 0.4 mg/dL (0.6-1.3); GLUCOSE 146 mg/dL (74-106); MAGNESIUM 2.1 mg/dL (1.8-2.4); PHOSPHOROUS 2.7 mg/dL (2.5-4.9); POTASSIUM 4.3 mmol/L (3.5-5.1); UREA NITROGEN, BLOOD 33 mg/dL (7-18)
[2021-04-07] MEDS: LEVOTHYROXINE SODIUM 137 MCG TABLET GT SCH (06:37)
[2021-04-07] MEDS: IPRATROPIUM BROMIDE 0.5 MG/2.5 ML NEBU NEB PRN (07:17)
[2021-04-07] MEDS: ALBUTEROL SULFATE 1.25 MG/3 ML NEBU NEB SCH ×3 (07:17→23:05)
[2021-04-07] MEDS: ACETYLCYSTEINE 10% 4ML VIAL NEB SCH ×3 (07:17→23:05)
--- NOTE | 2021-04-07 07:20 | NUR ---
Pt received orally intubated with 8.0 @20 cm lip line on continuous mechanical ventilation. Pt is on Hdez vent with ordered settings of A/C 16, VT 400, PEEP +6, FIO2 35% . Pt tolerating vent settings well. In line nebulizer Txs given as ordered. Txs tolerated well without adverse reactions noted. Suctioned for small amounts of thick yellowish secretions. Vent alarm parameters checked, on and audible. HME changed. Oral care done. Vent plugged into red emergency outlet. Will continue to monitor.
--- NOTE | 2021-04-07 08:00 | NUR ---
Patient seen by wool spotter Dr. Glynn report given orders to continue with care plan received and implemented.
[2021-04-07] MEDS: NUTRISOURCE FIBER 4 GM PACKET GT SCH (08:16)
[2021-04-07] MEDS: PROTEIN SUPPLEMENT (PROSTAT) 30 ML LIQUID PEG SCH (08:17)
[2021-04-07] MEDS: DOCUSATE SODIUM 100 MG/10 ML LIQUID UDC NG SCH ×2 (08:17→20:51)
[2021-04-07] MEDS: SILODOSIN 4MG CAPSULE NG SCH (08:21)
[2021-04-07] MEDS: VANCOMYCIN FOR PO/GT/NG USE NG SCH (08:21)
[2021-04-07] MEDS: FLUTICASONE/VILANTEROL 1 EACH BLST.W.DEV INH SCH (08:23)
[2021-04-07] MEDS: DIGOXIN 125 MCG TABLET PO SCH (08:23)
[2021-04-07] MEDS: Z GUARD REMEDY PASTE 57 GM TUBE TOP SCH ×2 (08:23→20:51)
--- NOTE | 2021-04-07 08:52 | NUR ---
Received pt. on Ventilator A/C 16, Tv400, FIO2 35% saturation 95%. Peep +6. no sob, tachypnea or any other distress noted. Neuro-phelps adequately sedated with propofol at 40mcg/kg/min and Fentanyl at 40mcg/kg/min. Hemodynamically stable on sinus rhythm. G-T clamped feeding to be restarted at 0800, no residuals. rectal tube with mushy output. cedeno to gravity. Redness to sacral area with no complications. On repositioning Q2H and prn. Will continue with care plan.
[2021-04-07] MEDS: IV NORMAL SALINE 250 ML IV PRN (09:01)
[2021-04-07] MEDS: GLUCERNA 1.2 1000ML LIQUID NG PRN (09:58)
--- NOTE | 2021-04-07 11:45 | NUR ---
With blasting clay miner in the unit orders to turn off sedation received and implemented.
--- NOTE | 2021-04-07 12:17 | NUR ---
Pulmonary serviced, Dr. Garber in the unit and orders to stopped sedation received with him in the unit and Pt's daughter Ms. Drummond at bedside. Addendum: 04/07/21 at 1233 by MINERVA ORELLANA RN order if pt tolerates been off sedation can proceed and put pt. on cpap PS 10-12. otherwise.back on previous setting and on sedation.
--- NOTE | 2021-04-07 13:00 | NUR ---
Patient off sedation awake but unable to follow commands RR in the high 20's mid 30's pt. noted to be using accessory muscles to breath heart rate sinus between 110-130's. SBP of 132/67. with saturation of 96. Pt's daughters at bedside.
--- NOTE | 2021-04-07 14:35 | NUR ---
A call to Dr. Garber to report of pt's condition been off sedatives since 1145 informed that pt. is awake but unable o follow commands at this time inquire if we should proceed for CPAP as order earlier. Orders to resume sedation received. Also orders to turn off sedation at 0800 on 04/07/21 received.
[2021-04-07] MEDS: FENTANYL CITRATE/PF 1,000 MCG in IV NORMAL SALINE 80 ML IV PRN ×2 (14:45→20:55)
--- NOTE | 2021-04-07 17:05 | NUR ---
Patient with an episode of desaturation down to 86-87 suctioning an pulmonary toileting render at this time with no success. RT in the unit and FIO2 increased to 45 will continue to monitor.
--- NOTE | 2021-04-07 17:43 | NUR ---
Nephrology services, Dr. Marks in the unit to see and examine pt. report given orders to continue with care plan received.
--- NOTE | 2021-04-07 18:02 | NUR ---
Left pt. on Ventilator A/C 16, Tv400, FIO2 45% saturation 92%. Peep +6. slightly tachypneic with rr in the mid 20's. Neuro-phelps adequately sedated with propofol at 40mcg/kg/min and Fentanyl at 40mcg/kg/min. Hemodynamically stable back on sinus rhythm. G-T to 65cc/hr feeding, no residuals. rectal tube with mushy output. cedeno to gravity with decreased output see I&O. Redness to sacral area with no complications. On repositioning Q2H and prn. Will continue with care plan.
[2021-04-07] MEDS: ATORVASTATIN 10 MG TABLET NG SCH (20:50)
[2021-04-08] VITALS (24 sets, daily range): BP systolic 105–163; BP diastolic 4–82
--- NOTE | 2021-04-08 03:51 | NUR ---
afib rate 149,in and out controlled afib and goes to sr . converted back to sr 0530 sr 80 .
--- NOTE | 2021-04-08 03:54 | NUR ---
am care done ,bath patient changed soiled linens and gown ,rectal tube irrigated and changed bag its full .Nicole catheter care done .
[2021-04-08] MEDS: HYDROCORTISONE SOD SUCCINATE 100 MG/2 ML VIAL IV SCH ×3 (05:16→22:13)
[2021-04-08] MEDS: PANTOPRAZOLE ORAL SUSPENSION 40 MG SUSPDR.PKT PEG SCH (05:16)
[2021-04-08 05:28] LABS: HEMATOCRIT 28.4 % (36.7-47.1); MEAN CORPUSCULAR HEMOGLOBIN 32.8 uug (23.8-33.4); MEAN CORPUSCULAR VOLUME 98.6 fL (73.0-96.2); PLATELET COUNT (AUTO) 96 K/uL (152-348)
[2021-04-08 05:40] LABS: ALANINE AMINOTRANSFERASE 32 U/L (16-63); ALKALINE PHOSPHATASE 132 U/L (50-136); ASPARTATE AMINOTRANSFERASE 20 U/L (15-37); BILIRUBIN,TOTAL 0.5 mg/dL (0.2-1.0); CARBON DIOXIDE 39 mmol/L (21-32); CHLORIDE 107 mmol/L (98-107); CREATININE 0.4 mg/dL (0.6-1.3); GLUCOSE 109 mg/dL (74-106); MAGNESIUM 2.1 mg/dL (1.8-2.4); PHOSPHOROUS 3.4 mg/dL (2.5-4.9); POTASSIUM 4.3 mmol/L (3.5-5.1); TOTAL PROTEIN, SERUM 4.4 g/dL (6.4-8.2); UREA NITROGEN, BLOOD 27 mg/dL (7-18)
[2021-04-08] MEDS: BLOOD SUGAR DIAGNOSTIC 1 EACH STRIP VI SCH ×3 (06:23→17:47)
[2021-04-08] MEDS: LEVOTHYROXINE SODIUM 137 MCG TABLET GT SCH (06:24)
--- NOTE | 2021-04-08 07:30 | NUR ---
Seen and examined by Dr. Glynn, report given, orders to continue plan of care. Noted and carried out.
[2021-04-08] MEDS: PROPOFOL 100 ML IV PRN ×3 (07:52→16:31)
[2021-04-08] MEDS: ACETYLCYSTEINE 10% 4ML VIAL NEB SCH ×3 (07:58→23:34)
[2021-04-08] MEDS: ALBUTEROL SULFATE 1.25 MG/3 ML NEBU NEB SCH ×3 (07:58→23:34)
--- NOTE | 2021-04-08 08:00 | NUR ---
Sedation turned off as ordered. 0800AM sedation vacation. Will continue to monitor.
[2021-04-08] MEDS: DOCUSATE SODIUM 100 MG/10 ML LIQUID UDC NG SCH ×2 (08:03→21:00)
[2021-04-08] MEDS: SILODOSIN 4MG CAPSULE NG SCH (08:13)
[2021-04-08] MEDS: DIGOXIN 125 MCG TABLET PO SCH (08:13)
[2021-04-08] MEDS: ERGOCALCIFEROL 50,000 UNIT CAPSULE PO SCH (08:13)
[2021-04-08] MEDS: VANCOMYCIN FOR PO/GT/NG USE NG SCH (08:14)
[2021-04-08] MEDS: PROTEIN SUPPLEMENT (PROSTAT) 30 ML LIQUID PEG SCH (08:14)
[2021-04-08] MEDS: GLUCERNA 1.2 1000ML LIQUID NG PRN (08:14)
[2021-04-08] MEDS: Z GUARD REMEDY PASTE 57 GM TUBE TOP SCH ×2 (08:15→20:28)
--- NOTE | 2021-04-08 08:15 | NUR ---
Patient started to wake up with eyes open, HR 80-90's bpm, BP= 134/58, O2=98%, RR=23. No acute distress noted. Will continue to monitor.
[2021-04-08] MEDS: NUTRISOURCE FIBER 4 GM PACKET GT SCH (08:17)
[2021-04-08] MEDS: FLUTICASONE/VILANTEROL 1 EACH BLST.W.DEV INH SCH (09:00)
--- NOTE | 2021-04-08 09:00 | NUR ---
Patient failed sedation with UF=687, AZ=678/61, O2 92% with labored breathing noted. Turned sedation back on. Will notify ranch hand livestock.
--- NOTE | 2021-04-08 09:34 | NUR ---
Contacted Dr Garber thru exchange message will report regarding patient's sedation vacation. Awaiting callback.
--- NOTE | 2021-04-08 10:20 | NUR ---
Seen and examined by Dr. Garber, report given. Dr. Garber made aware of patient's sedation vacation. No orders made. Will continue to monitor.
[2021-04-08] MEDS: INSULIN REGULAR, HUMAN 300 UNIT/3 ML VIAL SQ PRN ×2 (11:29→17:53)
--- NOTE | 2021-04-08 19:30 | NUR ---
Report received; care assumed. Patient orally intubated and to mechanical ventilator with settings of AC=16, FIO2=45%, PEEP=6 and TV= 400 ml. O2 saturations above 94%. Has failed weaning for 2 days. On continuous Fentanyl and Propofol drips via LILLIAM PICC line at 40 mcg//H and 40 mcg/kg/min respectively. Suctioned for small amounts of daley pink-tinged secretions. With weak cough reflex. phototypesetting equipment monitor: SR with rare PACs. On continuous GT feedings at 65 ml/H; no residual. HOB above 30 degrees at all times. Turned and repositioned. Skin care provided. Flexi seal in place with liquid brown stools. With marked generalized edema. Assessment completed and documented.
[2021-04-08] MEDS: ATORVASTATIN 10 MG TABLET NG SCH (20:27)
[2021-04-09] VITALS (24 sets, daily range): BP systolic 92–150; BP diastolic 44–72
[2021-04-09] MEDS: PROPOFOL 100 ML IV PRN ×4 (00:34→23:07)
[2021-04-09] MEDS: BLOOD SUGAR DIAGNOSTIC 1 EACH STRIP VI SCH ×5 (00:43→23:49)
[2021-04-09] MEDS: INSULIN REGULAR, HUMAN 300 UNIT/3 ML VIAL SQ PRN ×3 (00:45→23:50)
[2021-04-09] MEDS: FENTANYL CITRATE/PF 1,000 MCG in IV NORMAL SALINE 80 ML IV PRN (01:08)
--- NOTE | 2021-04-09 02:41 | NUR ---
PATIENT ON CONT VEGA VENT WITH 8.0 ET/TUBE IN PLACE, 20CM LIP LINE, WITH ANCHOR FAST IN PLACE AND SECURED, MOVED Q2 HOURS, WITH CURRENT VENT SETTINGS, A/C 16, 400ML, PEEP 6, FIO2 @ 45%, PT DOES ASSIST AT TIMES, SEDATED , NO VENT CHANGES MADE, SUCTIONED LIGHT TINGE PINKISH TINGE, AND BLOOD STREAK AT TIMES, SUCTION MOUTH WITH PAULINE, EHSAN WELL, NEB INLINE X 1 WITH ALBUTEROL, MUCOMYST, CHANGE HME, VENT PLUGGED INTO RED WALL OUT. Ritika CARROLLP Addendum: 04/09/21 at 0245 by OLIVIER SCHULER RT Amended: Links added.
[2021-04-09] MEDS: IV NORMAL SALINE 250 ML IV PRN (03:02)
[2021-04-09] MEDS: GLUCERNA 1.2 1000ML LIQUID NG PRN (03:07)
[2021-04-09 05:06] LABS: HEMATOCRIT 28.1 % (36.7-47.1); MEAN CORPUSCULAR HEMOGLOBIN 32.7 uug (23.8-33.4); MEAN CORPUSCULAR VOLUME 98.1 fL (73.0-96.2); PLATELET COUNT (AUTO) 85 K/uL (152-348)
[2021-04-09] MEDS: PANTOPRAZOLE ORAL SUSPENSION 40 MG SUSPDR.PKT PEG SCH (05:20)
[2021-04-09] MEDS: HYDROCORTISONE SOD SUCCINATE 100 MG/2 ML VIAL IV SCH ×3 (05:20→21:11)
[2021-04-09 05:24] LABS: CARBON DIOXIDE 39 mmol/L (21-32); CHLORIDE 106 mmol/L (98-107); CREATININE 0.3 mg/dL (0.6-1.3); GLUCOSE 159 mg/dL (74-106); MAGNESIUM 2.2 mg/dL (1.8-2.4); PHOSPHOROUS 3.1 mg/dL (2.5-4.9); POTASSIUM 4.4 mmol/L (3.5-5.1); UREA NITROGEN, BLOOD 30 mg/dL (7-18)
--- NOTE | 2021-04-09 06:46 | NUR ---
Stable on current vent settings: FIO2=45%, DQ=800 ml, PEEP 6cm and AC=16. Adequately sedated with Fentanyl and Propofol via LILLIAM PICC line. monitoring manager: SR with rare to occasional PACs. Tolerating GT feedings well at 65 ml/H x 22H; off 0600 will be resumed at 0800. Flexiseal had 100 ml liquid brown stools; irrigated PRN. Urine vvwvjn=615 ml x 12H. Addendum: 04/09/21 at 0647 by MINERVA CAMPBELL RN Amended: Links added.
[2021-04-09] MEDS: ALBUTEROL SULFATE 1.25 MG/3 ML NEBU NEB SCH ×2 (07:11→15:10)
[2021-04-09] MEDS: ACETYLCYSTEINE 10% 4ML VIAL NEB SCH ×3 (07:11→23:59)
--- NOTE | 2021-04-09 07:15 | NUR ---
Received pt. on Ventilator A/C 16, Tv400, FIO2 45% saturation 95%. Peep +6. no sob, tachypnea or any other distress noted. Neuro-phelps adequately sedated with propofol at 40mcg/kg/min and Fentanyl at 40mcg/kg/min. Hemodynamically stable on sinus rhythm rate in the 70's-80's. G-T clamped feeding to be restarted at 0800, no residuals. rectal tube with mushy output. cedeno to gravity. Redness to sacral area wide spread and dark black center picture taken. On repositioning Q2H and prn. Will continue with care plan
[2021-04-09] MEDS: LEVOTHYROXINE SODIUM 137 MCG TABLET GT SCH (07:33)
[2021-04-09] MEDS: NUTRISOURCE FIBER 4 GM PACKET GT SCH (08:06)
[2021-04-09] MEDS: PROTEIN SUPPLEMENT (PROSTAT) 30 ML LIQUID PEG SCH (08:06)
[2021-04-09] MEDS: DOCUSATE SODIUM 100 MG/10 ML LIQUID UDC NG SCH ×2 (08:07→20:57)
[2021-04-09] MEDS: SILODOSIN 4MG CAPSULE NG SCH (08:07)
[2021-04-09] MEDS: VANCOMYCIN FOR PO/GT/NG USE NG SCH (08:08)
[2021-04-09] MEDS: Z GUARD REMEDY PASTE 57 GM TUBE TOP SCH ×2 (08:09→21:12)
[2021-04-09] MEDS: DIGOXIN 125 MCG TABLET PO SCH (08:09)
[2021-04-09] MEDS: FLUTICASONE/VILANTEROL 1 EACH BLST.W.DEV INH SCH (08:10)
--- NOTE | 2021-04-09 10:00 | NUR ---
With electron beam welder setter Dr. Garber in the unit patient place on sedation vacation one more time, this time with orders to turn it off completely and wait longer to monitor pt's progress. Order to resume sedation if pt's heart rate goes above 120-130's. Pt's jason Will at bedside. Pt's current vitals oren HR of 72, sbp of 150/72, saturation of RR 20.
--- NOTE | 2021-04-09 10:44 | NUR ---
Pt with heart rate of 150-160's uncontrolled A-fib saturation of 98%, RR mid 30's sbp of 150/101 pt's daughter at bedside and at this time sedation resumed as ordered by flatwork folder. Addendum: 04/09/21 at 1125 by MINERVA ORELLANA RN rhythm is SINUS TACHYCARDIA USER ERROR ABOVE STATEMENT.
[2021-04-09] MEDS: MORPHINE SULFATE 2 MG/1 ML DISP.SYRIN IV PRN (11:28)
--- NOTE | 2021-04-09 11:54 | NUR ---
A call to Dr. Tai material control analyst and report given to him He was informed that pt. HR remains in Sinus tachycardia of 150's 160's and sedation was resumed at 1045, and dispite morphine given pt. remains unstable orders received. Addendum: 04/09/21 at 1856 by MINERVA ORELLANA RN HR of 158 sbp of 150/101. saturation of 95% RR 35.
[2021-04-09] MEDS: METOPROLOL TARTRATE 5 MG/5 ML VIAL IVP PRN (12:16)
--- NOTE | 2021-04-09 13:15 | NUR ---
patient care endorse to me at this time. Received pt. sedated, on propofol running at 30mcg/kg min. upon assessment pt. withdrawing from painful stimuli. On ventilator A/C 16, 500Tv, Peep +5, and FIO2 35% no tachypnea or resp. distress noted. saturation within normal limits above 95%. G-T to feeding running at goal therapy. Ml RUE patent. Nicole to gravity. Wounds to sacrum, Dionicio. heels. Will continue to monitor. Addendum: 04/09/21 at 1421 by MINERVA ORELLANA RN the above note is intended for another pt. user error.
--- NOTE | 2021-04-09 16:30 | NUR ---
Ammonia Solution Preparer Dr. Marks in the unit to follow up on pt. report given orders to continue with care plan received.
--- NOTE | 2021-04-09 18:45 | NUR ---
Left pt. on Ventilator A/C 16, Tv400, FIO2 45% saturation 95%. Peep +6. no sob, tachypnea or any other distress noted. Neuro-phelps adequately sedated with propofol at 40mcg/kg/min and Fentanyl at 40mcg/kg/min. Hemodynamically stable on sinus rhythm rate in the 70's-80's after cardiac distress post off sedation. G-T to feeding running at goal therapy, no residuals. rectal tube with mushy output minimal amount. cedeno to gravity. Redness to sacral area wide spread and dark black center picture taken. On repositioning Q2H and prn. Will continue with care plan.
--- NOTE | 2021-04-09 19:05 | NUR ---
Received patient in bed, intubated and sedated. Patient has a size 8.0 ETT, vent settings AC 16, Vt 400, Fio2 45%, PEEP 6, currently SAT 96%. SR on the monitor, BP stable, Levophed currently off, Temp 98.5, no signs of distress. LILLIAM PICC running Propofol @40mcg/kg/min, fentanyl @40mcg/hr. G-Tube secured in place, no signs of leaking, tube flushes well, currently receiving feeding Glucerna 1.2 @65mL/h. Nicole in place draining clear pilar urine. Flexi-seal in place draining semi-soft brown stool.
[2021-04-09] MEDS: ATORVASTATIN 10 MG TABLET NG SCH (21:11)
[2021-04-10] VITALS (27 sets, daily range): BP systolic 87–158; BP diastolic 47–76
--- NOTE | 2021-04-10 00:16 | NUR ---
PATIENT ON CONT VEGA VENT WITH 8.0 ET/TUBE IN PLACE 20CM LIP LINE, WITH ANCHOR FAST IN PLACE AND ROTATE Q2 HOURS, PT ON CURRENT VENT SETTINGS, A/C 16,400ML, PEEP6, FIO2 @ 45%, PT DOES ASSIST AT TIMES, SUCTIONED SLIGHT BLOOD TINGE SECRETIONS AT TIMES, SUCTION MOUTH WITH YANKAUER, CHANGE HME AND BANKS, NO VENT CHANGES MADE, ALL VENT ALARMS GOOD, VENT PLUGGED INTO RED WALL OUT LET, NO ABG IN AM. Ritika CARROLLP Addendum: 04/10/21 at 0019 by OLIVIER SCHULER RT Amended: Links added.
[2021-04-10] MEDS: FENTANYL CITRATE/PF 1,000 MCG in IV NORMAL SALINE 80 ML IV PRN ×2 (02:37→18:14)
[2021-04-10] MEDS: GLUCERNA 1.2 1000ML LIQUID NG PRN (02:37)
[2021-04-10] MEDS: IV NORMAL SALINE 250 ML IV PRN (03:35)
[2021-04-10 05:47] LABS: HEMATOCRIT 26.3 % (36.7-47.1); MEAN CORPUSCULAR HEMOGLOBIN 32.8 uug (23.8-33.4); MEAN CORPUSCULAR VOLUME 99.4 fL (73.0-96.2); PLATELET COUNT (AUTO) 81 K/uL (152-348)
[2021-04-10 05:55] LABS: CARBON DIOXIDE 39 mmol/L (21-32); CHLORIDE 107 mmol/L (98-107); CREATININE 0.3 mg/dL (0.6-1.3); GLUCOSE 143 mg/dL (74-106); MAGNESIUM 2.1 mg/dL (1.8-2.4); POTASSIUM 4.6 mmol/L (3.5-5.1); UREA NITROGEN, BLOOD 33 mg/dL (7-18)
[2021-04-10] MEDS: LEVOTHYROXINE SODIUM 137 MCG TABLET GT SCH (06:14)
[2021-04-10] MEDS: HYDROCORTISONE SOD SUCCINATE 100 MG/2 ML VIAL IV SCH ×3 (06:14→21:05)
[2021-04-10] MEDS: PANTOPRAZOLE ORAL SUSPENSION 40 MG SUSPDR.PKT PEG SCH (06:14)
[2021-04-10] MEDS: BLOOD SUGAR DIAGNOSTIC 1 EACH STRIP VI SCH ×3 (06:33→17:32)
[2021-04-10] MEDS: INSULIN REGULAR, HUMAN 300 UNIT/3 ML VIAL SQ PRN ×2 (06:34→17:41)
[2021-04-10] MEDS: PROPOFOL 100 ML IV PRN ×3 (06:40→20:10)
--- NOTE | 2021-04-10 07:15 | NUR ---
Received pt. on Ventilator A/C 16, Tv400, FIO2 45% saturation 95%. Peep +6. no sob, tachypnea or any other distress noted. Neuro-phelps adequately sedated with propofol at 40mcg/kg/min and Fentanyl at 40mcg/kg/min. Hemodynamically stable on sinus rhythm rate in the 70's-80's. G-T with feeding to be restarted at 0800, no residuals. rectal tube with mushy output. cedeno to gravity. Redness to sacral area wide spread and dark black center, on repositioning Q2H and prn. Will continue with care plan
[2021-04-10] MEDS: ACETYLCYSTEINE 10% 4ML VIAL NEB SCH ×5 (07:23→23:35)
[2021-04-10] MEDS: ALBUTEROL SULFATE 1.25 MG/3 ML NEBU NEB SCH ×6 (07:23→23:35)
--- NOTE | 2021-04-10 07:23 | NUR ---
Pt received in bed, laying semi-Butcher's, unable to communicate.. Orally intubated, ETT 8.0, approx 23 @ lip, secured in place with [place] Fast.. Continuous mechanical ventilation with vent: settings: A/C 16, Vt 400, PEEP +5, FiO2 45%, tolerating well, will continue to monitor.. Alarms on / audible and functioning normally at this time.. Vent plugged into emergency red outlet.. Will continue to monitor..
[2021-04-10] MEDS: DIGOXIN 125 MCG TABLET PO SCH (08:03)
[2021-04-10] MEDS: Z GUARD REMEDY PASTE 57 GM TUBE TOP SCH ×2 (08:03→21:07)
[2021-04-10] MEDS: VANCOMYCIN FOR PO/GT/NG USE NG SCH (08:04)
[2021-04-10] MEDS: DOCUSATE SODIUM 100 MG/10 ML LIQUID UDC NG SCH ×2 (08:04→20:09)
[2021-04-10] MEDS: PROTEIN SUPPLEMENT (PROSTAT) 30 ML LIQUID PEG SCH (08:07)
[2021-04-10] MEDS: NUTRISOURCE FIBER 4 GM PACKET GT SCH (08:08)
[2021-04-10] MEDS: SILODOSIN 4MG CAPSULE NG SCH (08:09)
[2021-04-10] MEDS: FLUTICASONE/VILANTEROL 1 EACH BLST.W.DEV INH SCH (08:17)
--- NOTE | 2021-04-10 10:05 | NUR ---
Pulmonary services Dr. Garber in the unit to follow up on pt. report given. At this time orders to slowly go down on sedation and if pt. does not tolerate it we can resume for pt. comfort. with him present propofol down to 30mcg/kg/min and fentanyl down to 30mcg/kg.min.
--- NOTE | 2021-04-10 10:22 | NUR ---
Sedation up pt RR of 37-38 pt using accessory muscles to breath. As ordered sedation up. Addendum: 04/10/21 at 1025 by MINERVA ORELLANA RN Saturation of of 98%. and down to 40%.
[2021-04-10] MEDS: ACETAMINOPHEN 650 MG/20.3 ML LIQUID UDC NG PRN (11:54)
--- NOTE | 2021-04-10 13:14 | NUR ---
A call from pt's son Mr. Bob Srivastava and at this time He requested to have attending to given Him a call to and have the DrMarlin to call him as stated "STAT I have a friend who is a coal picker and I want him and the DrMarlin to talk on the phone to discuss the condition and care of my father" Dr. Dixon informed. and as I was in the process of informing attending a 2nd call from Mr. Ta and this time He requested to have today's Attending DrMarlin's name and number to call him via exchange. Exchange number give it to him.
--- NOTE | 2021-04-10 14:03 | NUR ---
With no triggering event pt. went on sinus tachycardia rate 147-150. if unresolved will be treated as ordered.
[2021-04-10] MEDS: METOPROLOL TARTRATE 5 MG/5 ML VIAL IVP PRN ×2 (14:08→23:17)
--- NOTE | 2021-04-10 14:30 | NUR ---
Attending physician Dr. Dixon in the unit to see and examine pt. report given informed and aware that pt. is been sinus tachy in the 140's. Will continue to monitor.
--- NOTE | 2021-04-10 16:07 | NUR ---
A call to Dr. Hammond be to notify him of pt's current heart rate and that pt. was treated with metoprolol ivp as order and remains in A-flutter/ST in the 140's on/off. orders received.
[2021-04-10] MEDS ORDERED: METOPROLOL TARTRATE 25 MG TABLET GT SCH (17:00)
--- NOTE | 2021-04-10 18:56 | NUR ---
Left pt. on Ventilator A/C 16, Tv400, FIO2 40% saturation 95%. Peep +6. no sob, tachypnea or distress noted. Neuro-phelps adequately sedated with propofol at 40mcg/kg/min and Fentanyl at 40mcg/kg/min. Hemodynamically stable on sinus rhythm rate in the 70's-80's earlier in the shift unstable, on/off St/Atrial flutter. G-T to feeding, no residuals pt. tolerating well no n/v. rectal tube with mushy output. cedeno to gravity. Redness to sacral area wide spread and dark black center, on repositioning Q2H and prn. Will continue with care plan
--- NOTE | 2021-04-10 19:05 | NUR ---
Received patient in bed, intubated and sedated. Patient has a size 8.0 ETT, vent settings AC 16, Vt 400, Fio2 40%, PEEP 6, currently SAT 96%. Stable Atrial flutter on the monitor, BP stable, Levophed currently off, Temp 98.2, no signs of distress. LILLIAM PICC running Propofol @40mcg/kg/min, fentanyl @40mcg/hr. G-Tube secured in place, no signs of leaking, tube flushes well, currently receiving feeding Glucerna 1.2 @65mL/h. Nicole in place draining clear pilar urine. Flexi-seal in place draining semi-soft brown stool.
[2021-04-10] MEDS: ATORVASTATIN 10 MG TABLET NG SCH (21:05)
--- NOTE | 2021-04-10 23:06 | NUR ---
Patient entered sudden sinus tachycardia rate of 150. Other VS stable, patient remains sedated, no signs of distress. Will monitor to see if the patient converts on his own. If not, PRN Metoprolol 5m IV available.
--- NOTE | 2021-04-10 23:17 | NUR ---
Patient not converting on his own, sustaining sinus tachycardia rate 150. 5mg Metoprolol IV Push administered.
--- NOTE | 2021-04-10 23:24 | NUR ---
Patient converted to a normal sinus rhythm HR 76, other VS stable, patient remains sedated, no signs of distress.
--- NOTE | 2021-04-10 23:35 | NUR ---
Patient re-entered sinus tachycardia rate 150. Will continue to monitor.
--- NOTE | 2021-04-10 23:42 | NUR ---
Patient converted to a normal sinus rhythm rate 79. Will continue to monitor.
--- NOTE | 2021-04-10 23:53 | NUR ---
Patient received orally intubated via ETT 8.0, approx 21cm @ lip, secured in place with [place] Fast. Tolerating mechanical ventilation with ordered settings: A/C 16, Vt 400, PEEP +6, FiO2 40%. Airway is patent and secure: suctioned PRN without complications. Alarms on / audible;Vent plugged into emergency red outlet. Will continue to monitor throughout shift.
[2021-04-11] VITALS (24 sets, daily range): BP systolic 101–163; BP diastolic 55–76
--- NOTE | 2021-04-11 00:15 | NUR ---
Spoke with Dr. Tai informed him of the cardiac events this evening, patient currently atrial flutter on the monitor, rate 80s-100s. Order to change metoprolol order to 25mg GT TID and continue PRN metoprolol IV order.
[2021-04-11] MEDS: BLOOD SUGAR DIAGNOSTIC 1 EACH STRIP VI SCH ×4 (00:23→17:38)
[2021-04-11] MEDS: INSULIN REGULAR, HUMAN 300 UNIT/3 ML VIAL SQ PRN ×3 (00:24→17:45)
[2021-04-11] MEDS: GLUCERNA 1.2 1000ML LIQUID NG PRN (03:21)
[2021-04-11] MEDS: PROPOFOL 100 ML IV PRN ×3 (03:47→17:53)
[2021-04-11] MEDS: METOPROLOL TARTRATE 5 MG/5 ML VIAL IVP PRN (03:49)
[2021-04-11 04:50] LABS: HEMATOCRIT 29.2 % (36.7-47.1); MEAN CORPUSCULAR HEMOGLOBIN 32.7 uug (23.8-33.4); MEAN CORPUSCULAR VOLUME 99.5 fL (73.0-96.2); PLATELET COUNT (AUTO) 89 K/uL (152-348)
[2021-04-11 05:06] LABS: CARBON DIOXIDE 38 mmol/L (21-32); CHLORIDE 105 mmol/L (98-107); CREATININE 0.4 mg/dL (0.6-1.3); GLUCOSE 149 mg/dL (74-106); MAGNESIUM 2.1 mg/dL (1.8-2.4); PHOSPHOROUS 3.1 mg/dL (2.5-4.9); POTASSIUM 4.7 mmol/L (3.5-5.1); UREA NITROGEN, BLOOD 31 mg/dL (7-18)
[2021-04-11] MEDS: PANTOPRAZOLE ORAL SUSPENSION 40 MG SUSPDR.PKT PEG SCH (06:20)
[2021-04-11] MEDS: IV NORMAL SALINE 250 ML IV PRN (06:20)
[2021-04-11] MEDS: HYDROCORTISONE SOD SUCCINATE 100 MG/2 ML VIAL IV SCH ×3 (06:20→21:22)
[2021-04-11] MEDS: LEVOTHYROXINE SODIUM 137 MCG TABLET GT SCH (06:20)
--- NOTE | 2021-04-11 06:50 | NUR ---
Called Dr. Tai as patient has been in sustained tachycardia in the 150s-160s. Dr. Tai says options are limited as the patient's BP has decreased. Order for Digoxin 0.5mg IV x1 now. order entered and carried out.
[2021-04-11] MEDS ORDERED: DIGOXIN 500 MCG/2 ML AMP IV ONE (07:00)
--- NOTE | 2021-04-11 07:05 | NUR ---
Patient remains sedated and on mechanical ventilation. Patient currently in atrial flutter sustained rate of 148 following digoxin administration, was on and off tachy throughout the night, given PRN metoprolol twice during the night. Ventilator settings remain the same. Sedation remains the same Propofol @40mcg/kg/min, fentanyl @40mcg/hr. GT feeding currently off but tolerated well throughout the night. Nicole draining clear pilar urine, Flexi-seal intact and draining well.
--- NOTE | 2021-04-11 07:15 | NUR ---
Received patient on Ventilator A/C 16, Tv400, FIO2 40% saturation 95%. Peep +6 ETT 8.0 22Ll. saturation of 97%. noted. Neuro-phelps adequately sedated with propofol at 40mcg/kg/min and Fentanyl at 40mcg/kg/min. Hemodynamically unstable on sinus tachy/Aflutter on/off digoxin given by NSRN,. G-T to feeding, no residuals pt. tolerating well no n/v. rectal tube with mushy output. cedeno to gravity. Redness to sacral unchanged, on repositioning Q2H and prn. Will continue with care plan
[2021-04-11] MEDS: ALBUTEROL SULFATE 1.25 MG/3 ML NEBU NEB SCH ×3 (07:41→23:27)
[2021-04-11] MEDS: ACETYLCYSTEINE 10% 4ML VIAL NEB SCH ×3 (07:41→23:27)
--- NOTE | 2021-04-11 07:41 | NUR ---
Pt received orally intubated by ETT 8.0 @ approx 21cm at the lip, secured by [place] Fast. Pt is on Hdez vent with given settings of AC 16, 400, +6, 40%. Alarms are on and audible. Ventilator plugged in red outlets. Breathing Tx given and wes well. Will continue to monitor throughout shift
[2021-04-11] MEDS: METOPROLOL TARTRATE 25 MG TABLET GT SCH ×3 (08:02→17:35)
[2021-04-11] MEDS: PROTEIN SUPPLEMENT (PROSTAT) 30 ML LIQUID PEG SCH (08:03)
[2021-04-11] MEDS: DOCUSATE SODIUM 100 MG/10 ML LIQUID UDC NG SCH ×2 (08:06→21:00)
[2021-04-11] MEDS: NUTRISOURCE FIBER 4 GM PACKET GT SCH (08:06)
[2021-04-11] MEDS: SILODOSIN 4MG CAPSULE NG SCH (08:07)
[2021-04-11] MEDS: Z GUARD REMEDY PASTE 57 GM TUBE TOP SCH ×2 (08:07→21:23)
[2021-04-11] MEDS: VANCOMYCIN FOR PO/GT/NG USE NG SCH (08:07)
--- NOTE | 2021-04-11 08:45 | NUR ---
cardiology services, Dr. Glynn in the unit to see and examine pt.
[2021-04-11] MEDS: FLUTICASONE/VILANTEROL 1 EACH BLST.W.DEV INH SCH (09:00)
--- NOTE | 2021-04-11 09:45 | NUR ---
PT's daughter in to visit she was updated from nursing perspective at this time she requested to have adjunct professor of english to give her a call and discuss care plan. Dr. Glynn called and informed of pt's daughter request.
--- NOTE | 2021-04-11 10:25 | NUR ---
Pulmonary services Jcarlos Can in the unit to see pt. report given orders to continue with care plan received.
--- NOTE | 2021-04-11 10:54 | NUR ---
Patient been follow up by wound care nurse Ms. Forrester.
--- NOTE | 2021-04-11 11:07 | NUR ---
WOUND CARE CONSULT/FOLLOW UP: PT SEEN FOR SACRAL DEEP TISSUE INJURY IN EVOLUTION OVER AREA OF PREVIOUS SCARRING. SCARRING WAS NOTED TO BE PRESENT ON ADMISSION. RECOMMENDATIONS MADE FOR WOUND CARE AND SKIN PROTECTION. DISCUSSED WITH NURSING STAFF. PT NOTED TO HAVE MULTIPLE CO-MORBIDITIES INCLUDING GENERALIZED EDEMA, METASTATIC LUNG CANCER, ANEMIA, COPD, AND RESPIRATORY FAILURE (STATUS POST CARDIAC ARREST AND CURRENTLY INTUBATED). DUE TO MULTIPLE CO-MORBIDITIES, FURTHER SKIN BREAKDOWN MAY BE UNAVOIDABLE. ALL SKIN PROTECTION MEASURES HAVE BEEN IN PLACE INCLUDING FIRST STEP HARSHILS LOW AIRLOSS MATTRESS. IN AGREEMENT WITH PLAN OF CARE. Addendum: 04/11/21 at 1110 by GARRISON ALARCON RN Amended: Links added.
--- NOTE | 2021-04-11 12:00 | NUR ---
Marlin Antonia called by printing plate maker Dr. Glynn X 2 but unable to contact since no one cherry picker operator the call r left a message.
[2021-04-11] MEDS: FENTANYL CITRATE/PF 1,000 MCG in IV NORMAL SALINE 80 ML IV PRN (17:51)
--- NOTE | 2021-04-11 18:54 | NUR ---
Left patient on Ventilator A/C 16, Tv400, FIO2 40% saturation 93%. Peep +6 ETT 8.0 22Ll. Neuro-phelps adequately sedated with propofol at 40mcg/kg/min and Fentanyl at 40mcg/kg/min. Hemodynamically stable on A-flutter. G-T to feeding no residuals pt. tolerating well no n/v. rectal tube with mushy output. cedeno to gravity. Redness to sacral unchanged, on repositioning Q2H and prn. Will continue with care plan
[2021-04-11] MEDS: ATORVASTATIN 10 MG TABLET NG SCH (21:22)
[2021-04-12] VITALS (31 sets, daily range): BP systolic 85–136; BP diastolic 38–73
[2021-04-12] MEDS: BLOOD SUGAR DIAGNOSTIC 1 EACH STRIP VI SCH ×5 (01:03→23:35)
[2021-04-12] MEDS: INSULIN REGULAR, HUMAN 300 UNIT/3 ML VIAL SQ PRN ×3 (01:05→17:28)
[2021-04-12] MEDS: PROPOFOL 100 ML IV PRN ×2 (02:30→17:32)
[2021-04-12 05:27] LABS: HEMATOCRIT 29.4 % (36.7-47.1); PLATELET COUNT (AUTO) 88 K/uL (152-348)
[2021-04-12 05:33] LABS: ALANINE AMINOTRANSFERASE 57 U/L (16-63); ALKALINE PHOSPHATASE 147 U/L (50-136); ASPARTATE AMINOTRANSFERASE 26 U/L (15-37); BILIRUBIN,TOTAL 0.3 mg/dL (0.2-1.0); CARBON DIOXIDE 39 mmol/L (21-32); CHLORIDE 104 mmol/L (98-107); CREATININE 0.3 mg/dL (0.6-1.3); GLUCOSE 138 mg/dL (74-106); MAGNESIUM 2.1 mg/dL (1.8-2.4); POTASSIUM 4.8 mmol/L (3.5-5.1); TOTAL PROTEIN, SERUM 4.4 g/dL (6.4-8.2); UREA NITROGEN, BLOOD 28 mg/dL (7-18)
[2021-04-12] MEDS: HYDROCORTISONE SOD SUCCINATE 100 MG/2 ML VIAL IV SCH ×3 (06:38→21:29)
[2021-04-12] MEDS: LEVOTHYROXINE SODIUM 137 MCG TABLET GT SCH (06:38)
[2021-04-12] MEDS: PANTOPRAZOLE ORAL SUSPENSION 40 MG SUSPDR.PKT PEG SCH (06:39)
--- NOTE | 2021-04-12 07:20 | NUR ---
Pt received orally intubated with 8.0 @21 cm lip line on continuous mechanical ventilation. Pt is on Hdez vent with ordered settings of A/C 16, VT 400, PEEP +6, FIO2 40% . Pt tolerating vent settings well. In line nebulizer Txs given as ordered. Txs tolerated well without adverse reactions noted. Suctioned for small amounts of yellowish secretions. Vent alarm parameters checked, on and audible. HME changed. Oral care done. Bag/valve/mask at bedside. Vent plugged into red emergency outlet. Will continue to monitor.
--- NOTE | 2021-04-12 07:30 | NUR ---
Patient seen by sap senior developer Dr. Glynn. Orders to continue with care plan received.
--- NOTE | 2021-04-12 07:30 | NUR ---
Received patient on Ventilator A/C 16, Tv400, FIO2 40% saturation 95%. Peep +6 ETT 8.0 22Ll. saturation of 97%. noted. Neuro-phelps adequately sedated with propofol at 40mcg/kg/min and Fentanyl at 40mcg/kg/min. Hemodynamically stable on sinus tachy/Aflutter. G-T with feeding to be resumed no residuals no n/v. rectal tube with mushy output. cedeno to gravity. Redness to sacral unchanged, on repositioning Q2H and prn. Will continue with care plan
[2021-04-12] MEDS: ALBUTEROL SULFATE 1.25 MG/3 ML NEBU NEB SCH ×3 (08:02→23:09)
[2021-04-12] MEDS: ACETYLCYSTEINE 10% 4ML VIAL NEB SCH ×3 (08:02→23:09)
[2021-04-12] MEDS: DIGOXIN 125 MCG TABLET PO SCH (08:04)
[2021-04-12] MEDS: Z GUARD REMEDY PASTE 57 GM TUBE TOP SCH ×2 (08:04→20:27)
[2021-04-12] MEDS: SILODOSIN 4MG CAPSULE NG SCH (08:05)
[2021-04-12] MEDS: DOCUSATE SODIUM 100 MG/10 ML LIQUID UDC NG SCH ×2 (08:05→20:37)
[2021-04-12] MEDS: FLUTICASONE/VILANTEROL 1 EACH BLST.W.DEV INH SCH (08:06)
[2021-04-12] MEDS: NUTRISOURCE FIBER 4 GM PACKET GT SCH (08:06)
[2021-04-12] MEDS: PROTEIN SUPPLEMENT (PROSTAT) 30 ML LIQUID PEG SCH (08:07)
[2021-04-12] MEDS: METOPROLOL TARTRATE 25 MG TABLET GT SCH ×3 (08:07→17:29)
[2021-04-12] MEDS: FUROSEMIDE 20 MG/2 ML VIAL IV SCH ×2 (08:08→20:36)
[2021-04-12] MEDS: ALBUMIN HUMAN 25% 100 ML IV SCH ×3 (08:10→19:50)
[2021-04-12] MEDS: VANCOMYCIN FOR PO/GT/NG USE NG SCH (08:11)
--- NOTE | 2021-04-12 08:30 | NUR ---
Patient seen by attending physician Dr. Dsouza report given.
[2021-04-12] MEDS: GLUCERNA 1.2 1000ML LIQUID NG PRN (08:40)
--- NOTE | 2021-04-12 09:05 | NUR ---
Patient saturation dropping to 84% 82%. pulmonary toileting rendered with no improvement in saturation RT called and at this 0900 FIO2 increased to 65% 0905 pt remains on 84% FIO2 75% 0915 FIO2 up 85% patient saturation of 91%.
[2021-04-12] MEDS: NOREPINEPHRINE BITARTRATE 8 MG in IV NORMAL SALINE 242 ML IV PRN ×2 (09:58→10:00)
--- NOTE | 2021-04-12 11:05 | NUR ---
Saturation of 100% patient placed back to 65% FIO2.
[2021-04-12] MEDS ORDERED: NOREPINEPHRINE BITARTRATE 32 MG in IV NORMAL SALINE 218 ML IV PRN (12:00)
--- NOTE | 2021-04-12 13:00 | NUR ---
pt. hemodynamically stable sbp 111/55 off levophed, saturation of 97% SERGIO down to 55%.
--- NOTE | 2021-04-12 13:00 | NUR ---
pt stable saturation above 92% FIO2 down to 55%.
--- NOTE | 2021-04-12 13:48 | NUR ---
Patient seen by [employer] Welding Machine Operator Dr. Garber report given orders to continue with care plan received.
--- NOTE | 2021-04-12 18:45 | NUR ---
Left patient on Ventilator A/C 16, Tv400, FIO2 45% saturation 94%. Peep +6 ETT 8.0 22Ll. Neuro-phelps adequately sedated with propofol at 40mcg/kg/min and Fentanyl at 40mcg/kg/min. Hemodynamically stable on sinus rhythm/sinus jonathon. G-T with feeding running at goal therapy with no residuals no n/v. rectal tube with mushy output. cedeno to gravity. Redness to sacral unchanged, on repositioning Q2H and prn. Will continue with care plan
--- NOTE | 2021-04-12 19:30 | NUR ---
Report received; care assumed. Patient orally intubated and sedated. Code status: DNR/DNI. Currently on AC=16, PI=048qi, FIO2=45% and PEEP= 6 cm. O2 saturations above 94%. With Propofol and Fentanyl drips via LILLIAM PICC line. Patient doesn't open eyes to pain; poor cough reflex during suctioning. With bloody secretions orally and pale daley secretions via ETT. Assessment completed and documented. Addendum: 04/13/21 at 0000 by MINERVA CAMPBELL RN Amended: Links added. Addendum: 04/13/21 at 0006 by MINERVA CAMPBELL RN Amended: Links added. Addendum: 04/13/21 at 0006 by MINERVA CAMPBELL RN Amended: Links added. Addendum: 04/13/21 at 0008 by MINERVA CAMPBELL RN Amended: Links added. Addendum: 04/13/21 at 0008 by MINERVA CAMPBELL RN Amended: Links added. Addendum: 04/13/21 at 0010 by MINERVA CAMPBELL RN Amended: Links added. Addendum: 04/13/21 at 0011 by MINERVA CAMPBELL RN Amended: Links added.
--- NOTE | 2021-04-12 19:45 | NUR ---
Turned and repositioned. Flexi seal leaking with semi formed to liquid brown stools. Flexi seal irrigated gently; continues to leak stools around anal orifice. Flexi seal balloon leaked; new Flexi seal inserted without problems. Routine skin care provided. HOB elevated above 30 degrees at all times. With marked generalized pitting edema. Extremities elevated on pillows. Addendum: 04/13/21 at 0006 by MINERVA CAMPBELL RN Amended: Links added. Addendum: 04/13/21 at 0006 by MINERVA CAMPBELL RN Amended: Links added. Addendum: 04/13/21 at 0008 by MINERVA CAMPBELL RN Amended: Links added. Addendum: 04/13/21 at 0008 by MINERVA CAMPBELL RN Amended: Links added. Addendum: 04/13/21 at 0010 by MINERVA CAMPBELL RN Amended: Links added. Addendum: 04/13/21 at 0011 by MINERVA CAMPBELL RN Amended: Links added.
[2021-04-12] MEDS: FENTANYL CITRATE/PF 1,000 MCG in IV NORMAL SALINE 80 ML IV PRN (20:28)
[2021-04-12] MEDS: ATORVASTATIN 10 MG TABLET NG SCH (20:37)
[2021-04-12] MEDS: IV NORMAL SALINE 250 ML IV PRN (23:25)
[2021-04-13] VITALS (24 sets, daily range): BP systolic 97–151; BP diastolic 48–69
[2021-04-13] MEDS: ALBUMIN HUMAN 25% 100 ML IV SCH (01:35)
[2021-04-13] MEDS: PROPOFOL 100 ML IV PRN ×3 (01:44→17:41)
--- NOTE | 2021-04-13 02:30 | NUR ---
Am care rendered. Mark changed. Tolerated care fairly well. O2 saturations remain above 94% on FIO2=45%. Addendum: 04/13/21 at 0402 by MINERVA CAMPBELL RN Amended: Links added.
[2021-04-13 04:48] LABS: HEMATOCRIT 23.7 % (36.7-47.1); MEAN CORPUSCULAR HEMOGLOBIN 32.7 uug (23.8-33.4); MEAN CORPUSCULAR VOLUME 99.2 fL (73.0-96.2); PLATELET COUNT (AUTO) 66 K/uL (152-348)
[2021-04-13 04:59] LABS: CARBON DIOXIDE 39 mmol/L (21-32); CHLORIDE 103 mmol/L (98-107); CREATININE 0.3 mg/dL (0.6-1.3); GLUCOSE 141 mg/dL (74-106); PHOSPHOROUS 3.2 mg/dL (2.5-4.9); POTASSIUM 4.2 mmol/L (3.5-5.1); UREA NITROGEN, BLOOD 28 mg/dL (7-18)
[2021-04-13] MEDS: PANTOPRAZOLE ORAL SUSPENSION 40 MG SUSPDR.PKT PEG SCH (05:28)
[2021-04-13] MEDS: HYDROCORTISONE SOD SUCCINATE 100 MG/2 ML VIAL IV SCH ×3 (05:28→22:03)
[2021-04-13] MEDS: BLOOD SUGAR DIAGNOSTIC 1 EACH STRIP VI SCH ×4 (05:44→23:13)
[2021-04-13] MEDS: GLUCERNA 1.2 1000ML LIQUID NG PRN (05:45)
[2021-04-13 06:07] LABS: BAND % (MANUAL) 8 % (0-10); EOSINOPHILS % (MANUAL) 1 % (0-8); LYMPHOCYTES % (MANUAL) 4 % (20-40); MONOCYTES % (MANUAL) 3 % (2-10); NEUTROPHILS % (MANUAL) 84 % (42-75)
[2021-04-13] MEDS: LEVOTHYROXINE SODIUM 137 MCG TABLET GT SCH (06:10)
--- NOTE | 2021-04-13 06:15 | NUR ---
Seen by Dr. Marks. Updated of patient's condition. Aware of am labs especially H/H 7.03/07. No new orders. Addendum: 04/13/21 at 9753 by MINERVA CAMPBELL RN Amended: Links added.
--- NOTE | 2021-04-13 06:25 | NUR ---
Propofol drip turned off for sedation vacation. After 30 minutes patient opens eyes to voice, no tracking, RR in the 20's. BP in the 150's. Propofol drip resumed at 40 mcg/kg/min.
[2021-04-13] MEDS: ALBUTEROL SULFATE 1.25 MG/3 ML NEBU NEB SCH ×3 (07:12→23:25)
[2021-04-13] MEDS: ACETYLCYSTEINE 10% 4ML VIAL NEB SCH ×3 (07:12→23:25)
--- NOTE | 2021-04-13 07:13 | NUR ---
Pt received laying in bed, semi-Butcher's, unable to communicate.. Orally intubated, ETT 8.0, approx 21 @ lip, secured in place with [place] Fast.. Continuous mechanical ventilation with vent: settings: A/C 16, Vt 400, PEEP +6, FiO2 45%, tolerating well, will continue to monitor.. Alarms on / audible and functioning normally at this time.. Vent plugged into emergency red outlet.. Will continue to monitor..
[2021-04-13] MEDS: PROTEIN SUPPLEMENT (PROSTAT) 30 ML LIQUID PEG SCH (07:48)
[2021-04-13] MEDS: DIGOXIN 125 MCG TABLET PO SCH ×2 (07:54→10:45)
[2021-04-13] MEDS: METOPROLOL TARTRATE 25 MG TABLET GT SCH ×3 (07:59→17:09)
[2021-04-13] MEDS: DOCUSATE SODIUM 100 MG/10 ML LIQUID UDC NG SCH ×2 (07:59→20:08)
[2021-04-13] MEDS: SILODOSIN 4MG CAPSULE NG SCH (08:00)
[2021-04-13] MEDS: NUTRISOURCE FIBER 4 GM PACKET GT SCH (08:00)
[2021-04-13] MEDS: FUROSEMIDE 20 MG/2 ML VIAL IV SCH ×2 (08:00→20:08)
[2021-04-13] MEDS: Z GUARD REMEDY PASTE 57 GM TUBE TOP SCH ×2 (08:04→20:08)
[2021-04-13] MEDS: VANCOMYCIN FOR PO/GT/NG USE NG SCH (08:07)
[2021-04-13] MEDS: FLUTICASONE/VILANTEROL 1 EACH BLST.W.DEV INH SCH (08:18)
--- NOTE | 2021-04-13 09:30 | NUR ---
PT.WAS SEEN BY AND ADIN WITH NEW ORDERS
--- NOTE | 2021-04-13 10:20 | NUR ---
PT.WAS SEEN BY WITH NEW ORDERS.PT.FAMILY AT BEDSIDE,UPDATED WITH PT.CONDITION AND PLAN OF CARE.
--- NOTE | 2021-04-13 14:00 | NUR ---
sedation vacation done,Fent.Gtt decr to 25.diprivan restarted,due pt.high HR &RR
[2021-04-13] MEDS: METOPROLOL TARTRATE 5 MG/5 ML VIAL IVP PRN (17:11)
--- NOTE | 2021-04-13 18:28 | NUR ---
No changes in pt.condition,no s/s of acute distress or pain noted.
--- NOTE | 2021-04-13 19:30 | NUR ---
Report received; care assumed. Patient orally intubated and to mechanical ventilator settings as follows: AC=16, FIO2=45%, DX=676 ml, PEEP=6 cm. O2 saturations above 94%. With order of CPAP trial in am. Currently sedated on continuous Diprivan drip at 40 mcg/kg/min and Fentanyl drip at 25 mcg/H via LILLIAM PICC line. color television console monitor: Afib flutter rate 99-100. BPs stable. GT feedings at 65 ml/H, no residuals. Assessment completed. Suctioned for very scant daley colored secretions. Weak cough effort. Turned and repositioned. Addendum: 04/14/21 at 301 by MINERVA CAMPBELL RN Amended: Links added. Addendum: 04/14/21 at 303 by MINERVA CAMPBELL RN Amended: Links added.
[2021-04-13] MEDS: FENTANYL CITRATE/PF 1,000 MCG in IV NORMAL SALINE 80 ML IV PRN (19:36)
[2021-04-13] MEDS: ATORVASTATIN 10 MG TABLET NG SCH (20:10)
--- NOTE | 2021-04-13 22:00 | NUR ---
Family visited; updated of patient's condition. CPAP trial discussed. Angelo Raz verbalized understanding. Addendum: 04/14/21 at 0304 by MINERVA CAMPBELL RN Amended: Links added.
[2021-04-13] MEDS: INSULIN REGULAR, HUMAN 300 UNIT/3 ML VIAL SQ PRN (23:14)
[2021-04-14] VITALS (19 sets, daily range): BP systolic 0–196; BP diastolic 0–102
[2021-04-14] MEDS: PROPOFOL 100 ML IV PRN (00:10)
[2021-04-14] MEDS: IV NORMAL SALINE 250 ML IV PRN (00:11)
--- NOTE | 2021-04-14 00:14 | NUR ---
PATIENT ON CONT VEGA VENT WITH 8.0 ET/TUBE IN PLACE, 20CM LIP LINE, WITH ANCHOR FAST IN PLACE AND SECURED, NO VENT CHANGES MADE, PT ON CURRENT VENT SETTINGS, A/C 16, 400ML, PEEP6, FIO2 @ 45%, WITH MOSTLY CONTROLLED VENTILATION, WITH NEB INLINE WITH XOPENEX, AND MUCOMYST, TOLL WELL, ALL VENT ALARMS GOOD, AMBU BAG AT BEDSIDE, VENT PLUGGED INTO RED WALL OUT, WEANING AT 0700, ORDERED, SLIGHTLY TURN OFF SEDATION AN HOUR PRIOR TO WEANING CPAP, PSV 8 @ 07:00. Ritika SCHULER RCP Addendum: 04/14/21 at 0018 by OLIVIER SCHULER RT Amended: Links added.
[2021-04-14] MEDS: METOPROLOL TARTRATE 5 MG/5 ML VIAL IVP PRN ×2 (00:56→08:56)
--- NOTE | 2021-04-14 00:56 | NUR ---
HR trending higher after bath. Lopressor 5 mg slow IV given. HR 123-129, Afib. BPs stable.
--- NOTE | 2021-04-14 04:00 | NUR ---
Converted to SR with PACs, PVCs. BP stable. Propofol drip titrated down.
[2021-04-14 04:52] LABS: MEAN CORPUSCULAR HEMOGLOBIN 32.8 uug (23.8-33.4); MEAN CORPUSCULAR VOLUME 99.8 fL (73.0-96.2); PLATELET COUNT (AUTO) 81 K/uL (152-348)
[2021-04-14 05:06] LABS: CHLORIDE 105 mmol/L (98-107); CREATININE 0.4 mg/dL (0.6-1.3); GLUCOSE 170 mg/dL (74-106); MAGNESIUM 2.1 mg/dL (1.8-2.4); PHOSPHOROUS 2.9 mg/dL (2.5-4.9); POTASSIUM 3.9 mmol/L (3.5-5.1); TRIGLYCERIDES 112 MG/DL (30-150); UREA NITROGEN, BLOOD 32 mg/dL (7-18)
[2021-04-14 05:10] LABS: CARBON DIOXIDE 40 mmol/L (21-32)
[2021-04-14] MEDS: BLOOD SUGAR DIAGNOSTIC 1 EACH STRIP VI SCH ×2 (05:23→12:33)
[2021-04-14] MEDS: HYDROCORTISONE SOD SUCCINATE 100 MG/2 ML VIAL IV SCH (05:23)
[2021-04-14] MEDS: PANTOPRAZOLE ORAL SUSPENSION 40 MG SUSPDR.PKT PEG SCH (05:23)
[2021-04-14] MEDS: INSULIN REGULAR, HUMAN 300 UNIT/3 ML VIAL SQ PRN (05:25)
[2021-04-14] MEDS: LEVOTHYROXINE SODIUM 137 MCG TABLET GT SCH (06:03)
--- NOTE | 2021-04-14 06:28 | NUR ---
For CPAP trial @ 0700. Sedation titrated down. O2 saturations maintaining above 94% on FIO2 45%. athletic monitor: SR rate 60's-70's, with PACS, PVCs. Placed on semi fowlers position. Tolerating GT feedings well; off 2985-2979. Urine output 500 ml x 12 H.
--- NOTE | 2021-04-14 07:00 | NUR ---
Placed on CPAP PSV=8 by RTs. Propofol and Fentanyl drips infusing minimally; see IV spread sheet for rates/dosages. Will monitor closely.
[2021-04-14] MEDS: ALBUTEROL SULFATE 1.25 MG/3 ML NEBU NEB SCH (07:07)
[2021-04-14] MEDS: ACETYLCYSTEINE 10% 4ML VIAL NEB SCH (07:07)
--- NOTE | 2021-04-14 08:00 | NUR ---
pt on air mattress, intubated, pt has cedeno in place, flexiseal in tact. pt tachycardic on monitor. pt unable to speak, sedated. pt had gtube feeding, pt on cpap trial, doing well, will continue to monitor.
[2021-04-14 08:05] LABS: ABG BASE EXCESS 12.4 mmol/L; ABG HCO3 39.4 mmol/L; ABG PCO2 64.7 mmHg (35.0-45.0); ABG PH 7.402 (7.350-7.450); ABG PO2 73.4 mmHg (75.0-100.0); ABG SITE RIGHT RADIAL; ABG TOTAL HEMOGLOBIN 10.6 G/dL (13.5-18.0); COHb 0.4 % (0.5-1.5); MetHb 0.3 % (0.0-1.5); VENT MODE CPAP - PS 8
--- NOTE | 2021-04-14 08:19 | NUR ---
Dr. Mcmahon is on the phone with Antonia and explaining the extubation process and comfort care.
[2021-04-14] MEDS ORDERED: DC PROPOFOL ONCE EXTUBATED XX PRN (08:30)
[2021-04-14] MEDS ORDERED: POTASSIUM CHLORIDE 20 MEQ POWDER PACKET GT ONE (08:30)
[2021-04-14] MEDS: DIGOXIN 125 MCG TABLET PO SCH (08:44)
[2021-04-14] MEDS: METOPROLOL TARTRATE 25 MG TABLET GT SCH (08:44)
[2021-04-14] MEDS: DOCUSATE SODIUM 100 MG/10 ML LIQUID UDC NG SCH (08:44)
[2021-04-14] MEDS: FUROSEMIDE 20 MG/2 ML VIAL IV SCH (08:45)
[2021-04-14] MEDS: PROTEIN SUPPLEMENT (PROSTAT) 30 ML LIQUID PEG SCH (08:45)
[2021-04-14] MEDS: SILODOSIN 4MG CAPSULE NG SCH (08:46)
[2021-04-14] MEDS: Z GUARD REMEDY PASTE 57 GM TUBE TOP SCH (08:49)
[2021-04-14] MEDS: VANCOMYCIN FOR PO/GT/NG USE NG SCH (08:49)
[2021-04-14] MEDS: NUTRISOURCE FIBER 4 GM PACKET GT SCH (08:50)
[2021-04-14] MEDS: FLUTICASONE/VILANTEROL 1 EACH BLST.W.DEV INH SCH (09:00)
[2021-04-14] MEDS ORDERED: ACETAzolamide SODIUM 500 MG VIAL IV SCH (09:00)
--- NOTE | 2021-04-14 09:23 | NUR ---
discuseedDr. Hernandez, continue as plan for comfort once extubated, phentanyl to continue Addendum: 04/14/21 at 925 by SHREE MCLEOD RN discussed pt with Dr. Dsouza, continue with plan for comfort once extubated, phentanyl to continue.
--- NOTE | 2021-04-14 09:25 | NUR ---
Pt extubated without complications. Put on simple mask on 8LPM spo2 96%. Will continue to monitor.
--- NOTE | 2021-04-14 09:31 | NUR ---
pt extubated, on 8L simple mask. saturating at 95%. will continue to monitor
--- NOTE | 2021-04-14 09:55 | NUR ---
Fentanyl increased to 20. pt saturating at 93% on 8L simple mask. will continue to monitor
[2021-04-14] MEDS: GLUCERNA 1.2 1000ML LIQUID NG PRN (10:33)
[2021-04-14] MEDS ORDERED: METOPROLOL TARTRATE 5 MG/5 ML VIAL IVP STA (10:44)
[2021-04-14] MEDS: MORPHINE SULFATE 2 MG/1 ML DISP.SYRIN IV PRN (11:15)
--- NOTE | 2021-04-14 11:15 | NUR ---
Contacted Dr. Mcmahon, notified him that patient has desaturation in to mid 80's, family refusing Bipap at this time. patient placed on nonrebreather 15L. Dr. Mcmahon stated to start morphine drip if patient is struggling. Patient HR remains in 120"s after two PRN doses of IV metoprolol. BP in 170's.
--- NOTE | 2021-04-14 12:00 | NUR ---
pt has agonal breathing, saturating at 98% on nonrebreather at 10L/min. family at [facility]. Addendum: 04/14/21 at 1248 by SHREE MCLEOD RN saturating at 83% on nonrebreather.
--- NOTE | 2021-04-14 12:44 | NUR ---
family aranda at bedside with pt.
--- NOTE | 2021-04-14 13:15 | NUR ---
Patient has been apneic for 5 minutes, with no chest rise and no oxygen saturation reading. telemetry monitor is asystole, no palpable pulse, and absent of heart tones. BP pressure cannot be monitored. Pupils are fixed and dilated, and patient is absent of reflexes. Patient pronounced at 1315.
--- NOTE | 2021-04-14 16:00 | NUR ---
Body was picked up by [facility].
[2021-04-14] MEDS ORDERED: NUTRISOURCE FIBER 4 GM PACKET GT SCH (17:00)
[2021-04-14] MEDS ORDERED: HYDROCORTISONE SOD SUCCINATE 100 MG/2 ML VIAL IV SCH (18:00)
== END 2021-04-14 16:00 | DRG 207 ==
LOC: ER 13:44 → TELE3 21:05 → MEDSURG3 03-21 15:50 → CCU 03-23 19:00 → TELE-TD3 03-30 19:00 → CCU 03-31 06:28
PROVIDERS: ADMIT Nurse Practitioner Acute Care; ATTEND Internal Medicine
PROC: 5A12012 Performance of Cardiac Output, Single, Manual (ICD-10-PCS; principal; 2021-03-24)
PROC: 0BH17EZ Insertion of Endotracheal Airway into Trachea, Via Natural or Artificial Opening (ICD-10-PCS; 2021-03-24)
PROC: 5A1945Z Respiratory Ventilation, 24-96 Consecutive Hours (ICD-10-PCS; 2021-03-24)
PROC: 02HV33Z Insertion of Infusion Device into Superior Vena Cava, Percutaneous Approach (ICD-10-PCS; 2021-03-24)
PROC: B548ZZA Ultrasonography of Superior Vena Cava, Guidance (ICD-10-PCS; 2021-03-24)
PROC: 5A1955Z Respiratory Ventilation, Greater than 96 Consecutive Hours (ICD-10-PCS; 2021-03-31)
PROC: 0DH63UZ Insertion of Feeding Device into Stomach, Percutaneous Approach (ICD-10-PCS; 2021-03-31)
DX: J69.0 Pneumonitis due to inhalation of food and vomit (principal); R65.21 Severe sepsis with septic shock; I21.A1 Myocardial infarction type 2; E43 Unspecified severe protein-calorie malnutrition; A41.9 Sepsis, unspecified organism; G92 Toxic encephalopathy; I50.31 Acute diastolic (congestive) heart failure; J96.21 Acute and chronic respiratory failure with hypoxia; J96.22 Acute and chronic respiratory failure with hypercapnia; S22.41XA Multiple fractures of ribs, right side, initial encounter for closed fracture; S32.039A Unspecified fracture of third lumbar vertebra, initial encounter for closed fracture; D68.59 Other primary thrombophilia; E72.20 Disorder of urea cycle metabolism, unspecified; E87.0 Hyperosmolality and hypernatremia; E87.1 Hypo-osmolality and hyponatremia; G93.1 Anoxic brain damage, not elsewhere classified; I48.92 Unspecified atrial flutter; J44.0 Chronic obstructive pulmonary disease with (acute) lower respiratory infection; C78.02 Secondary malignant neoplasm of left lung; C78.01 Secondary malignant neoplasm of right lung; N17.9 Acute kidney failure, unspecified; R64 Cachexia; T17.890A Other foreign object in other parts of respiratory tract causing asphyxiation, initial encounter; I46.9 Cardiac arrest, cause unspecified; K56.41 Fecal impaction; D50.9 Iron deficiency anemia, unspecified; D69.6 Thrombocytopenia, unspecified; E89.0 Postprocedural hypothyroidism; Z85.850 Personal history of malignant neoplasm of thyroid; E16.2 Hypoglycemia, unspecified; E78.5 Hyperlipidemia, unspecified; E83.39 Other disorders of phosphorus metabolism; E86.0 Dehydration; E86.1 Hypovolemia; F03.90 Unspecified dementia, unspecified severity, without behavioral disturbance, psychotic disturbance, mood disturbance, and anxiety; F17.210 Nicotine dependence, cigarettes, uncomplicated; G89.4 Chronic pain syndrome; Z66 Do not resuscitate; I25.10 Atherosclerotic heart disease of native coronary artery without angina pectoris; I11.0 Hypertensive heart disease with heart failure; I45.10 Unspecified right bundle-branch block; I48.0 Paroxysmal atrial fibrillation; I70.0 Atherosclerosis of aorta; K21.9 Gastro-esophageal reflux disease without esophagitis; K29.70 Gastritis, unspecified, without bleeding; K52.89 Other specified noninfective gastroenteritis and colitis; M16.10 Unilateral primary osteoarthritis, unspecified hip; M85.80 Other specified disorders of bone density and structure, unspecified site; N40.0 Benign prostatic hyperplasia without lower urinary tract symptoms; R13.10 Dysphagia, unspecified; R29.6 Repeated falls; R62.7 Adult failure to thrive; W18.30XA Fall on same level, unspecified, initial encounter; Y93.9 Activity, unspecified; Y92.009 Unspecified place in unspecified non-institutional (private) residence as the place of occurrence of the external cause; Z79.899 Other long term (current) drug therapy; Z82.49 Family history of ischemic heart disease and other diseases of the circulatory system; Z91.81 History of falling; Z92.21 Personal history of antineoplastic chemotherapy; Z20.822 Contact with and (suspected) exposure to COVID-19; R53.1 Weakness; R19.7 Diarrhea, unspecified; K59.09 Other constipation; X58.XXXA Exposure to other specified factors, initial encounter; Y92.9 Unspecified place or not applicable; Y99.9 Unspecified external cause status
CPT/HCPCS: 36415; 36569; 36600; 43761; 70030-TC; 70450; 70496; 71045; 71111; 71250; 82378; 82533; 82747; 82784; 83550; 83605; 83615; 83690; 83735; 84100; 84153; 84155; 84165; 84443; 84478; 84681; 85014; 85025; 85610; 85730; 86334; 86625; 86850; 86900; 86901; 87040; 87046; 87070; 87086; 87177; 93005; 93307; 94002; 94003; 94640; 94660; 94664; 97161; A4217; A4663; A6209; C1758; C9113; G0378; J0282; J0330; J0692; J0696; J1120; J1160; J1610; J1644; J1720; J1756; J1815; J1940; J1956; J2270; J2354; J2370; J2405; J2543; J2916; J3010; J3370; J3475; J3480; J3490; J3590; J7030; J7040; J7042; J7050; J7060; J7070; J7614; J8597; P9047; Q9967